=== PATIENT | female | born 1960 | race Caucasian/White ===

== ENCOUNTER → 2017-06-23 13:05 | Outpatient (CLI) | payer MEDICARE, OTHER, SELFPAY ==
--- NOTE | 2017-06-23 13:08 | RAD_ITS ---
STUDY: X-RAY - RIGHT KNEE REASON FOR EXAM: Bilateral knee pain. TECHNIQUE: 4 view(s) of the knee. COMPARISON: None. FINDINGS: Normal visualized distal femur. Normal visualized proximal tibia and fibula. Normal proximal tibiofibular articulation. Normal medial femorotibial compartment. Normal lateral femorotibial compartment. Normal patellofemoral articulation. There is a small enthesophyte at the superior pole of the patella. RAD/Knee 4 or More Views IMPRESSION: Small patellar enthesophyte. Electronically Signed: Piero Sellers MD at 14:50 EDT Tel , Service support ,
--- NOTE | 2017-06-23 13:08 | RAD_ITS ---
STUDY: X-RAY - LEFT KNEE REASON FOR EXAM: Bilateral knee pain. TECHNIQUE: 4 view(s) of the knee. COMPARISON: None. FINDINGS: Normal visualized distal femur. Normal visualized proximal tibia and fibula. Normal proximal tibiofibular articulation. Normal medial femorotibial compartment. Normal lateral femorotibial compartment. There are small marginal osteophytes of the patella without joint space narrowing of the patellofemoral articulation. There is a small enthesophyte at the superior pole of the patella. RAD/Knee 4 or More Views IMPRESSION: Small marginal osteophytes of the patella. Small patellar enthesophyte. Electronically Signed: Piero Sellers MD at 14:51 EDT Tel , Service support ,
== END ==
PROVIDERS: Family Provider Family Medicine; PCP Family Medicine; Visit Provider Orthopaedic Surgery
DX: M25.561 Pain in right knee (principal); M25.562 Pain in left knee
CPT/HCPCS: 73564

== ENCOUNTER 2017-08-05 10:30 | Outpatient (RCR) | payer MEDICARE, OTHER, SELFPAY ==
--- NOTE | 2017-06-30 13:03 | HP.PTEVAL_ITS ---
Patient's Visit Information CHRISTEL MEYER is a 56 year old F referred to Physical Therapy by Kaylee Ordaz DO with a diagnosis of B knee pain. Date of Evaluation: 06/30/17 Physical Therapist: Mitchell Cadena DPT, OC - Visit Plan Frequency: 2x /Week Duration: 4-6 Weeks Plan: 2x/week for 4 weeks for AT for HS adn quad stretches, Knee AROM, Strength of LE, and LB ROM and core strength. Work to I program. - Subjective Subjective: Dr. Ordaz wanted her to come back after a fall as one knee hurt. R knee hurts anteriorly since falling. is remodelling basement and she tripped on his wood. Balance feels OK. Iced it and went to see Dr. Ku who did x ray and showed degeneration. Has had h/o L knee injections. Steps are hard and needs to do them one at a time. Up is easier then down. Fall was May late, and it did not hurt before that fall . Was unable prior to fall to come down steps due to R nerve pain in knee. Retired from [employer] due to LBP. Sitting is no problem. Ankles swell for years after injection in back. Sleep is OK, sometimes puts pillow under knees. Basic ADL are I and has to go slow and take breaks from standing. Has to limit cleaning to one room at a time. Laundry is in basement. Unable to do photography hobby as she is limiting in her standing and stooping. - Pain R anterior knee. Pain Intensity (Out of 10): 0 Pain Intensity Range: 0, 9 Comment: steps are 9/10, walking and sitting are better. - Objective Walks with cane slow and R antalgia but I.. Trasnfers to and fro chair with UE. Trasnfer to and from mat supine I and very painful in LB. LB AROM limited and painful to move. Lying supine is painful. LE AROM slow and painful in supine to 90 degrees R knee flexion and 105 L. Tight end feel and painful with OP but gets to 104 on R limited by pain. ankle aROM WFL and strength at 4-. Knee strength 3+ R knee ext and 4- L, 4- B HSC, mild pain R knee extension. reflexes 1/3 patella and achilles. Tender to touch lateral distal R patella and B patella stiff. Sensation LE WNL to gross light touch. - ant drawer adn Catrina. - posterior sag. - varus and valgus. - Goals Goal 1:: Pain 90% back to normal and always painfree at rest Goal Time Frame: 2-4 Weeks Goal 2:: Transfer to and fro supine in a timely manner withpout obvoious pain. Goal Time Frame: 4-6 Weeks Goal 3:: Pain no greater than 2/10 with ambulation at home and chores/cooking. Goal Time Frame: 4-6 Weeks - Rehabilitation Potential Physical Therapy Diagnosis: B knee pain exacerbated R inflammation with fall. Prognosis limited due to LBP with movement. Rehabilitation Potential: Fair - Anticipated Interventions Patient/Client Instruction: Educate patient on: Condition, Plan of Care For the Purpose of:: To decrease pain, To increase oxygenation perfusion Therapeutic Exercise to Include: Strength training, Flexibilty training, In an aquatic setting, Passive ROM, Active ROM, Dynamic Lumbar Stabilization For the Purpose of:: To decrease pain, To increase ROM, To improve nutrient delivery to tissue, To improve muscle performance and motor function, To improve ability of physical actions for home/community/work/leisure, To improve gait and locomotor functions Thank you for the opportunity to evaluate your patient. For Medicare and Medicare HMO plans, please review the plan of care and approve it. It will need to be FAXED BACK to us at [phone] for Medicare purposes. Please let me know if there are questions or concerns regarding this plan of care. Physician Signature: Date:
--- NOTE | 2017-08-05 11:15 | HP.PTDCSUM_ITS ---
HP - PT D/C Summary It has been my pleasure to treat CHRISTEL MEYER under orders from Kaylee Ordaz DO, for the diagnosis of B knee pain for a total of 9 visit(s). Discharge Date: 08/05/17 Please see the following information for a summary of their discharge status. 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 Water for a while made nerves pulse and feel abrasive on the skin. Both knees can meg tanteriorly. R knee is OK since the fall but still painful and sometimes feels numb. Some improvement overall, not where she wants to be - Pain R anterior knee. Pain Intensity (Out of 10): 0 L knee Pain Intensity (Out of 10): 0 Lumbar Spine Pain Intensity (Out of 10): 0 - Objective Objective/Function: Knee ROM is 110+ without pain today, mild tenderness to palpation L anterior knee, full extension B. walking without antalgia today. transfer to and fro supine still very challenging and had MRI on back and has stenosis. OVERALL PATIENT DOES OK WITH THE WATER BUT DISCOMFORT IN KNEES STILL FRUSTRATING AT TIMES. - Goals Goal 1:: Pain 90% back to normal and always painfree at rest Goal Progress: not met Goal 2:: Transfer to and fro supine in a timely manner withpout obvoious pain. Goal Progress: Not Progressing Goal 3:: Pain no greater than 2/10 with ambulation at home and chores/cooking. Goal Progress: Goal Met - Plan Plan: D/C, pt to schedule with [facility] for other options(consider bracing) and continue pool ex I at home or as member. - D/C Information Discharge Comments: Pt not significantly improved in pain but does feel better generally ex in the water. She feels she can continue that I at her home pool or will consider joining as a member. She will schedule with doctor regarding other options for her knees adn is already treated by a back doctor for her back pain and had MRI which shows spinal stenosis. If there are questions or concerns regarding this patient's physical therapy, please feel free to call me at [phone]. Thank you for the referral of this patient. Sincerely, iMtchell Cadena, DPT, [place]
== END 2017-08-05 19:00 | disposition home or self-care (01) ==
LOC: PT 10:30
PROVIDERS: Family Provider Family Medicine; PCP Family Medicine; Visit Provider Orthopaedic Surgery
DX: M17.0 Bilateral primary osteoarthritis of knee (principal)
CPT/HCPCS: 97113; 97162; 97530

== ENCOUNTER → 2017-12-15 11:44 | Outpatient (CLI) | payer MEDICARE, OTHER, SELFPAY ==
--- NOTE | 2017-12-15 11:49 | RAD_ITS ---
STUDY: X-RAY - RIGHT SHOULDER REASON FOR EXAM: Female, 57 years old. Right shoulder pain TECHNIQUE: 4 view(s) of the shoulder. COMPARISON: None. FINDINGS: Normal glenohumeral articulation. There is degenerative arthrosis of the acromioclavicular joint without inferior osseous spur formation. Normal acromion. Normal humeral head and visualized proximal humerus. The soft tissue structures are unremarkable. Normal visualized pulmonary apex. RAD/Shoulder min 2 Views IMPRESSION: Minimal degenerative change. No acute findings Electronically Signed: Keith Narayanan DO at 10:09 EST Tel , Service support ,
== END ==
PROVIDERS: Family Provider Family Medicine; PCP Family Medicine; Referring Provider Family Medicine; Visit Provider Family Medicine
DX: M25.511 Pain in right shoulder (principal)
CPT/HCPCS: 73030

== ENCOUNTER → 2017-12-19 07:21 | Outpatient (CLI) | payer MEDICARE, OTHER, SELFPAY ==
--- NOTE | 2017-12-19 07:24 | US_ITS ---
STUDY: ABDOMINAL ULTRASOUND REASON FOR EXAM: Female, 57 years old. Right upper quadrant pain. TECHNIQUE: Transabdominal ultrasound was performed with real-time and static durán scale imaging. TECHNICAL QUALITY: Adequate. COMPARISON: None. FINDINGS: Liver: The liver is enlarged and measures 21.4 cm. There is increased echogenicity consistent with fatty infiltration. The bile ducts are within normal limits. There is hepatic color flow. The direction of portal flow is hepatopetal. There is no demonstrated mass lesion. Portal vein measurement: Gallbladder: Normal distended gallbladder. The gallbladder wall measures 2.0 mm. There is a negative sonographic Story's sign. There is no pericholecystic fluid. There are multiple echogenic structures within the gallbladder, consistent with multiple gallstones. Common Bile Duct (C.B.D.): The common bile duct measures 3.4 mm. Pancreas: Normal size of the head, body of the pancreas. The tail portion is obscured due to overlying bowel gas. There is normal echogenicity of the pancreas. There is no demonstrated pancreatic mass or cyst. Spleen: Normal size of the spleen. The spleen measures 12.8 cm x 6.6 cm x 4.9 cm. Right Kidney: Normal size of the right kidney. The right kidney measures 12.6 cm x 5.4 cm x 5.0 cm. Normal renal cortex. The right cortex measures 1.1 cm. There is no demonstrated renal mass or cyst. There is no right hydronephrosis. Left Kidney: Normal size of the left kidney. The left kidney measures 12.0 cm x 5.7 cm x 5.0 cm. Normal renal cortex. The left cortex measures 1.6 cm. There is no demonstrated renal mass or cyst. There is no left hydronephrosis. Aorta: Unremarkable. I.V.C.: The IVC is patent. There is no ascites. US/Abdomen Complete IMPRESSION: Hepatomegaly. Fatty infiltration of the liver. Gallstones. Electronically Signed: Nando Chu MD at 16:04 EST Tel [phone], Service support ,
== END ==
PROVIDERS: Family Provider Family Medicine; PCP Family Medicine; Referring Provider Family Medicine; Visit Provider Family Medicine
DX: R10.31 Right lower quadrant pain (principal)
CPT/HCPCS: 76700

== ENCOUNTER → 2018-01-03 07:48 | Outpatient (CLI) | payer MEDICARE, OTHER, SELFPAY ==
[2017-12-27 09:36] VITALS: BMI 50.2
--- NOTE | 2018-01-03 07:53 | CT_ITS ---
STUDY: CT ABDOMEN AND PELVIS WITHOUT CONTRAST REASON FOR EXAM: Female, 57 years old. pain right groin pain RADIATION DOSAGE (If Supplied By Facility): CTDIvol = ( 23.26 ) mGy, DLP = ( 1278.24 ) mGycm TECHNIQUE: Transaxial images were obtained from the dome of the diaphragm to the symphysis pubis with oral contrast, and without intravenous contrast. Sagittal and coronal images were reconstructed. Individualized dose optimization techniques were used for this CT. COMPARISON: None. FINDINGS: The visualized lung bases are unremarkable. The visualized portions of the heart are within normal limits. The liver is enlarged and fatty infiltrated. Normal gallbladder and extrahepatic biliary system. Normal spleen. Normal pancreas. Normal bilateral adrenal glands. Normal right kidney. Normal left kidney. There is contrast in the stomach. Normal small intestine. There is moderate stool in the colon. There may be a few diverticula present without evidence of diverticulitis. There is non-visualization of the appendix. Is partial calcification of the aorta. Normal inferior vena cava. Normal retroperitoneum. Normal urinary bladder. There is a calcification in the fundus of the uterus suggesting fibroid. There is a small umbilical hernia containing fat. There is anterolisthesis L4-L5 with severe neural foramina narrowing severe central stenosis. At L3-L4 there is disc space narrowing broad disc osteophyte severe neural foraminal narrowing severe central stenosis. CT/Abdomen/Pel W ORAL Cont Only IMPRESSION: Mild to moderate constipation Hepatic steatosis. Diverticulosis no evidence of diverticulitis Advanced degenerative change of L3-L4 L4-L5 No visualized hydronephrosis. Electronically Signed: Stefani Marinelli MD at 2:57 EST Tel , Service support ,
--- OUTSIDE RECORDS SUMMARY | 2018-02-14 20:25 | XMS RPT_ITS ---
:1960 Author Organization OHIP Support Name Relationship Address Phone D Unavailable Unavailable Unavailable MITCH, WENDY Unavailable [address] + [place] [address] MITCH, KENIA Unavailable [address] + [place] [address] D Unavailable Unavailable Unavailable MITCH, WENDY Unavailable [address] + [place] [address] MITCH, KENIA Unavailable [address] + [place] [address] D Unavailable Unavailable Unavailable MITCH, WENDY Unavailable [address] + [place] [address] MITCH, KENIA Unavailable [address] + [place] [address] D Unavailable Unavailable Unavailable MITCH, WENDY Unavailable [address] + [place] [address] MITCH, KENIA Unavailable [address] + [place] [address] D Unavailable Unavailable Unavailable MITCH, WENDY Unavailable [address] + [place] [address] MITCH, KENIA Unavailable [address] + [place] [address] D Unavailable Unavailable Unavailable MITCH, WENDY Unavailable [address] + [place] [address] MITCH, KENIA Unavailable [address] + [place] [address] D Unavailable Unavailable Unavailable MITCH, WENDY Unavailable [address] + [place] [address] MITCH, KENIA Unavailable [address] + [place] [address] D Unavailable Unavailable Unavailable MITCH, WENDY Unavailable [address] + [place] [address] MITCH, KENIA Unavailable [address] + [place] [address] MITCH, WENDY Unavailable Unavailable + D Unavailable Unavailable Unavailable MITCH, WENDY Unavailable [address] + [place] [address] MITCH, KENIA Unavailable [address] + [place] [address] MITCH, WENDY Unavailable Unavailable + D Unavailable Unavailable Unavailable MITCH, WENDY Unavailable [address] + [place] [address] MITCH, KENIA Unavailable [address] + [place] [address] D Unavailable Unavailable Unavailable MITCH, WENDY Unavailable [address] + [place] [address] MITCH, KENIA Unavailable [address] + [place] [address] MITCH, WENDY Unavailable Unavailable + MITCH, WENDY Unavailable [address] + [place] [address] MITCH, WENDY Unavailable [address] + [place] [address] MITCH, WENDY Unavailable [address] + [place] [address] MITCH, WENDY Unavailable [address] + [place] [address] D Unavailable Unavailable Unavailable MITCH, WENDY Unavailable [address] + [place] [address] MITCH, KENIA Unavailable [address] + [place] [address] MITCH, WENDY Unavailable [address] + [place] [address] MITCH, WENDY Unavailable [address] + [place] [address] MITCH, WENDY Unavailable [address] + [place] [address] MITCH, WENDY Unavailable [address] + [place] [address] WENDY MEYER Unavailable [address] + [place] [address] WENDY MEYER Unavailable [address] + [place] [address] Care Team Providers Name Role Phone Robotlakisha, Giselle Attending Unavailable Brown, Faisal Referring Unavailable Robotham, Giselle Attending Unavailable Robotham, Giselle Attending Unavailable Robotham, Giselle Referring Unavailable Brown, Faisal Primary Care Unavailable Robotham, Giselle Attending Unavailable Brown, Faisal Referring Unavailable Brown, Faisal Attending Unavailable Brown, Faisal Primary Care Unavailable Brown, Faisal Referring Unavailable Brown, Faisal Attending Unavailable Brown, Faisal Referring Unavailable Brown, Faisal Primary Care Unavailable Brown, Faisal Attending Unavailable Brown, Faisal Referring Unavailable Chicorelli, Kaylee Attending Unavailable Chicorelli, Kaylee Referring Unavailable Brown, Faisal Primary Care Unavailable Chicorelli, Kaylee Attending Unavailable Chicorelli, Kaylee Referring Unavailable Brown, Faisal Primary Care Unavailable Chicorelli, Kaylee Attending Unavailable Brown, Faisal Referring Unavailable Brown, Faisal Primary Care Unavailable Brown, Faisal Primary Care Unavailable Referred, Self Attending Unavailable DOCTOR, OUT OF TOWN Consulting Unavailable Brown, Faisal Attending Unavailable Brown, Faisal Referring Unavailable Brown, Faisal Primary Care Unavailable KEVIN PETERS CNP Attending Unavailable BROWN, FAISAL Primary Care Unavailable HEMANTH LUNA MD Attending Unavailable BROWN, FAISAL Primary Care Unavailable ETHAN NORTON CNP Attending Unavailable BROWN, FAISAL Primary Care Unavailable HEMANTH LUNA MD Attending Unavailable BROWN, FAISAL Primary Care Unavailable BROWN, FAISAL Attending Unavailable BROWN, FAISAL Primary Care Unavailable Ethan Norton MSN,PRODUCT SUPPORT REPRESENTATIVE Attending Unavailable Ethan Norton MSN,PRODUCT SUPPORT REPRESENTATIVE Attending Unavailable Ethan Norton MSN,PRODUCT SUPPORT REPRESENTATIVE Attending Unavailable Willis Dejesus Attending Unavailable Brown, Faisal R Primary Care Unavailable Ethan Norton MSN,PRODUCT SUPPORT REPRESENTATIVE Attending Unavailable No Family Physician given Primary Care Unavailable PROBLEMS PROBLEMS DATE TYPE CONDITION / CODE ATTENDING STATUS SOURCE 12/27/2017 Unknown R10.31 - Right lower Robotham, Active [place] quadrant pain / [facility] R10.31(ICD-10) Hospital Repository 12/15/2017 Unknown M25.511 - Pain in Brown, Faisal Active [place] right shoulder / Community M25.511(ICD-10) Hospital Repository 12/06/2017 Unknown G89.29 - Other Brown, Faisal Active [place] chronic pain / Community G89.29(ICD-10) Hospital Repository 12/06/2017 Unknown H91.93 - Unspecified Brown, Faisal Active [place] hearing loss, Community bilateral / Hospital H91.93(ICD-10) Repository 12/06/2017 Unknown M53.9 - Dorsopathy, Brown, Faisal Active [place] unspecified / Community M53.9(ICD-10) Hospital Repository 12/06/2017 Unknown M17.0 - Bilateral Brown, Faisal Active [place] primary Community osteoarthritis of Hospital knee / M17.0(ICD-10) Repository 06/23/2017 Unknown M25.561 - [facility], [facility] [place] right knee / [facility] M25.561(ICD-10) Hospital Repository 06/23/2017 Unknown M25.562 - Pain in [facility], [facility] [place] [facility] 03/30/2017 Admitting Unknown / Ethan Norton Medical diagnosis UNK(Unknown) MSN,[facility] [place] Repository PROCEDURES PROCEDURES No Procedure Records FoundRESULTS RESULTS SURGERY VISIT REPORT Observed: 01/16/2018 Status: F Source: [place] 8:16 AM [facility] [address] [place] [address] [address] [place] [address] OFFICE VISIT Date of Service: 01/11/18 MR#: [id number] Acct: [id number] Name: CHRISTEL MEYER Rep #: [id number] : 1960 Provider: Giselle Moody MD Age/Sex: 57/F Location: [facility] Status: Signed Intake Vital Signs01/11/18 Body Mass Index (BMI) 50.2 Intake Visit Reasons: Discuss CT results Chief Complaint: Rt shoulder pain Social Services Director Required: No Is patient in pain?: No Allergies mushroom Allergy (Verified 01/11/18 09:19) Anaphylaxis [place] Adverse Reaction (Unknown, Uncoded 12/27/17 09:38) Unknown Medications Calcium Carbonate/Vitamin D3 [Caltrate 600 Plus D3 Tablet] 1 ea PO DAILY 07/28/16 [History Confirmed 01/11/18] Iron Poly/Vit C [Niferex-150] 125 mg PO DAILYCM 07/28/16 [History Confirmed 01/11/18] Latanoprost 0.005% [Xalatan Opthalmic] 1 drp EACH EYE QHS 07/28/16 [History Confirmed 01/11/18] Multivitamins,Therapeutic [Multivitamin] 1 tab PO DAILY 07/28/16 [History Confirmed 01/11/18] Pregabalin [Lyrica] 150 mg PO TID 07/28/16 [History Confirmed 01/11/18] Timolol 0.5% [Timoptic] 1 drp EACH EYE BID 07/28/16 [History Confirmed 01/11/18] Verapamil HCl [Verapamil ER] 120 mg PO DAILY 07/28/16 [History Confirmed 01/11/18] traMADol [Ultram (G)] 50 mg PO Q4H PRN PRN 07/28/16 [History Confirmed 01/11/18] levocetirizine 5 mg tablet 5 mg PO QHS PRN #30 tab 05/18/17 [Rx Confirmed 01/11/18] montelukast 10 mg tablet 10 mg PO QHS 05/25/17 [History Confirmed 01/11/18] methylprednisolone 4 mg tablets in a dose pack See Rx Instructions PO PER PKG DIR #21 tab 12/06/17 [Rx Confirmed 01/11/18] diclofenac sodium 75 mg tablet,delayed release 75 mg PO BID #60 tab 01/03/18 [Rx Confirmed 01/11/18] PFSH Medical History Deaf (Chronic) Amyloid pterygium of right eye (Acute) Deaf (Chronic) DJD (degenerative joint disease) of knee (Chronic) Back problem (Chronic) Arthritis (Chronic) Surgical History Hx of toe surgery (Acute) History of appendectomy (Acute) Family History Father Heart disease Son Asthma Mother Arthritis Aunt Diabetes Social History Smoking Status: Never smoker second hand exposure: No alcohol intake: never substance use type: does not use caffeine: Yes what type of physical activity do you participate in: none seatbelt use: always HPI HPI HPI: CHRISTEL MITCH, is a 57 F who presents to the office today for discussion of CT results due to left lower quadrant/groin pain. Patient CT abdomen pelvis did not show any inguinal or right lower quadrant hernia. Patient states that she thinks that her pain may be actually a little higher than previously so may be more in the right lower quadrant versus the groin. She states she gets this pain about once every 4 days. She also states she will get right leg numbness with prolonged sitting and occasional left leg numbness of the numbness can occur maybe about every 2 days or so she is unsure if the pain coincides with her leg numbness as well. Patient does have multiple back problems. Exam Const General: cooperative, no acute distress, comfortable Nutritional Appearance: obese GI Other: Abdomen, soft, nondistended, mildly tender at the top of her previous appendectomy incision which is more in the right lower quadrant and not the right groin, no appreciated hernia in the right lower quadrant or right groin Assessment AND Plan Problems 1. Right lower quadrant abdominal pain R10.31 Plan Patient's pain is now mainly in the right lower quadrant not in the right groin. States he only gets it about every 4 days. She also did note she will get right leg numbness with walking or with some prolonged sitting. Discussed with patient that CT abdomen pelvis did not show any signs of a hernia and again on exam I do not appreciate any hernias. This may be due to a muscle strain versus issue with her back. Especially if her right leg numbness occurs about the same time which currently patient is unsure of. She does have an appointment with her back doctor at the end of January. Recommend she can try to take the ibuprofen to see if that helps with the pain but recommended taking that with food. Patient is agreeable with plan. Follow-up as needed. Patient agreeable with plan Giselle Moody M.D. Pager: [phone] [facility] [address] [place] [address], [facility], [address] [place] [id number] Office: [phone] Plan Detail Follow Up Follow-up as needed Coding Level of Care Code Off vis,est,level 3 Diagnoses Right lower quadrant abdominal pain R10.31 01/16/18 0816 <Electronically signed by Giselle Moody MD> Date [facility]elle [facility] Signature: Date (if applicable) CC: Faisal Matthews DO ABDOMEN/PEL W ORAL CONT Observed: 01/03/2018 Status: F Source: [place] ONLY 7:53 AM [facility] Services [address] [place] [address] Abdomen/Pel W ORAL Cont Only MR#: [id number] Acct: [id number] Name: CHRISTEL MEYER Rep #: [id number] : 1960 F 57 From: Stefani Marinelli MD PCP: Faisal Matthews DO Status: REG CLI Study: Abdomen/Pel W ORAL Cont Only Date of Exam: 01/03/18 Exam# [id number] Ordering Dr: Giselle Moody MD STUDY: CT ABDOMEN AND PELVIS WITHOUT CONTRAST REASON FOR EXAM: Female, 57 years old. pain right groin pain RADIATION DOSAGE (If Supplied By Facility): CTDIvol = ( 23.26 ) mGy, DLP = ( 1278.24 ) mGycm TECHNIQUE: Transaxial images were obtained from the dome of the diaphragm to the symphysis pubis with oral contrast, and without intravenous contrast. Sagittal and coronal images were reconstructed. Individualized dose optimization techniques were used for this CT. COMPARISON: None. FINDINGS: The visualized lung bases are unremarkable. The visualized portions of the heart are within normal limits. The liver is enlarged and fatty infiltrated. Normal gallbladder and extrahepatic biliary system. Normal spleen. Normal pancreas. Normal bilateral adrenal glands. Normal right kidney. Normal left kidney. There is contrast in the stomach. Normal small intestine. There is moderate stool in the colon. There may be a few diverticula present without evidence of diverticulitis. There is non-visualization of the appendix. Is partial calcification of the aorta. Normal inferior vena cava. Normal retroperitoneum. Normal urinary bladder. There is a calcification in the fundus of the uterus suggesting fibroid. There is a small umbilical hernia containing fat. There is anterolisthesis L4-L5 with severe neural foramina narrowing severe central stenosis. At L3-L4 there is disc space narrowing broad disc osteophyte severe neural foraminal narrowing severe central stenosis. CT/Abdomen/Pel W ORAL Cont Only IMPRESSION: Mild to moderate constipation Hepatic steatosis. Diverticulosis no evidence of diverticulitis Advanced degenerative change of L3-L4 L4-L5 No visualized hydronephrosis. Electronically Signed: [place] MD at 2:57 EST Tel , Service support , CC: Faisal Matthews DO; Giselle Moody MD Title One Reading Teacher: Signed SURGERY VISIT REPORT Observed: 12/28/2017 Status: F Source: [place] 6:47 PM [facility] [address] [place] [address] [address] [place] [address] OFFICE VISIT Date of Service: 12/27/17 MR#: [id number] Acct: [id number] Name: CHRISTEL MEYER Rep #: [id number] : 1960 Provider: Giselle Moody MD Age/Sex: 57/F Location: [facility] Status: Signed Intake Vital Signs12/27/17 Height 4 ft 11.5 in 12/27/17 Weight: 253 lb Intake Visit Reasons: Gall Stones US 12/19 [facility] Chief Complaint: Rt shoulder pain Social Services Director Required: Yes Is patient in pain?: No Allergies mushroom Allergy (Verified 12/27/17 09:38) Anaphylaxis [place] Adverse Reaction (Unknown, Uncoded 12/27/17 09:38) Unknown Medications Calcium Carbonate/Vitamin D3 [Caltrate 600 Plus D3 Tablet] 1 ea PO DAILY 07/28/16 [History Confirmed 12/27/17] Iron Poly/Vit C [Niferex-150] 125 mg PO DAILYCM 07/28/16 [History Confirmed 12/27/17] Latanoprost 0.005% [Xalatan Opthalmic] 1 drp EACH EYE QHS 07/28/16 [History Confirmed 12/27/17] Multivitamins,Therapeutic [Multivitamin] 1 tab PO DAILY 07/28/16 [History Confirmed 12/27/17] Pregabalin [Lyrica] 150 mg PO TID 07/28/16 [History Confirmed 12/27/17] Timolol 0.5% [Timoptic] 1 drp EACH EYE BID 07/28/16 [History Confirmed 12/27/17] Verapamil HCl [Verapamil ER] 120 mg PO DAILY 07/28/16 [History Confirmed 12/27/17] traMADol [Ultram (G)] 50 mg PO Q4H PRN PRN 07/28/16 [History Confirmed 12/27/17] levocetirizine 5 mg tablet 5 mg PO QHS PRN #30 tab 05/18/17 [Rx Confirmed 12/27/17] diclofenac sodium 75 mg tablet,delayed release 75 mg PO BID #60 tab 05/25/17 [Rx Confirmed 12/27/17] montelukast 10 mg tablet 10 mg PO QHS 05/25/17 [History Confirmed 12/27/17] methylprednisolone 4 mg tablets in a dose pack See Rx Instructions PO PER PKG DIR #21 tab 12/06/17 [Rx Confirmed 12/27/17] PFSH Medical History Deaf (Chronic) Amyloid pterygium of right eye (Acute) Deaf (Chronic) DJD (degenerative joint disease) of knee (Chronic) Back problem (Chronic) Arthritis (Chronic) Surgical History Hx of toe surgery (Acute) History of appendectomy (Acute) Family History Father Heart disease Son Asthma Mother Arthritis Aunt Diabetes Social History Smoking Status: Never smoker second hand exposure: No alcohol intake: never substance use type: does not use caffeine: Yes what type of physical activity do you participate in: none seatbelt use: always HPI HPI HPI: CHRISTEL MEYER, is a 57 F who presents to the office today for R groin pain 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 Pt states she gets R groin discomfort 3-4/10 and marble-like bulge (can't reduce) +ttp. Pt denies n/v/epigastric/ RUQ, LUQ abd pain. Pt had U/S abd - +fatty liver and a couple of gallstones, pt thought the U/S was for her right groin pain. She admits to GERD with certain foods > 5years ago but none currently. ROS General General: Yes weight change and fatigue Gastro Gastrointestinal: No abdominal pain, No nausea or vomiting, No diarrhea, Yes constipation, No blood in stool, No acid reflux, No hemorrhoids, No ulcers, No gallbladder problem, No black,tarry stools Exam Const General: cooperative, healthy appearing, comfortable, no acute distress Resp Effort AND Inspection: normal respiratory effort GI Inspection: obesity, scar (RLQ scar) Palpation: soft, no guarding, tender (right groin/lower quadrant) Other: due to body habitus unable to feel an obvious hernia, +ttp RLQ/groin Assessment AND Plan Problems 1. Right groin pain R10.[address] a/p as I'm unable to feel an obvious hernia also she has a RLQ from her appendectomy, so if she did have a hernia could be in the groin vs at previous incision, unable evaluation well on exam. Pt is agreeable with plan. Also discussed with pt the importance of healthy diet/watching calorie intake as she is unable to exercise due to her back. Orders Orders: Plan Detail Follow Up will f/u w pt after CT a/p Coding Level of Care Code Off vis,new,level 3 Diagnoses Right groin pain R10.31 12/28/17 6347 <Electronically signed by Giselle Moody MD> Date Giselle Moody MD Cosigner Signature: Date (if applicable) CC: Faisal Matthews, DO ABDOMEN COMPLETE Observed: 12/19/2017 Status: F Source: [place] 7:24 AM [facility] [address] [place] [address] Abdomen Complete MR#: [id number] Acct: [id number] Name: CHRISTEL MEYER Rep #: [id number] : 1960 F 57 From: Nando Chu MD PCP: Faisal Matthews DO Status: REG CLI Study: Abdomen Complete Date of Exam: 12/19/17 Exam# [id number] Ordering Dr: Faisal Matthews DO STUDY: ABDOMINAL ULTRASOUND REASON FOR EXAM: Female, 57 years old. Right upper quadrant pain. TECHNIQUE: Transabdominal ultrasound was performed with real-time and static durán scale imaging. TECHNICAL QUALITY: Adequate. COMPARISON: None. FINDINGS: Liver: The liver is enlarged and measures 21.4 cm. There is increased echogenicity consistent with fatty infiltration. The bile ducts are within normal limits. There is hepatic color flow. The direction of portal flow is hepatopetal. There is no demonstrated mass lesion. Portal vein measurement: Gallbladder: Normal distended gallbladder. The gallbladder wall measures 2.0 mm. There is a negative sonographic Story's sign. There is no pericholecystic fluid. There are multiple echogenic structures within the gallbladder, consistent with multiple gallstones. Common Bile Duct (C.B.D.): The common bile duct measures 3.4 mm. Pancreas: Normal size of the head, body of the pancreas. The tail portion is obscured due to overlying bowel gas. There is normal echogenicity of the pancreas. There is no demonstrated pancreatic mass or cyst. Spleen: Normal size of the spleen. The spleen measures 12.8 cm x 6.6 cm x 4.9 cm. Right Kidney: Normal size of the right kidney. The right kidney measures 12.6 cm x 5.4 cm x 5.0 cm. Normal renal cortex. The right cortex measures 1.1 cm. There is no demonstrated renal mass or cyst. There is no right hydronephrosis. Left Kidney: Normal size of the left kidney. The left kidney measures 12.0 cm x 5.7 cm x 5.0 cm. Normal renal cortex. The left cortex measures 1.6 cm. There is no demonstrated renal mass or cyst. There is no left hydronephrosis. Aorta: Unremarkable. I.V.C.: The IVC is patent. There is no ascites. US/Abdomen Complete IMPRESSION: Hepatomegaly. Fatty infiltration of the liver. Gallstones. Electronically Signed: Nando Chu MD at 16:04 EST Tel [phone], Service support , CC: Faisal Matthews DO Title One Reading Teacher: Signed SHOULDER MIN 2 VIEWS Observed: 12/15/2017 Status: F Source: [place] 11:49 AM [facility] Imaging Services [address] [place] [id number] Shoulder min 2 Views MR#: [id number] Acct: [id number] Name: MITCHCHRISTEL MILLER Hi Rep #: [id number] : 1960 F 57 From: Keith Narayanan DO PCP: Faisal Matthews DO Status: REG CLI Study: Shoulder min 2 Views Date of Exam: 12/15/17 Exam# [id number] Ordering Dr: Faisal Matthews DO STUDY: X-RAY - RIGHT SHOULDER REASON FOR EXAM: Female, 57 years old. Right shoulder pain TECHNIQUE: 4 view(s) of the shoulder. COMPARISON: None. FINDINGS: Normal glenohumeral articulation. There is degenerative arthrosis of the acromioclavicular joint without inferior osseous spur formation. Normal acromion. Normal humeral head and visualized proximal humerus. The soft tissue structures are unremarkable. Normal visualized pulmonary apex. RAD/Shoulder min 2 Views IMPRESSION: Minimal degenerative change. No acute findings Electronically Signed: Keith Narayanan DO at 10:09 EST Tel , Service support , CC: Faisal Matthews DO Title One Reading Teacher: Signed INTERNAL MEDICINE Observed: 12/06/2017 Status: F Source: [place] OFFICE VISIT 12:47 PM [facility] [address] [place] [address] [place] [address] OFFICE VISIT Date of Service: 12/06/17 MR#: [id number] Acct: [id number] Name: CHRISTEL MEYER Rep #: [id number] : 1960 Provider: Faisal Matthews DO Age/Sex: 57/F Location: [facility] Status: Signed Intake Vital Signs12/06/17 Height 4 ft 11.5 in 12/06/17 Weight: 253 lb 12/06/17 Body Mass Index (BMI) 50.2 12/06/17 Blood Pressure 109/72 12/06/17 Blood Pressure Location Rt brachial Intake Visit 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, 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 Chief Complaint: Rt shoulder pain Social Services Director Required: Yes Is patient in pain?: Yes (Rt shoulder ) Pain scale (1-10): 3 Allergies mushroom Allergy (Verified 12/06/17 11:30) Anaphylaxis [place] Adverse Reaction (Unknown, Uncoded 12/06/17 11:30) Unknown Medications Calcium Carbonate/Vitamin D3 [Caltrate 600 Plus D3 Tablet] 1 ea PO DAILY 07/28/16 [History Confirmed 12/06/17] Iron Poly/Vit C [Niferex-150] 125 mg PO DAILYCM 07/28/16 [History Confirmed 12/06/17] Latanoprost 0.005% [Xalatan Opthalmic] 1 drp EACH EYE QHS 07/28/16 [History Confirmed 12/06/17] Multivitamins,Therapeutic [Multivitamin] 1 tab PO DAILY 07/28/16 [History Confirmed 12/06/17] Potassium Gluconate 595 mg PO DAILY 07/28/16 [History Confirmed 12/06/17] Pregabalin [Lyrica] 150 mg PO TID 07/28/16 [History Confirmed 12/06/17] Timolol 0.5% [Timoptic] 1 drp EACH EYE BID 06/21/17 [History Confirmed 12/06/17] Verapamil HCl [Verapamil ER] 120 mg PO DAILY 07/28/16 [History Confirmed 12/06/17] traMADol [Ultram (G)] 50 mg PO Q4H PRN PRN 07/28/16 [History Confirmed 12/06/17] levocetirizine 5 mg tablet 5 mg PO QHS PRN #30 tab 05/18/17 [Rx Confirmed 12/06/17] diclofenac sodium 75 mg tablet,delayed release 75 mg PO BID #60 tab 05/25/17 [Rx Confirmed 12/06/17] montelukast 10 mg tablet 10 mg PO QHS 05/25/17 [History Confirmed 12/06/17] methylprednisolone 4 mg tablets in a dose pack See Rx Instructions PO PER PKG DIR #21 tab 12/06/17 [Rx Confirmed 12/06/17] PFSH Medical History Deaf (Chronic) Back problem (Chronic) Arthritis (Chronic) Surgical History History of appendectomy (Acute) Family History Father Heart disease Son Asthma Mother Arthritis Aunt Diabetes Social History Smoking Status: Never smoker alcohol intake: never substance use type: does not use what type of physical activity do you participate in: none HPI HPI Chief Complaint: Rt shoulder pain Details: CHRISTEL MEYER, is a 57 F who presents to the office today for right shoulder pain and some minimal left shoulder pain. She feels she injured herself about a month ago when she was getting out of her recliner. Pain is especially severe when she tries to lift her 3-month-old grandchild up. She also complains of feeling a painful lump in her right groin, which is not as big as it was several weeks ago but is still painful. ROS Const Constitutional: No chills, fatigue, fever(s), frequent falls, malaise, weakness, sleep problems or change in appetite Eyes Eyes: No blurry vision, change in vision, double vision, discharge or visual disturbances ENT ENT: No abnormal hearing, ear pain, ear pressure, tinnitus or dizziness/vertigo Resp Respiratory: No cough, shortness of breath or wheezing Cardio Cardiology: No chest pain at rest, chest pain with exertion, shortness of breath, dyspnea on exertion, generalized swelling, irregular heart rhythm, lightheadedness, orthopnea, fast heart rate or palpitations Gastro GI: Positive for abdominal pain (Rt Groin - feels like a ball); no change in bowel habits, constipation, diarrhea, nausea/dyspepsia or vomiting Genitourinary-Female: No difficulty urinating, burning urination, painful urination, urinary incontinence, urinary frequency, urinary urgency, urinary hesitancy, urinary retention, Frequent nighttime urination/ nocturia, sexual problems, genital lesions, abnormal vaginal bleeding, pelvic pain, vaginal dryness, vaginal odor or Vaginal Itching Musc Musculoskeletal: Positive for joint pain (Rt shoulder AND some on L. Injured when trying to get out of recliner chair.), back pain and limited range of motion; no joint swelling, numbness, tingling or muscle weakness Skin Skin: No change in skin color, itching, rash or wounds Breast Breast: No breast lump or breast pain Neuro Neurology: No frequent falls, weakness, abnormal hearing, numbness, tingling, unsteady gait/balance, dizziness, loss of vision, memory loss or visual disturbances Psych Psychiatric: No memory loss, No anxiety, No change in appetite, No depression, No Thoughts of harming yourself/Others Endo Endocrine: No fatigue, heat intolerance, increased thirst/drinking, increased hunger or increased urination Aller/Imm Allergy/Immunologic: No wheezing, itchy eyes or seasonal allergy symptoms Charles/Lymp Hematologic/Lymphatic: No easy bleeding, easy bruising or enlarged lymph nodes Exam Const General: cooperative Nutritional Appearance: overweight Orientation: oriented x3 Limitations: other limitations [facility] Ears: hearing grossly impaired bilaterally Resp Effort AND Inspection: normal respiratory effort Auscultation: Bilateral: Clear to Auscultation Cardio Palpation: normal PMI Rate: regular rate Rhythm: regular rhythm GI Inspection: normal to inspection Auscultation: normal bowel sounds Percussion: normal to percussion Palpation: tender in the RLQ, hernia direct inguinal (Perhaps a defect was palpated. Very localized tenderness) on the right Musc Musculoskeletal: Yes joint tenderness (Both shoulders tender at the AC joint, but neg objective findings. ); no joint redness, joint warmth, decreased ROM, spinal deformity, scoliosis to L, scoliosis to R, lordosis or muscle weakness Assessment AND Plan Problems 1. Acute pain of right shoulder M25.511 2. Groin pain, chronic, right R10.31; G89.29 3. Bilateral deafness H91.93 Patient has congenital deafness. 4. Back problem M53.9 5. 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 Plan This patient was seen for several complaints primary complaint was painful shoulders and while she had a lot of subjective complaints objectively I really could not find any problems with joint limitation or weakness just discomfort. Also her complaints in the abdomen there was a very localized area in the right groin that was extremely painful but it was just a questionable defect I really could not feel an obvious hernia but would like the opinion of the surgeon. X-ray of the shoulder was ordered we will try her on a burst steroid therapy and see how that helps if not we might have to try physical therapy because I really think evidence to do an MRI is lacking in this case. Orders Orders: Referrals: Medications New: Coding Level of Care Code Off vis,est,level 3 Diagnoses Acute pain of right shoulder M25.511 Chronicity: acute Groin pain, chronic, right R10.31; G89.29 Bilateral deafness H91.93 Laterality: bilateral Back problem M53.9 Primary osteoarthritis of both knees M17.0 Osteoarthritis type: primary Laterality: bilateral 12/06/17 1247 <Electronically signed by Faisal Matthews DO> Date Faisal Matthews DO Cosigner Signature: Date (if applicable) CC: PT D/C SUMMARY (1) Observed: 08/08/2017 Status: F Source: [place] 6:39 AM [facility] [place] [facility] Physical [facility] [address] [place] [address] Fax REHABILITATION SERVICES DISCHARGE SUMMARY MR#: [id number] Acct: [id number] Name: CHRISTEL MEYER Rep #: [id number] : 1960 56 From: Mitchell Cadena DPT, OCS, CSCS Referring Dr.: Kaylee Ordaz DO Status: REG RCR Insurance: MEDICARE PART A B [facility] HP - PT D/C Summary It has been my pleasure to treat CHRISTEL MEYER under orders from Kaylee Ordaz DO, for the diagnosis of B knee pain for a total of 9 visit(s). Discharge Date: 08/05/17 Please see the following information for a summary of their discharge status. - Subjective Subjective: Improved a little bit(through ice maker). Water for a while made nerves pulse and feel abrasive on the skin. Both knees can meg tanteriorly. R knee is OK since the fall but still painful and sometimes feels numb. Some improvement overall, not where she wants to be - Pain R anterior knee. Pain Intensity (Out of 10): 0 L knee Pain Intensity (Out of 10): 0 Lumbar Spine Pain Intensity (Out of 10): 0 - Objective Objective/Function: Knee ROM is 110+ without pain today, mild tenderness to palpation L anterior knee, full extension B. walking without antalgia today. transfer to and fro supine still very challenging and had MRI on back and has stenosis. OVERALL PATIENT DOES OK WITH THE WATER BUT DISCOMFORT IN KNEES STILL FRUSTRATING AT TIMES. - Goals Goal 1:: Pain 90% back to normal and always painfree at rest Goal Progress: not met Goal 2:: Transfer to and fro supine in a timely manner withpout obvoious pain. Goal Progress: Not Progressing Goal 3:: Pain no greater than 2/10 with ambulation at home and chores/cooking. Goal Progress: Goal Met - Plan Plan: D/C, pt to schedule with [facility] for other options(consider bracing) and continue pool ex I at home or as member. - D/C Information Discharge Comments: Pt not significantly improved in pain but does feel better generally ex in the water. She feels she can continue that I at her home pool or will consider joining as a member. She will schedule with doctor regarding other options for her knees adn is already treated by a back doctor for her back pain and had MRI which shows spinal stenosis. If there are questions or concerns regarding this patient's physical therapy, please feel free to call me at [phone]. Thank you for the referral of this patient. Sincerely, Mitchell Cadena DPT, OC <Electronically signed by Mitchell Cadena DPT, TYRELL, CSCS> 08/08/17 0639 CC: Kaylee Ordaz DO; Faisal Matthews DO EBG Signed INITAL EVALUATION (1) Observed: 07/05/2017 Status: F Source: [place] - PT 9:03 AM [facility] [place] [facility] [address] [place], [place] [address] Fax REHABILITATION SERVICES INITIAL EVALUATION MR#: [id number] Acct: [id number] Name: CHRISTEL MEYER Rep #: [id number] : 1960 56 From: Mitchell Cadena DPT, TYRELL, CSCS Referring Dr.: Kaylee Ordaz DO Status: REG RCR Insurance: MEDICARE PART A B [facility] Patient's Visit Information CHRISTEL MEYER is a 56 year old F referred to Physical Therapy by Kaylee Ordaz DO with a diagnosis of B knee pain. Date of Evaluation: 06/30/17 Physical Therapist: Mitchell Cadena DPT, MANDA - Visit Plan Frequency: 2x /Week Duration: 4-6 Weeks Plan: 2x/week for 4 weeks for AT for HS adn quad stretches, Knee AROM, Strength of LE, and LB ROM and core strength. Work to I program. - Subjective Subjective: Dr. Ordaz wanted her to come back after a fall as one knee hurt. R knee hurts anteriorly since falling. is remodelling basement and she tripped on his wood. Balance feels OK. Iced it and went to see Dr. Ku who did x ray and showed degeneration. Has had h/o L knee injections. Steps are hard and needs to do them one at a time. Up is easier then down. Fall was May late, and it did not hurt before that fall . Was unable prior to fall to come down steps due to R nerve pain in knee. Retired from [employer] due to LBP. Sitting is no problem. Ankles swell for years after injection in back. Sleep is OK, sometimes puts pillow under knees. Basic ADL are I and has to go slow and take breaks from standing. Has to limit cleaning to one room at a time. Laundry is in basement. Unable to do photography hobby as she is limiting in her standing and stooping. - Pain R anterior knee. Pain Intensity (Out of 10): 0 Pain Intensity Range: 0, 9 Comment: steps are 9/10, walking and sitting are better. - Objective Walks with cane slow and R antalgia but I.. Trasnfers to and fro chair with UE. Trasnfer to and from mat supine I and very painful in LB. LB AROM limited and painful to move. Lying supine is painful. LE AROM slow and painful in supine to 90 degrees R knee flexion and 105 L. Tight end feel and painful with OP but gets to 104 on R limited by pain. ankle aROM WFL and strength at 4-. Knee strength 3+ R knee ext and 4- L, 4- B HSC, mild pain R knee extension. reflexes 1/3 patella and achilles. Tender to touch lateral distal R patella and B patella stiff. Sensation LE WNL to gross light touch. - ant drawer adn Catrina. - posterior sag. - varus and valgus. - Goals Goal 1:: Pain 90% back to normal and always painfree at rest Goal Time Frame: 2-4 Weeks Goal 2:: Transfer to and fro supine in a timely manner withpout obvoious pain. Goal Time Frame: 4-6 Weeks Goal 3:: Pain no greater than 2/10 with ambulation at home and chores/cooking. Goal Time Frame: 4-6 Weeks - Rehabilitation Potential Physical Therapy Diagnosis: B knee pain exacerbated R inflammation with fall. Prognosis limited due to LBP with movement. Rehabilitation Potential: Fair - Anticipated Interventions Patient/Client Instruction: Educate patient on: Condition, Plan of Care For the Purpose of:: To decrease pain, To increase oxygenation perfusion Therapeutic Exercise to Include: Strength training, Flexibilty training, In an aquatic setting, Passive ROM, Active ROM, Dynamic Lumbar Stabilization For the Purpose of:: To decrease pain, To increase ROM, To improve nutrient delivery to tissue, To improve muscle performance and motor function, To improve ability of physical actions for home/community/work/leisure, To improve gait and locomotor functions Thank you for the opportunity to evaluate your patient. For Medicare and Medicare HMO plans, please review the plan of care and approve it. It will need to be FAXED BACK to us at [phone] for Medicare purposes. Please let me know if there are questions or concerns regarding this plan of care. Physician Signature: Date: <Electronically signed by Mitchell CASEYT, OCS, CSCS> 07/05/17 0903 CC: Kaylee Ordaz DO; Faisal Matthews DO EBG Signed For Medicare only, by signing this I certify the plan of care. Physicians Signature Date ORTHOPEDIC VISIT Observed: 06/23/2017 Status: F Source: [place] RE[place] 2:31 PM [facility] [place] [facility] Orthopaedics AND Sports Medicine [address] [place] [id number] OFFICE VISIT Date of Service: 06/23/17 MR#: [id number] Acct: [id number] Name: CHRISTEL MEYER Rep #: [id number] : 1960 Provider: Kaylee Ordaz DO Age/Sex: 56/F Location: [facility] Status: Signed Intake Intake Visit Reasons: Bilat Knees Is patient in pain?: Yes Pain scale (1-10): 5 Allergies mushroom Allergy (Verified 05/25/17 14:01) Anaphylaxis Medications Calcium Carbonate/Vitamin D3 [Caltrate 600 Plus D3 Tablet] 1 ea PO DAILY 07/28/16 [History Confirmed 05/25/17] Iron Poly/Vit C [Niferex-150] 125 mg PO DAILYCM 07/28/16 [History Confirmed 05/25/17] Latanoprost 0.005% [Xalatan Opthalmic] 1 drp EACH EYE QHS 07/28/16 [History Confirmed 05/25/17] Multivitamins,Therapeutic [Multivitamin] 1 tab PO DAILY 07/28/16 [History Confirmed 05/25/17] Potassium Gluconate 595 mg PO DAILY 07/28/16 [History Confirmed 05/25/17] Pregabalin [Lyrica] 150 mg PO TID 07/28/16 [History Confirmed 05/25/17] Timolol 0.5% [Timoptic] 1 drp EACH EYE BID 07/28/16 [History Confirmed 05/25/17] Verapamil HCl [Verapamil ER] 120 mg PO DAILY 07/28/16 [History Confirmed 05/25/17] traMADol [Ultram (G)] 50 mg PO Q4H PRN PRN 07/28/16 [History Confirmed 05/25/17] levocetirizine 5 mg tablet 5 mg PO QHS PRN #30 tab 05/18/17 [Rx Confirmed 05/25/17] diclofenac sodium 75 mg tablet,delayed release 75 mg PO BID #60 tab 05/25/17 [Rx Confirmed 05/25/17] montelukast 10 mg tablet 10 mg PO QHS 05/25/17 [History Confirmed 05/25/17] PFSH Medical History Back problem (Chronic) Arthritis (Chronic) Family History Father Heart disease Son Asthma Mother Arthritis Aunt Diabetes Social History Smoking Status: Never smoker alcohol intake: never substance use type: does not use what type of physical activity do you participate in: none HPI Bilat Knees: Details: CHRISTEL MEYER is a 56 year old F here today for bilateral knee pain, equally. 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 She recently fell on the right knee and states she has the bruise, not visible today but tender to touch. She has locking of left knee on a few occasions and if she just waits and walks a little it will release. Stairs of difficult and has to do them one at a time. She also states there is a nerve type pain on occasion not related to a specific motion. She has been treated for knee pain in the past and has recent xrays but they are not here for review today. No recent formal PT. She sees Dr Bradford at [facility] for back injections that is causing some of the radicular pain in the lower leg. ROS Shreya Reports joint pain, Reports stiffness, Reports muscle weakness, Reports as per HPI Ortho Exam Right Knee Skin/Wound: Yes CDI Contralateral Normal: No Swelling: No Homans Sign: No Knee ROM: Yes ROM-Extension -20 to 0, Yes ROM-Flexion 0-140 Examination: Yes Med jt line tenderness, Yes Pain with flexion, Yes Crepitus, Yes Lat jt line tenderness Left Knee Skin/Wound: Yes CDI Contralateral Normal: No Swelling: No Homans Sign: No Knee ROM: Yes ROM-Extension -20 to 0, Yes ROM-Flexion 0-140 Examination: Yes Pain with flexion, Yes med jt line tenderness KNEE: neg heel strike Assessment AND Plan 1. Chronic pain of both knees M25.561; M25.562; G89.29 Plan Personally reviewed the patient's medical history, medications, surgeries and recent exams if available. X-rays were reviewed. There is no obvious fracture, dislocation, or lucency noted, mild OA noted. Educated the patient on the anatomy of the knee and etiology of her pain, she has lower leg swelling unrelated to orthopedic issue and she may benefit from compression socks that her pcp also recommended, we encouraged her to follow up with pcp about the swelling. She has med jt line pain and likely a degenerative meniscus tear of bilateral knees. Her treatment options are steroid injections, PT or do nothing. Gave script for PT today, if that fails we can try injections. Follow up in 3-4 months or sooner if pain, swelling, numbness or associated symptoms, or concerns develop. All questions answered. Patient in agreement of plan. Orders Orders: Coding Level of Care Code Off vis,new,level 3 Diagnoses Chronic pain of both knees M25.561; M25.562; G89.29 Chronicity: chronic 06/23/17 1431 <Electronically signed by Kaylee Ordaz DO> Date Kaylee Ordaz DO Cosigner Signature: Date (if applicable) CC: KNEE 4 OR MORE Observed: 06/23/2017 Status: F Source: [place] VIEWS 1:08 PM [facility] REPOSITORY [facility] Imaging Services [address] [place] [address] Knee 4 or More Views MR#: [id number] Acct: [id number] Name: CHRISTEL MEYER Rep #: [id number] : 1960 F 56 From: Piero Sellers MD PCP: Faisal Matthews DO Status: REG CLI Study: Knee 4 or More Views Date of Exam: 06/23/17 Exam# [id number] Ordering Dr: Kaylee Ordaz DO STUDY: X-RAY - RIGHT KNEE REASON FOR EXAM: Bilateral knee pain. TECHNIQUE: 4 view(s) of the knee. COMPARISON: None. FINDINGS: Normal visualized distal femur. Normal visualized proximal tibia and fibula. Normal proximal tibiofibular articulation. Normal medial femorotibial compartment. Normal lateral femorotibial compartment. Normal patellofemoral articulation. There is a small enthesophyte at the superior pole of the patella. RAD/Knee 4 or More Views IMPRESSION: Small patellar enthesophyte. Electronically Signed: Piero Sellers MD at 14:50 EDT Tel , Service support , CC: Kaylee Ordaz DO; Faisal Matthews DO Title One Reading Teacher: Signed KNEE 4 OR MORE Observed: 06/23/2017 Status: F Source: [place] 1:08 PM [facility] REPOSITORY [facility] Imaging Services [address] [place] [address] Knee 4 or More Views MR#: [id number] Acct: [id number] Name: CHRISTEL MEYER Rep #: [id number] : 1960 F 56 From: Piero Sellers MD PCP: Faisal Matthews DO Status: REG CLI Study: Knee 4 or More Views Date of Exam: 06/23/17 Exam# [id number] Ordering Dr: Kaylee Ordaz DO STUDY: X-RAY - LEFT KNEE REASON FOR EXAM: Bilateral knee pain. TECHNIQUE: 4 view(s) of the knee. COMPARISON: None. FINDINGS: Normal visualized distal femur. Normal visualized proximal tibia and fibula. Normal proximal tibiofibular articulation. Normal medial femorotibial compartment. Normal lateral femorotibial compartment. There are small marginal osteophytes of the patella without joint space narrowing of the patellofemoral articulation. There is a small enthesophyte at the superior pole of the patella. RAD/Knee 4 or More Views IMPRESSION: Small marginal osteophytes of the patella. Small patellar enthesophyte. Electronically Signed: Piero Sellers MD at 14:51 EDT Tel , Service support , CC: Kaylee Ordaz DO; Faisal Matthews DO Title One Reading Teacher: Signed MRI LUMBAR SP W/O Observed: 06/10/2017 Status: F Source: [facility] 11:24 AM [facility] MRI LUMBAR SP W/O CONTRAST Ordering Physician: Ethan FIGUEROA [facility] 06/10/2017 11:23 AM MRI LUMBAR SPINE WITHOUT CONTRAST: Clinical Statement: Low back pain with bilateral lower extremity radiculopathy and numbness. Status post lifting injury at work in 2001. No prior lumbar spine surgery. Comparison: None TECHNIQUE: Multisequence multiplanar MRI of the cervical spine without contrast. FINDINGS: Five lumbar type vertebral bodies are considered, counting from the lowermost visible disk. The lowermost ribs are identified at the presumed T12 level based on this counting. Normal lumbar lordosis is noted. Minimal levocurvature of the lumbar spine is noted. There is a 5 mm grade 1 anterolisthesis of L4 on L5. Definite pars defects are not identified, however cannot be completely excluded. Vertebral body heights are well-maintained. Multilevel mild disk height loss and degenerative signal is noted. Marrow signal is within normal limits. Visualized spinal cord is normal in signal and morphology. The conus terminates at upper L1 level. Small amount of dependent edema is identified within the subcutaneous soft tissues of the lower back. Visualized soft tissues of the abdomen and pelvis are otherwise unremarkable. T11-T12: Small disk bulge with bilateral mild facet/ligamentous hypertrophy. No spinal canal stenosis. No significant neural foraminal stenosis. T12-L1: Mild facet arthrosis. No spinal canal or neural foraminal stenosis. L1-L2: Mild facet arthrosis. No spinal canal or significant neural foraminal stenosis. L2-L3: Mild facet hypertrophy and ligamentum flavum hypertrophy (right more than left). At most mild spinal canal stenosis is noted. No significant neural foraminal stenosis. L3-L4: Small disk bulge with bilateral moderate facet/ligamentous hypertrophy resulting in moderate to severe spinal canal stenosis and crowding of the nerve roots. No significant neural foraminal stenosis. L4-L5: There is unroofing of the disk with small disk bulge. Bilateral severe facet/ligamentum flavum hypertrophy. Severe spinal canal stenosis with significant crowding of the nerve roots. There is complete effacement of the CSF space at this level. No significant neural foraminal stenosis. L5-S1: Bilateral mild facet arthrosis. No spinal canal stenosis. Bilateral mild to moderate neural foraminal stenosis. IMPRESSION: 1. No acute cervical spine abnormality. 2. Overall moderate lumbar spondylosis secondary to multilevel degenerative disk disease, facet and ligamentum flavum hypertrophy. 3. Moderate to severe L3-L4 and severe L4-L5 spinal canal stenosis with crowding of the nerve roots. 4. Mild to moderate bilateral L5-S1 neural foraminal stenosis. 5. Approximately 5 mm grade 1 anterolisthesis of L4 on L5, likely on a degenerative bases. No obvious pars defect is identified, however cannot be complete excluded. ---- Electronic Signature on File ---- Signed By: Blayne Darnell MD [email or web address] Dictated: 06/10/2017 3:08 PM Signed: 06/10/2017 3:20 PM Reported By: BLAYNE DARNELL M.D. Signed By: BLAYNE DARNELL M.D. [place] MAMMOGRAM SCREENING Observed: 06/06/2017 Status: F Source: [facility] BILATERAL W/BARBARA 10:30 AM FOUNDATION REPOSITORY ORIGINAL FROM: [place] [id number] PROCEDURE FOR: CHRISTEL DoKevin [address] [place] [address] Home: PID#: [id number] Exam#: [id number] : 1960 Age: 56 TO: HEMANTH LUNA MD [address] [place] [address] [address] [place] [address] #[id number] DIGITAL SCREENING MAMMOGRAM 3D/2D WITH CAD WITH MEDIOLATERAL OBLIQUE CRANIOCAUDAL: 06/06/2017 Comparison is made to exams dated: 06/04/2016 mammogram and 02/12/2015 mammogram - [facility]. There are scattered fibroglandular elements in both breasts. Current study was also evaluated with a Computer Aided Detection (CAD) system. There is a benign calcification in the right breast. There also are benign densities in the right breast. No significant masses, calcifications, or other findings are seen in either breast. There has been no significant interval change. IMPRESSION: BENIGN There is no mammographic evidence of malignancy. A 1 year screening mammogram is recommended. I have personally reviewed the images of the examination and agree with the findings and interpretation. KIMBERLY DIAZ MD vfg,yz/penrad:06/06/2017 13:03:44 Brake Press Operator: LLOYD KAUFMAN (R)(M), [facility] letter sent: Normal BI-RADS 1&2 Mammogram BI-RADS: 2 Benign XR KNEE THREE VIEWS Observed: 06/02/2017 Status: F Source: [facility] 3:30 PM [facility] REPOSITORY ORIGINAL XR KNEE THREE VIEWS RIGHT CLINICAL STATEMENT: pain. COMPARISON: RIGHT knee radiograph 01/06/2017 FINDINGS: No acute fracture or dislocation is identified. No joint effusion is seen. There are very mild tricompartment degenerative changes. Enthesopathy is seen along the patella. IMPRESSION: No acute acute osseous abnormality. Very mild degenerative changes. Interpreted By: Yudy Shahid MD Preliminary Report By: Yudy Shahid MD Electronically Signed By: Yudy Shahid MD Dictated Date: 06/02/2017 5:04:06 PM Prelim Date: 06/02/2017 5:04:08 PM Sign Date: 06/02/2017 7:30:37 PM INTERNAL MEDICINE Observed: 05/25/2017 Status: F Source: [place] OFFICE VISIT 2:44 PM [facility] [place] [facility] [address] [place] [address] [place] [address] OFFICE VISIT Date of Service: 05/25/17 MR#: [id number] Acct: [id number] Name: CHRISTEL MEYER Rep #: [id number] : 1960 Provider: Faisal Matthews DO Age/Sex: 56/F Location: [facility] Status: Signed Intake Vital Signs05/25/17 Height 4 ft 11.5 in 05/25/17 Weight: 262 lb 05/25/17 Body Mass Index (BMI) 52.0 05/25/17 Blood Pressure 114/87 Intake Visit Reasons: NEW HANDICAP TAG/PAIN IN KNEES Chief Complaint: Pain in knees AND Handicapp sticker Allergies mushroom Allergy (Verified 05/25/17 14:01) Anaphylaxis Medications Calcium Carbonate/Vitamin D3 [Caltrate 600 Plus D3 Tablet] 1 ea PO DAILY 07/28/16 [History Confirmed 05/25/17] Iron Poly/Vit C [Niferex-150] 125 mg PO DAILYCM 07/28/16 [History Confirmed 05/25/17] Latanoprost 0.005% [Xalatan Opthalmic] 1 drp EACH EYE QHS 07/28/16 [History Confirmed 05/25/17] Multivitamins,Therapeutic [Multivitamin] 1 tab PO DAILY 07/28/16 [History Confirmed 05/25/17] Potassium Gluconate 595 mg PO DAILY 07/28/16 [History Confirmed 05/25/17] Pregabalin [Lyrica] 150 mg PO TID 07/28/16 [History Confirmed 05/25/17] Timolol 0.5% [Timoptic] 1 drp EACH EYE BID 07/28/16 [History Confirmed 05/25/17] Verapamil HCl [Verapamil ER] 120 mg PO DAILY 07/28/16 [History Confirmed 05/25/17] traMADol [Ultram (G)] 50 mg PO Q4H PRN PRN 07/28/16 [History Confirmed 05/25/17] levocetirizine 5 mg tablet 5 mg PO QHS PRN #30 tab 05/18/17 [Rx Confirmed 05/25/17] diclofenac sodium 75 mg tablet,delayed release 75 mg PO BID #60 tab 05/25/17 [Rx Confirmed 05/25/17] montelukast 10 mg tablet 10 mg PO QHS 05/25/17 [History Confirmed 05/25/17] PFSH Medical History Back problem (Chronic) Arthritis (Chronic) Family History Father Heart disease Son Asthma Mother Arthritis Aunt Diabetes Social History Smoking Status: Never smoker alcohol intake: never substance use type: does not use what type of physical activity do you participate in: none HPI HPI Chief Complaint: Pain in knees AND Handicapp sticker Details: CHRISTEL MEYER, is a 56 F who presents to the office today for a prescription for a handicap sticker as well as a complaint about her throat burning and also a redness in the right eye. Knee pain is some better than it use to be ROS Const Constitutional: No chills, fatigue, fever(s), frequent falls, malaise, weakness, sleep problems or change in appetite Eyes Eyes: No blurry vision, change in vision, double vision, discharge or visual disturbances ENT ENT: No abnormal hearing, ear pain, ear pressure, tinnitus or dizziness/vertigo Resp Respiratory: No cough, shortness of breath or wheezing Cardio Cardiology: Positive for chest pain at rest and chest pain with exertion; no shortness of breath, dyspnea on exertion, generalized swelling, irregular heart rhythm, lightheadedness, orthopnea, fast heart rate or palpitations Gastro GI: No abdominal pain, change in bowel habits, constipation, diarrhea, nausea/dyspepsia or vomiting Genitourinary-Female: No difficulty urinating, burning urination, painful urination, urinary incontinence, urinary frequency, urinary urgency, urinary hesitancy, urinary retention, Frequent nighttime urination/ nocturia, sexual problems, genital lesions, abnormal vaginal bleeding, pelvic pain, vaginal dryness, vaginal odor or Vaginal Itching Musc Musculoskeletal: Positive for back pain, numbness (Legs AND feet), tingling (Legs AND Feet) and muscle cramps; no joint pain, joint swelling, limited range of motion or muscle weakness Skin Skin: No change in skin color, itching, rash or wounds Neuro Neurology: Positive for numbness (Legs AND feet) and tingling (Legs AND Feet); no frequent falls, weakness, abnormal hearing, unsteady gait/balance, dizziness, loss of vision, memory loss or visual disturbances Psych Psychiatric: No memory loss, No anxiety, No change in appetite, No depression, No Thoughts of harming yourself/Others Endo Endocrine: No fatigue, increased thirst/drinking, increased hunger or increased urination Aller/Imm Allergy/Immunologic: No wheezing, itchy eyes or seasonal allergy symptoms Charles/Lymp Hematologic/Lymphatic: No easy bleeding, easy bruising or enlarged lymph nodes Exam Const General: no acute distress Nutritional Appearance: overweight Orientation: oriented x3 Limitations: physical limitations (She needs a cane to move around), other limitations (She is deaf) [facility] Mouth: oral mucosae normal Throat: posterior oropharynx normal Eyes Conjunctivae: conjunctival abnormality right pterygium Chest Chest palpation AND inspection: normal inspection of the chest Resp Effort AND Inspection: normal respiratory effort Auscultation: Bilateral: Clear to Auscultation Cardio Palpation: normal PMI Rate: regular rate Rhythm: regular rhythm Heart Sounds: S1 normal Musc Musculoskeletal: No muscle weakness Extrem General: no pedal edema, normal to inspection Assessment AND Plan Problems 1. 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 2. Bilateral deafness H91.93 Patient has congenital deafness but communication through lip reading is quite good. 3. 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 No acute fracture or dislocation is identified. There is no radiopaque foreign body. Bilateral tubal ligation clips are seen. Moderate degenerative changes are seen inferiorly within the sacroiliac joint and bilaterally within the hip joints. There are degenerative changes within the lower lumbar spine. IMPRESSION: No acute fracture or dislocation. Interpreted By: Simona Nunez MD Preliminary Report By: Simona Nunez MD Electronically Signed By: Simona Nunez MD Dictated Date: 04/13/2017 9:06:17 AM Prelim Date: 04/13/2017 9:06:17 AM Sign Date: 04/13/2017 9:06:57 AM XR SPINE LUMBAR Observed: 04/12/2017 Status: F Source: [place] AP/LAT 4:06 PM [facility] REPOSITORY ORIGINAL XR SPINE LUMBAR AP/LAT CLINICAL STATEMENT: Chronic low back pain COMPARISON: None FINDINGS: 5 lumbar type vertebral bodies are visualized. There is approximately 5 mm of anterolisthesis of L4 on L5. The vertebral body alignment is otherwise maintained. The vertebral body heights are maintained . There is moderate to severe facet arthropathy within the lower lumbar spine. Moderate degenerative changes seen at L4-5 and L5-S1. IMPRESSION: Degenerative changes with grade 1 anterolisthesis of L4 on L5. Interpreted By: Simona Nunez MD Preliminary Report By: Simona Nunez MD Electronically Signed By: Simona Nunez MD Dictated Date: 04/13/2017 9:03:36 AM Prelim Date: 04/13/2017 9:03:36 AM Sign Date: 04/13/2017 9:04:59 AM ALLERGIES ALLERGIES DATE TYPE / CODE NAME / CODE REACTION SEVERITY SOURCE 01/11/2018 Drug mushroom/F00 Anaphylaxis Unknown [place] Allergy/014578592(S 0829456(RXNO Formerly [facility] NOMED [place]) ) Hospital Repository 12/27/2017 Miscellaneous [place] Unknown Unknown [place] Allergy/417436782(S [facility] NOMED [place]) Hospital Repository ENCOUNTERS ENCOUNTERS ADMIT/DISCHARGE ACCOUNT NUMBER ADMITTING ENCOUNTER LOCATION SOURCE CLASS 01/11/2018/01/12/20 [id number] Ambulatory BMSBuilding: [place] [facility] Repository 01/05/2018 [id number] Ambulatory BMSBuilding: [place] [facility]MS.[facility] Repository 01/03/2018 [id number] Ambulatory [facility] ding:CT Repository 12/27/2017/12/28/19 [id number] Ambulatory BMSBuilding: [place] 18 BMS.[facility] Repository 12/19/2017 [id number] Ambulatory [facility] ding:US Repository 12/15/2017 [id number] Ambulatory [facility] ding:MTRAD Repository 12/06/2017/12/07/19 [id number] Ambulatory BMSBuilding: [place] 18 [facility]MS.[facility] Repository 10/24/2017 [id number] Ambulatory [facility] ding:MASS Repository 10/20/2017 [id number] Ambulatory [facility] [place] ng:H.PM 08/05/2017/08/06/19 [id number] Ambulatory [address] ding:PT Repository 07/20/2017 [id number] Ambulatory [facility] [place] ng:H.PM 06/23/2017 [id number] Ambulatory [facility] ding:HPRAD Repository 06/23/2017/06/24/19 [id number] Ambulatory BMSBuilding: [place] 18 BMS.[facility] Repository 06/10/2017 [id number] Ambulatory [facility] [place] ng:H.MRI 06/06/2017/06/07/19 [id number] Ambulatory HEIDI Heidi [address] [place] [address] ding:[facility] Repository 06/02/2017/06/03/19 [id number] Ambulatory HEIDI Heidi [address] [place] [address] ding:[facility] Repository 05/27/2017 [id number] Ambulatory [facility] [place] ng:H.PM 05/25/2017/05/26/19 [id number] Ambulatory BMSBuilding: [place] 18 BMS.[facility] Repository 04/15/2017/04/16/19 [id number] Ambulatory HEIDI Heidi[address] ding:[facility] Repository 04/12/2017/04/13/19 [id number] Ambulatory HEIDI Heidi [address] [place] [address] ding:[facility] Repository 03/30/2017 [id number] Ambulatory [facility] [place] ng:H.PM 03/02/2017/03/02/19 [id number] Ambulatory HEIDI He[address] ding:[facility] Repository PAYERS PAYERS ENCOUNTER GUARANTOR PAYER SUBSCRIBER SOURCE 01/11/2018 CHRISTEL S [id number] Primary CHRISTEL S TRACYDOB: [place] COLLETTE MARTINEZWOOREGINALDO, Insurance:MEDICARE [id number] Formerly [facility] [address]20[address]Wwv: PART A [facility] Number: Repository () [id number] Date:2018-01-06 01/11/2018 Secondary CHRISTEL S TRACYDOB: [place] Insurance:[facility] [id number] Formerly [facility] Number: [facility] [id number] Repository Date: [place], [place] [address]TO: 01/11/2018 Tertiary NOT GIVENUNK [place] Insurance:SELF PAY [facility] Number: Effective Repository Date:2018-01-06 01/05/2018 CHRISTEL S [id number] Primary CHRISTEL S TRACYDOB: [place], Insurance:MEDICARE [id number] [address]Rbn: PART A [facility] Number: Repository () [id number] Date:2018-01-05 01/05/2018 Secondary CHRISTEL S TRACYDOB: [place] Insurance:NALCPolicy [id number] Community Number: Hospital [id number] Repository Date: [place], [place] [address]RA: 01/05/2018 Tertiary NOT GIVENUNK [place] Insurance:SELF PAY [facility] Number: Effective Repository Date:2018-01-05 01/03/2018 WENDY T [id number] Primary CHRISTEL S TRACYDOB: [place], Insurance:MEDICARE [id number] Health [address]Rge: PART A [facility] Number: Repository () [id number] Date:2017-12-27 01/03/2018 Secondary CHRISTEL S TRACYDOB: [place] Insurance:NALCPolicy [id number] Community Number: Hospital [id number] Repository Date: [place], [place] [address]ZH: 01/03/2018 Tertiary NOT GIVENUNK [place] Insurance:SELF PAY [facility] Number: Effective Repository Date:2017-12-27 12/27/2017 CHRISTEL S [id number] Primary CHRISTEL S TRACYDOB: [place], Insurance:MEDICARE [id number] [facility]ly [facility] [address]Jjk: PART A [facility] Number: Repository () [id number] Date:2017-12-21 12/27/2017 Secondary CHRISTEL S TRACYDOB: [place] Insurance:NALCPolicy [id number] Community Number: [facility] [id number] Repository Date: [place], [place] [address]JK: 12/27/2017 Tertiary NOT GIVENUNK [place] Insurance:SELF PAY [facility] Number: Effective Repository Date:2017-12-21 12/19/2017 WENDY T [id number] Primary CHRISTEL S TRACYDOB: [place], Insurance:MEDICARE [id number] [facility] [place] [address]Aod: PART A [facility] Number: Repository () [id number] Date:2017-12-07 12/19/2017 Secondary CHRISTEL S TRACYDOB: [place] Insurance:NALCPolicy [id number] Community Number: Hospital [id number] Repository Date: [place], [place] [address]BJ: 12/19/2017 Tertiary NOT GIVENUNK [place] Insurance:SELF PAY [facility] Number: Effective Repository Date:2017-12-07 12/15/2017 WENDY T [id number] Primary CHRISTEL S TRACYDOB: [place], Insurance:MEDICARE [id number] [facility] [place] [address]Nak: PART A [facility] Number: Repository () [id number] Date:2017-12-15 12/15/2017 Secondary CHRISTEL S TRACYDOB: [place] Insurance:NALCPolicy [id number] Community Number: Hospital [id number] Repository Date: [place], [place] [address]WU: 12/15/2017 Tertiary NOT GIVENUNK [place] Insurance:SELF PAY [facility] Number: Effective Repository Date:2017-12-15 12/06/2017 WENDY T [id number] Primary CHRISTEL S TRACYDOB: [place]E [place], Insurance:MEDICARE [id number] Health [address]Fno: PART A [facility] Number: Repository () [id number] Date:2017-10-17 12/06/2017 Secondary CHRISTEL S TRACYDOB: [place] Insurance:[facility] [id number] [facility] Number: Hospital [id number] Repository Date: [place], [place] [address]TX: 12/06/2017 Tertiary NOT GIVENUNK [place] Insurance:SELF PAY [facility] Number: Effective Repository Date:2017-10-17 10/24/2017 WENDY T [id number] Primary NOT GIVENUNK [place] COLLETTE YENYKIKI, Insurance:SELF PAY [facility]ly [facility] [address]Wik: [facility] Number: Effective Repository (HP) Date:2017-04-27 10/20/2017 CHRISTEL [id number] Primary CHRISTEL S TRACYUNK [facility] COLLTETE SLIMTARA, Insurance[place] [address]Yxb: icy Number: Repository [id number] (HP) Date:2008-12-08[address] CODE [id number], [place] [address]PU: 10/20/2017 Secondary CHRISTEL TRACYUNK [facility] Insurance:[facility] Benefit Repository PlanPolicy Number: [id number] Date:8883-94-03XX [address]KKLCFLMAXAP, [place] [address]PX: 08/05/2017 WENDY T [id number] Primary CHRISTEL S TRACYDOB: [place] ISELAREGINALDO, Insurance:MEDICARE [id number] Health [address]Lkl: PART A [facility] Number: Repository () [id number] Date:2008-12-08 08/05/2017 Secondary CHRISTEL S TRACYDOB: [place] [facility] [id number] Community Number: Hospital [id number] Repository Date: [place], [place] [address]XE: 08/05/2017 Tertiary NOT GIVENUNK [place] Insurance:SELF PAY [facility] Number: Effective Repository Date:2017-06-23 07/20/2017 CHRISTEL [id number] Primary [facility] [place] RDWSUKHWINDERSTER, Insurance:[place] [address]Smp: icy Number: Repository [id number] (HP) Date:2008-12-08P [address] CODE [id number], [place] [address]FZ: 07/20/2017 Secondary CHRISTEL TRACYUNK [facility] Insurance:[employer] [facility] Health Benefit Repository PlanPolicy Number: [id number] Date:4954-12-11JQ [address]IGEUUKJOABF, [place] [address]EK: 06/23/2017 WENDY T [id number] Primary CHRISTEL S TRACYDOB: [place] RDWSUKHWINDERSTER, Insurance:MEDICARE [id number] Health [address]Zvq: PART A [facility] Number: Repository () [id number] Date:2017-06-23 06/23/2017 Secondary CHRISTEL S TRACYDOB: [place] [facility] [id number] Community Number: Hospital [id number] Repository Date: [place], [place] [address]OI: 06/23/2017 Tertiary NOT GIVENUNK [place] Insurance:SELF PAY [facility] Number: Effective Repository Date:2017-06-23 06/23/2017 WENDY T [id number] Primary CHRISTEL S TRACYDOB: [place] MURD[place] RDKARISTER, Insurance:MEDICARE [id number] [facility] [place] [address]Qcz: PART A [facility] Number: Repository () [id number] Date:2017-06-02 06/23/2017 Secondary CHRISTEL S TRACYDOB: [place] Insurance:NALCPolicy [id number] [facility] Number: Hospital [id number] Repository Date: [place], [place] [address]MP: 06/23/2017 Tertiary NOT GIVENUNK [place] Insurance:SELF PAY [facility]ly [facility] INSURANCEPolicy Hospital Number: Effective Repository Date:2017-06-17 06/10/2017 CHRISTEL [id number] Primary CHRISTEL S TRACYUNK [facility], Insurance:[place] [address]Adv: icy Number: Repository [id number] () Date:2008-12-08 [address] CODE AR632PPCVYEQARINGGOLD, [place] [address]TA: 06/10/2017 Secondary CHRISTEL TRACYUNK [facility] Insurance:C[facility] [facility] Health Benefit Repository PlanPolicy Number: [id number] Date:1587-79-17[address]EKFQKCMLVBS, [place] [address]DX: 06/06/2017 CHRISTEL S TRACYDOB: Primary CHRISTEL S TRACYDOB: [place] [employer] [id number] Insurance:MEDICARE [id number] [facility], PART BPolicy Number: 7 [facility] [place]ository [place] [address]Oam: [id number] [place], [place] Date:2017-04-1501463Woy: [phone] ( [phone] [phone] Name:LUZ ()Tel: (000) Administrators LLCPO 000-0000 () [address] [address]Akxazuxwb, [place] [address]LL: 06/06/2017 Secondary CHRISTEL S TRACYDOB: [facility] Insurance:C[facility] [id number] [facility] [id number] Number: 7 [facility] Repository [id number] [place], [place] Date:2017-04-15Tel: ([phone]) [phone] [phone] Name:[address] (HP)Tel: (000) [address]Hewtvozuvne, [place] 000-0000 (WP) [address]SP: 06/02/2017 CHRISTEL S TRACYDOB: Primary CHRISTEL S TRACYDOB: [facility] Insurance:MEDICARE [id number] [facility], PART BPolicy Number: 7 [facility] Repository [place] [address]Cdh: [id number] [place], [place] Date:2017-06-02Tel: (473) (BO) [id number] [phone] Name:PCGS ()Tel: (000) Administrators LLCPO 000-0000 (WP) [address] [place] [address]PW: 06/02/2017 Secondary CHRISTEL S TRACYDOB: [facility] Insurance:CIGNA [facility] [id number] [facility] [id number] Number: 7 [facility] Repository [id number] [place], [place] Date:2017-06-0249469Rof: [phone] [phone] Name:[address] ()Tel: (000) 5312[address]Vppqrbfawfd, [place] 000-0000 (WP) [address]IO: 05/27/2017 CHRISTEL [id number] Primary CHRISTEL S TRACYUNK [facility], Insurance:[place] [address]Rls: icy Number: Repository [id number] () Date:2008-12-08 [address]MZQN CODE ND089ZJKMAEUK, [place] [address]RK: 05/27/2017 Secondary CHRISTEL TRACYUNK [facility] Insurance[facility] Benefit Repository PlanPolicy Number: [id number] Date:1395-42-10IW [address]WCRUOIQYFZZ, [place] [address]SH: 05/25/2017 WENDY Carr [id number] Primary CHRISTEL S TRACYDOB: [place] COLLETTE GILLIAN, Insurance:MEDICARE [id number] [facility] [address]Fpg: PART A [facility] Number: Repository () [id number] Date:2017-04-29 05/25/2017 Secondary CHRISTEL S TRACYDOB: [place] Insurance:[facility] [id number] [facility] Number: Hospital [id number] Repository Date: [place], [place] [address]VI: 05/25/2017 Tertiary NOT GIVENUNK [place] Insurance:SELF PAY [facility] Number: Effective Repository Date:2017-05-24 04/15/2017 CHRISTEL S TRACYDOB: Primary CHRISTEL S TRACYDOB: [facility] [id number] Insurance:MEDICARE [id number] [place], [place] [address]OY ZaidKIKI, [facility] Number: 7 [facility] [address]Twp: [id number] [place], [place] Date:2017-04-1254518Yqt: (330) () [phone] [phone] Name:[facility] ()Tel: ([phone]) Yvzbtwlbhmuufs LLCLG [phone] () [address]Fkrjzcvja, [place]ZZ[place] [address]OP: 04/15/2017 Secondary CHRISTEL S TRACYDOB: [facility] Insurance:CIGNA [facility] [id number] [facility] [id number] Number: 7 [facility] [id number] [place], [place] Date:2017-04-12 118[address]Tis: [phone] [phone] Name:[address] ()Tel: 000) 6648[address]EzykhoygihwLAMONI, [place] 000-0000 (WP) [address]BU: 04/12/2017 CHRISTEL S TRACYDOB: Primary CHRISTEL S TRACYDOB: [facility] [id number] Insurance:MEDICARE [id number] [facility], [facility] BPolicy Number: 7 [facility] [place] Repository [place] [address]Lbx: [id number] [place], [place] Date:2017-04-12Tel: (330) (HP) [phone] [phone] Name:PCGS ()Tel: (000) Administrators LLCPO 000-0000 (WP) [address] [address]Azacssaaa, [place] [address]SL: 04/12/2017 Secondary CHRISTEL S TRACYDOB: [facility] [id number] [facility] [id number] Number: 7 [facility] Repository [id number] [place], [place] Date:2017-04-1219350Una: 330 [id number] [phone] Name:[address] ()Tel: (000) 685[address]Eijavbxivvp, [place] 000-0000 (WP) [address]UE: 03/30/2017 CHRISTEL [id number] Primary CHRISTEL TRACYUNK [facility], Insurance:[place] [address]Wol: icy Number: Repository [id number] (HP) Date:2008-12-08 [address]UU[address] [place]468DCZTITOP, [place] [address]RW: 03/30/2017 Secondary CHRISTEL TRACYUNK [facility] Insurance:[facility] Health Benefit Repository PlanPolicy Number: [id number] Date:5045-89-64FB [address]QIWQCPCQIBS, [place] [address]XV: 03/02/2017 CHRISTEL S TRACYDOB: Primary CHRISTEL S TRACYDOB: [facility] [id number] Insurance:MEDICARE [id number] [facility] COLLETTE [place] [facility] BPolicy Number: 7 [facility] [place] Repository [place] [address]Peu: [id number] [place] Date:2017-02-2316106Uny: (330) (ES) [phone] [phone] Name:DANIELS ()Tel: (000) Administrators LLCPO 000-0000 (WP) [address]Ewgwn[place]our, [place] [address]AD: 03/02/2017 Secondary CHRISTEL S TRACYDOB: [facility] Insurance:CIGNA [facility] [id number] [facility] [id number] Number: 7 [facility] Repository [id number] [facility] [place] Date:2017-02-2364013Uxk: ([phone]) [phone] [phone] Name:[address] (HP)Tel: (000) 497538Joxfhgdmuvb, [place] 000-0000 (WP) [address]EM:
== END ==
PROVIDERS: Family Provider Family Medicine; PCP Family Medicine; Referring Provider Surgery; Visit Provider Surgery
DX: R10.31 Right lower quadrant pain (principal); G89.29 Other chronic pain
CPT/HCPCS: 74176

== ENCOUNTER → 2018-04-26 16:33 | Outpatient (CLI) | payer MEDICARE, OTHER, SELFPAY ==
[2018-04-26 14:46] VITALS: BMI 50.2
--- NOTE | 2018-04-26 14:50 | EMB_PTH ---
PATIENT: CHRISTEL MEYER LOC: [facility] U#:[id number] AGE/SX: 64/F ROOM: RE04/26/[address]: GERARD Trammell : 1960 BED: DIS: SPEC #: [id number] RECD: 04/26/18 16:31 STATUS: EZEQUIEL NATAN #: [id number] TODD: 04/26/18 14:[address]: Sherrie Mccann NP DEPT: SURGICAL PATHOLOGY RECD BY: Wilbur Sparks ENTERED: 04/27/18 10:29 SP TYPE: ENDOM BX/C SHIV DR: Dr. Lasha Matthews, Tissues: Endometrium, NOS Procedures: Surgery Specimen Level IV HEADER OPERATION: Endometrial biopsy PRE-OP DIAGNOSIS: Abnormal uterine bleeding TISSUE SUBMITTED: Endometrial lining MICROSCOPIC DIAGNOSIS Endometrium, biopsy: Scant strips of benign superficial endometrium. AM:amanda 04/28/18 MICROSCOPIC DESCRIPTION Slides are reviewed. GROSS DESCRIPTION Received is one container labeled with the patient's name and not further designated. The specimen consists of multiple fragments of hemorrhagic soft tissue that in aggregate measure 1.5 x 1 x 0.1 cm. The specimen is totally submitted in one cassette. / SJ:amanda 04/27/18 TC:5 CPT: 44928
[2018-04-29 17:15] LABS: HPV APTIMA, High Risk Negative (Negative)
== END ==
PROVIDERS: Family Provider Family Medicine; PCP Family Medicine; Referring Provider Nurse Practitioner Women's Health; Visit Provider Nurse Practitioner Women's Health
DX: Z12.4 Encounter for screening for malignant neoplasm of cervix (principal); N93.9 Abnormal uterine and vaginal bleeding, unspecified
CPT/HCPCS: 87624; 88175; 88305; G0145

== ENCOUNTER → 2018-04-28 13:17 | Outpatient (CLI) | payer MEDICARE, OTHER, SELFPAY ==
[2018-04-26 14:46] VITALS: BMI 50.2
--- NOTE | 2018-04-28 13:19 | US_ITS ---
STUDY: ULTRASOUND OF THE FEMALE PELVIS - COMPLETE REASON FOR EXAM: Female, 57 years old. Postmenopausal bleeding. TECHNIQUE: Transabdominal and Transvaginal TECHNICAL QUALITY: Adequate. COMPARISON: CT of the abdomen and pelvis, January 03, 2018. FINDINGS: The uterus is anteverted and is in a midline position. The uterus measures 7.9 x 5.2 x 4.2 cm. Normal uterine cervix. The endometrium measures 13 mm in thickness, and is hyperechoic. There is no demonstrated endometrial mass. There are multiple fibroids. In the anterior lower uterine segment there is a 1.8 x 1.5 x 1.9 cm hypoechoic fibroid . In the right fundus there is a hyperechoic 1.6 x 1.1 x 1.3 cm fibroid. In the left fundus there is a 1.0 x 1.2 x 0.8 cm hypoechoic fibroid. I.U.D. - The patient does not have an I.U.D. The right ovary is not visualized There is no visualized right adnexal mass or complex lesion. The left ovary is not visualized There is no visualized left adnexal mass or complex lesion. There is no fluid in the cul-de-sac. The pre void volume of the bladder was 164 ml. The urinary bladder is grossly normal. Polycystic ovary disease: No. US/Transvaginal Non- IMPRESSION: 1. Thickened endometrium for the patient's age. There is no focal mass. 2. Multiple uterine fibroids. 3. Nonvisualization of the ovaries. Electronically Signed: Gregorio Abdullahi DO at 9:04 EDT Tel [phone], Service support ,
--- NOTE | 2018-04-28 13:19 | US_ITS ---
STUDY: ULTRASOUND OF THE FEMALE PELVIS - COMPLETE REASON FOR EXAM: Female, 57 years old. Postmenopausal bleeding. TECHNIQUE: Transabdominal and Transvaginal TECHNICAL QUALITY: Adequate. COMPARISON: CT of the abdomen and pelvis, January 03, 2018. FINDINGS: The uterus is anteverted and is in a midline position. The uterus measures 7.9 x 5.2 x 4.2 cm. Normal uterine cervix. The endometrium measures 13 mm in thickness, and is hyperechoic. There is no demonstrated endometrial mass. There are multiple fibroids. In the anterior lower uterine segment there is a 1.8 x 1.5 x 1.9 cm hypoechoic fibroid . In the right fundus there is a hyperechoic 1.6 x 1.1 x 1.3 cm fibroid. In the left fundus there is a 1.0 x 1.2 x 0.8 cm hypoechoic fibroid. I.U.D. - The patient does not have an I.U.D. The right ovary is not visualized There is no visualized right adnexal mass or complex lesion. The left ovary is not visualized There is no visualized left adnexal mass or complex lesion. There is no fluid in the cul-de-sac. The pre void volume of the bladder was 164 ml. The urinary bladder is grossly normal. Polycystic ovary disease: No. US/Pelvic (Non ) IMPRESSION: 1. Thickened endometrium for the patient's age. There is no focal mass. 2. Multiple uterine fibroids. 3. Nonvisualization of the ovaries. Electronically Signed: Gregorio Abdullahi DO at 9:04 EDT Tel [phone], Service support ,
== END ==
PROVIDERS: Family Provider Family Medicine; PCP Family Medicine; Referring Provider Nurse Practitioner Women's Health; Visit Provider Nurse Practitioner Women's Health
DX: N95.0 Postmenopausal bleeding (principal)
CPT/HCPCS: 76830; 76856

== ENCOUNTER → 2018-06-01 | Outpatient (CLI) | payer MEDICARE, OTHER, SELFPAY ==
[2018-03-07 11:24] VITALS: BMI 50.2
[2018-05-22 13:03] VITALS: BMI 50.2
--- NOTE | 2018-06-01 14:40 | BI_ITS ---
MAMMOGRAPHY - BILATERAL SCREENING 3-D TOMOSYNTHESIS REASON FOR EXAM: Female, 57 years old. Bilateral Screening 3-D tomosynthesis PERTINENT HISTORY: No significant family history. TECHNIQUE: 2-D mammograms and 3-D Tomosynthesis of the breast (s) were performed. CAD was performed. COMPARISON: 2017 FINDINGS: The breast composition is composed of scattered fibroglandular density. Scattered benign calcifications are seen. No dense spiculated masses or suspicious microcalcifications are identified. No architectural distortion is identified. There is no skin thickening or retraction. There are well-defined subcentimeter nodules in the right breast, likely lymph nodes. There has been no significant change since the prior study. BI/SCREEN MAMM (CAD) W/BARBARA BILAT IMPRESSION: No mammographic signs of malignancy. Routine yearly mammograms recommended. ASSESSMENT CATEGORY: BIRADS Category 2: Benign. A letter regarding these results will be sent to the patient by the facility within 30 days. FOLLOW UP RECOMMENDATION: Yearly follow up mammogram recommended. (A) Approximately 10% of breast cancers are not detected by mammography. A normal mammogram should not delay biopsy of a clinically suspicious abnormality. Electronically Signed: Joseluis Dyer MD at 8:20 EDT , Service support ,
== END | disposition home or self-care (01) ==
LOC: OPBI 14:39
PROVIDERS: Family Provider Family Medicine; PCP Family Medicine; Referring Provider Family Medicine; Visit Provider Family Medicine
DX: Z12.31 Encounter for screening mammogram for malignant neoplasm of breast (principal)
CPT/HCPCS: 77063; 77067

== ENCOUNTER → 2018-06-02 | Outpatient (CLI) | payer MEDICARE, OTHER, SELFPAY ==
[2018-06-02 11:45] VITALS: BMI 50.2
== END | disposition home or self-care (01) ==
LOC: BIMLAB 11:46
PROVIDERS: Family Provider Family Medicine; PCP Family Medicine; Visit Provider Nurse Practitioner Family
DX: J02.9 Acute pharyngitis, unspecified (principal)
CPT/HCPCS: 87070

== ENCOUNTER 2018-07-06 08:40 | Day surgery (SDC) | payer MEDICARE, OTHER, SELFPAY ==
[2018-04-26 14:46] VITALS: BMI 50.2
[2018-06-02 11:45] VITALS: BMI 50.2
--- NOTE | 2018-07-04 20:28 | HP.PCM_ITS ---
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 (7) Deaf Status: Chronic Qualifiers: Comment: Patient has congenital deafness. (8) Deaf Status: Chronic History and Physical Date of Admission: 07/06/18 Vital Signs 05/22/18 Height 4 ft 11 in 05/22/18 Weight: 259 lb 05/22/18 Body Mass Index (BMI) 52.3 Intake Visit Reasons: surgical consult- need shawn freelance interpreter/translator Machine Repairer Required: Yes Is patient in pain?: No Allergies mushroom Allergy (Verified 05/22/18 12:47) Anaphylaxis [place] Adverse Reaction (Unknown, Uncoded 12/27/17 09:38) Unknown Medications Calcium Carbonate/Vitamin D3 [Caltrate 600 Plus D3 Tablet] 1 ea PO DAILY 07/28/16 [History Confirmed 05/22/18] Iron Poly/Vit C [Niferex-150] 125 mg PO DAILYCM 07/28/16 [History Confirmed 05/22/18] Latanoprost 0.005% [Xalatan Opthalmic] 1 drp EACH EYE QHS 07/28/16 [History Confirmed 05/22/18] Multivitamins,Therapeutic [Multivitamin] 1 tab PO DAILY 07/28/16 [History Confirmed 05/22/18] Pregabalin [Lyrica] 150 mg PO TID 07/28/16 [History Confirmed 05/22/18] Timolol 0.5% [Timoptic] 1 drp EACH EYE BID 07/28/16 [History Confirmed 05/22/18] Verapamil HCl [Verapamil ER] 120 mg PO DAILY 07/28/16 [History Confirmed 05/22/18] traMADol [Ultram (G)] 50 mg PO Q4H PRN PRN 07/28/16 [History Confirmed 05/22/18] levocetirizine 5 mg tablet 5 mg PO QHS PRN #30 tab 05/18/17 [Rx Confirmed 05/22/18] tizanidine 4 mg capsule 4 mg PO TID PRN 03/07/18 [History Confirmed 05/22/18] diclofenac sodium 75 mg tablet,delayed release 75 mg PO ONCE tab 05/01/18 [History Confirmed 05/22/18] montelukast 10 mg tablet 10 mg PO QHS #30 tab 05/15/18 [Rx Confirmed 05/22/18] Is last menstrual period known: No Post menopausal: Yes Patient : No : No PFSH Medical History Deaf (Chronic) Amyloid pterygium of right eye (Acute) Deaf (Chronic) DJD (degenerative joint disease) of knee (Chronic) Back problem (Chronic) Arthritis (Chronic) Surgical History Hx of toe surgery (Acute) History of appendectomy (Acute) Family History Father Heart disease Son Asthma Mother Arthritis Aunt Diabetes Social History Smoking Status: Never smoker second hand exposure: No alcohol intake: never substance use type: does not use caffeine: Yes what type of physical activity do you participate in: none seatbelt use: always HPI surgical consult- need shawn freelance interpreter/translator: Details: CHRISTEL MEYER is a 57 year old who presents for postmenopausal bleeding since march. she has been postmenopausal since age 45. she has had intermittent bleeding with some days not and some bleeding. she denies any dizziness or lightheadedness. Pregancy History 4 Elective abortions Hx Para 3 Spontaneous abortions Hx # Term Pregnancies Ectopic pregnancies Hx # Pregnancies Multiple births # of living children 3 ROS Const Constitutional: Denies fatigue, fever(s), headache(s), increased appetite, poor appetite, weight gain or weight loss Cardio Card: Reports system reviewed and no additional complaints, except as docu Resp Resp: Reports system reviewed and no additional complaints, except as docu GI GI: Reports system reviewed and no additional complaints, except as docu : Reports as per HPI; denies difficulty urinating, painful urination, blood in urine, pelvic pain, urinary frequency, urinary incontinence, urinary hesitancy, urinary urgency, vaginal discharge, vaginal dryness, vaginal odor, vaginal itching or other Exam Const General: cooperative, healthy appearing, comfortable, no acute distress, well developed Nutritional Appearance: average body habitus Orientation: alert HENWA Head: normal to inspection, normocephalic Ears: hearing grossly normal bilaterally, external ears normal Nose: external nose normal, nares normal Face and sinus: normal facial exam Neck Neck: normal visual inspection, no lymphadenopathy, trachea midline Thyroid: thyroid normal Resp Effort & Inspection: normal respiratory effort Musc Other: gross motor intact no deficits, full bilateral strength Skin General: no rashes or lesions noted Neuro Motor: muscle tone normal throughout Assessment & Plan Problems 1. Postmenopausal bleeding N95.0 Plan discussed d and c hysteroscopy for thickened endometrium, normal EMB. Coding Level of Care Code Off vis,est,level 3 Diagnoses Postmenopausal bleeding N95.0 UPDATE- I have seen the patient and performed any clinically relevant updates to the history and physical exam. Betty Parra MD
[2018-07-06 09:11] VITALS: BP 118/58; PULSE 73; RESP 16; TEMP 36.2; O2SAT 98; BMI 51.6
[2018-07-06 09:16] LABS: Hematocrit 42.9 % (37-47); Hemoglobin 14.6 g/dl (12.0-15.0); Mean Corpuscular Hgb 31.8 pg (27.0-32.0); Mean Corpuscular Volume 93.5 fL (81-99); Mean Platelet Vol. 9.6 fl (6.2-12.0); Platelet Count 257 K/mm3 (150-450); RBC Distribution Width SD 44.4 fl (35.1-43.9); Red Blood Count 4.59 M/mm3 (4.2-5.4); White Blood Count 10.1 K/mm3 (4.4-11.0)
[2018-07-06 09:17] LABS: Scan Indicated on CBC? Y/N NO
--- NOTE | 2018-07-06 10:10 | EMB_PTH ---
PATIENT: CHRISTEL MEYER [place] [facility] [place][id number] AGE/SX: 57/F ROOM: RE07/06/[address]: Dr. Betty Parra MD : 1960 BED: DIS: 07/06/2018 SPEC #: [id number] RECD: 07/06/18 13:42 STATUS: EZEQUIEL RELito #: [id number] TODD: 07/06/18 10:[address]: Betty Parra DEPT: SURGICAL PATHOLOGY RECD BY: Wilbur Sparks ENTERED: 07/06/18 14:31 SP TYPE: ENDOM BX/C OTHR DR: Dr. Lasha Matthews, DO Tissues: Endometrium, NOS Procedures: Surgery Specimen Level IV HEADER OPERATION: Hysteroscopy, D & C, Symphion PRE-OP DIAGNOSIS: Postmenopausal bleeding TISSUE SUBMITTED: Endometrial curettings and polyp MICROSCOPIC DIAGNOSIS Endometrial curettings and polyp: Benign endometrial polyp with simple hyperplasia without atypia and with focal degenerative change and associated inflammation. Endometrial curettings with simple hyperplasia without atypia. AM:amanda 07/07/18 MICROSCOPIC DESCRIPTION Slides are reviewed. GROSS DESCRIPTION Received in fixative is one container labeled with the patient's name and designated endometrial curettings and polyp. The specimen consists of an elongated polypoid lesion that is light ratliff-pink in color measuring 6.5 x 1.5 x 1.2 cm. Also present in the specimen container are multiple irregular fragments of light ratliff soft tissue that in aggregate measure 2.5 x 2 x 0.1 cm. The specimen is totally submitted in three cassettes as follows: 1 & 2 - polyp, sectioned, 3 - remainder of tissue. / AM:amanda 07/06/18 TC:1 CPT: 11661
--- NOTE | 2018-07-06 11:13 | PCM.OPRPT ---
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 (7) Deaf Status: Chronic Qualifiers: Comment: Patient has congenital deafness. (8) Deaf Status: Chronic Report of Operation Date of Procedure: 07/06/18 Pre-Operative Diagnosis: postmenopausal bleeding cervical polyp Post-Operative Diagnosis: Same Surgery/Procedure Performed:: D&C hysteroscopy operative resection of endometrial pathology Description of Surgical Findings:: Endometrial curettings endometrial polyp Type of Anesthesia:: Local MAC Special Medications: none Specimen's removed: Endometrial curettings and polyp Drains: none Estimated Blood Loss (mL): 25 Fluids Replaced: Crystalloid Description of Procedure: Patient was prepped and draped in a normal sterile fashion under MAC anesthesia. A weighted speculum was placed in the vagina and the anterior lip of the cervix was grasped with a single-tooth tenaculum. A paracervical block was placed with 1% lidocaine. Cervix was progressively dilated to allow passage of a 5 mm hysteroscope. The lining was fully visualized and noted to have a large endometrial polyp. The endocervical polyp was removed with ring forceps.. Uterine sounded to 9 cm. Using the symphion device, the endometrial polyp and a small possible submucosal fibroid was prgoressively removed without complications. Direct visual curettage was performed using the device , and all specimens were sent to pathology. All instruments were removed from the vagina and excellent hemostasis was noted. Patient was awoken and taken to recovery in stable condition. Grafts/Implants Used: None - Complications None - Admit VTE Documentation VTE Present on Admission: No
[2018-07-06 11:14] VITALS: BP 118/58; BP 125/64; PULSE 78; RESP 14; TEMP 36.9; O2SAT 98
--- NOTE | 2018-07-06 11:16 | DCINST_ITS ---
Discharge Diet: No Restrictions Discharge Activity: Return to Normal Activity, May Shower, May Take a Tub Bath Allergies/Adverse Reactions: Allergies mushroom Allergy (Verified 07/06/18 08:57) Anaphylaxis [place] Adverse Reaction (Unknown, Uncoded 07/06/18 08:57) Unknown Medications to take at Discharge Iron Poly/Vit C [Niferex-150] 125 mg PO DAILYCM 07/28/16 Latanoprost 0.005% [Xalatan Opthalmic] 1 drp EACH EYE QHS 07/28/16 Multivitamins,Therapeutic [Multivitamin] 1 tab PO DAILY 07/28/16 Pregabalin [Lyrica] 100 mg PO TID 07/28/16 Timolol 0.5% [Timoptic] 1 drp EACH EYE BID 07/28/16 Verapamil HCl [Verapamil ER] 80 mg PO DAILY 07/28/16 traMADol [Ultram (G)] 50 mg PO DAILY PRN PRN 07/28/16 tizanidine 4 mg capsule 4 mg PO QHS 03/07/18 diclofenac sodium 75 mg tablet,delayed release 75 mg PO ONCE tab 05/01/18 montelukast 10 mg tablet 10 mg PO QHS #30 tab 05/15/18 levocetirizine 5 mg tablet 5 mg PO QHS PRN #90 tab 05/30/18 Beet Root 2 tab PO TID 06/29/18 Fluticasone Propionate 2 spray INTRANASAL DAILY PRN 06/29/18 Primary Care Physician: Lasha Matthews DO [Primary Care Provider] - Test Results: Test results from this visit will be discussed in further detail at your follow- up appointment, if applicable. Please Follow Up With: Betty Parra MD - [phone]
[2018-07-06 11:19] VITALS: BP 118/58; BP 118/74; PULSE 75; RESP 16; O2SAT 92
[2018-07-06 11:24] VITALS: BP 118/58; BP 125/53; PULSE 72; RESP 16; O2SAT 93
[2018-07-06 11:29] VITALS: BP 118/58; BP 141/85; PULSE 70; RESP 16; TEMP 36.4; O2SAT 95
[2018-07-06 12:00] VITALS: BP 118/58
== END 2018-07-06 12:42 | disposition home or self-care (01) ==
LOC: SDC 08:41 → AC 08:43
PROVIDERS: Family Provider Family Medicine; PCP Family Medicine; Referring Provider Obstetrics & Gynecology; Visit Provider Obstetrics & Gynecology
PROC: 0UB98ZZ Excision of Uterus, Via Natural or Artificial Opening Endoscopic (ICD-10-PCS; CPT 58558; principal; 2018-07-06 09:55)
DX: N85.01 Benign endometrial hyperplasia (principal); N84.0 Polyp of corpus uteri; H11.011 Amyloid pterygium of right eye; M19.90 Unspecified osteoarthritis, unspecified site; Z79.899 Other long term (current) drug therapy; H91.90 Unspecified hearing loss, unspecified ear; K21.9 Gastro-esophageal reflux disease without esophagitis
CPT/HCPCS: 58558; 85027; 86850; 86900; 88305; J7120; J2405

== ENCOUNTER 2018-11-30 00:14 | Emergency (ER) | payer MEDICARE, OTHER, SELFPAY ==
[2018-11-28 13:33] VITALS: BMI 51.6
[2018-11-30 00:15] VITALS: BP 163/101; PULSE 81; RESP 16; TEMP 37.2; O2SAT 99; BMI 44.9
--- NOTE | 2018-11-30 00:41 | RAD_ITS ---
STUDY: X-RAY CHEST REASON FOR EXAM: Female, 58 years old. Headache and dizzy TECHNIQUE: AP portable chest COMPARISON: None. FINDINGS: The lungs are clear and expanded. There is no demonstrated pleural abnormality. Normal size heart. Normal mediastinum and toshia. Normal visualized pulmonary arteries. Normal visualized aortic arch and descending thoracic aorta. Normal visualized thoracic spine. Normal visualized ribs, clavicles, and shoulders. There is no demonstrated abnormality of the visualized soft tissue structures of the upper abdomen. RAD/Chest 1 View IMPRESSION: Normal x-ray examination of the chest. Electronically Signed: Andrea Bingham, at 1:39 EDT Tel , Service support ,
--- NOTE | 2018-11-30 00:41 | EKG12_ITS ---
Test Reason : HEADACHE Blood Pressure : / mmHG Vent. Rate : 063 BPM Atrial Rate : 063 BPM P-R Int : 132 ms QRS Dur : 086 ms QT Int : 422 ms P-R-T Axes : 045 064 056 degrees QTc Int : 431 ms Normal sinus rhythm Normal ECG Confirmed by SHARON CHILDERS, ZHAO ([id number]), editor dictionary MARY ELLEN TOVAR ([id number]) on 12/01/2018 1:22:09 PM Referred By: DARRION Confirmed By:MELISSA HERRERA MD
--- NOTE | 2018-11-30 00:41 | CT_ITS ---
STUDY: CT BRAIN WITHOUT CONTRAST REASON FOR EXAM: Female, 58 years old. Vertigo, headache, hypertension RADIATION DOSAGE (If Supplied By Facility): CTDIvol = ( 44.99 ) mGy, DLP = ( 849.54 ) mGycm TECHNIQUE: Transaxial CT imaging of the brain was performed without administration of intravenous contrast material. Individualized dose optimization techniques were used for this CT. COMPARISON: No relevant priors. FINDINGS: Normal soft tissue structures. Normal calvarium. Normal size ventricles and extra-axial spaces for the patient's age. There is bilateral convexity subarachnoid hemorrhage. Normal basal ganglia and thalami. Normal brainstem. Normal cerebellum. There are no findings of an acute ischemic infarction. There is left maxillary sinus partial opacification CT/Brain/Head without Contrast IMPRESSION: Bilateral convexity subarachnoid hemorrhage [Left maxillary sinusitis] The results were called to and discussed with Physician: Darrian Mcgarry immediately following my review at approximately 1:32 AM 11/30/2018. N.B. : The above information has been verbally conveyed by Andrea Bingham to Dr. Malgorzata MD, on 11/30/2018 01:36:38 (ET). Electronically Signed: Andrea Bingham, at 1:38 EDT Tel , Service support ,
[2018-11-30 00:49] VITALS: BP 199/92; BP 222/97; BP 227/82; PULSE 65; PULSE 67; PULSE 81
[2018-11-30] MEDS: Meclizine HCl 25 MG Tablet PO (00:55)
[2018-11-30 01:21] LABS: Absolute Lymphocyte Count 3.59 X10^3/uL (0.83-4.51); Absolute Neutrophil Count 19.1 X10^3/uL (2.0-7.7); Basophil# 0.05 X10^3/uL; Basophil% 0.2 % (0-1); Eosinophil# 0.08 X10^3/uL; Eosinophils% 0.3 % (0-5); Hematocrit 46.4 % (37-47); Hemoglobin 15.5 g/dL (12.0-15.0); Lymphocyte # 3.59 X10^3/ul (4.0); Lymphocyte % 14.5 % (19-41); Mean Corp Hgb Conc 33.4 g/dL (32-36); Mean Corpuscular Hgb 31.6 pg (27.0-32.0); Mean Corpuscular Volume 94.5 fL (81-99); Mean Platelet Vol. 9.7 fl (6.2-12.0); Monocyte% 7.3 % (0-10); NRBC Flagged by Analyzer 0 % (0-5); Neutrophil % 76.9 % (47-70); POSITIVE DIFFERENTIAL YES; Platelet Count 323 K/mm3 (150-450); RBC Distribution Width CV 12.9 % (11.6-14.6); RBC Distribution Width SD 44.5 fl (35.1-43.9); Red Blood Count 4.91 M/mm3 (4.2-5.4); White Blood Count 24.8 K/mm3 (4.4-11.0)
[2018-11-30 01:23] VITALS: BP 196/81; PULSE 68; RESP 16; O2SAT 95
[2018-11-30 01:23] LABS: Differential Indicated SCAN CRITERIA MET
[2018-11-30 01:29] LABS: International Normalized Ratio 1.1
[2018-11-30 01:30] LABS: Partial Thromboplast Time 27.1 Seconds (24.1-36.2)
[2018-11-30 01:40] LABS: ALB/GLOB Ratio 0.7 RATIO (0.9-2.4); AST(SGOT) 59 U/L (15-37); Alanine Aminotransfer ALT/SGPT 124 U/L (13-56); Albumin, Serum 3.3 g/dL (3.2-5.0); Alkaline Phosphatase 101 U/L (45-117); Anion Gap 6 (5-15); BUN 22 mg/dL (7-18); Chloride 108 mmol/L (98-107); Creatinine, Serum 0.71 mg/dL (0.55-1.02); EST Glomerular Filtration Rate 90 mL/min (>60); Est Glom Filt Rate - Afr Amer 109 mL/min (>60); Estimated Creatinine Clearance 68.31 ml/min; Globulin 4.7 g/dL (2.2-4.2); Glucose 115 mg/dL (74-106); Lipase 733 U/L (73-393); Sodium Level 140 mmol/L (136-145)
--- NOTE | 2018-11-30 01:46 | ED.VISSUMM ---
- ER Visit Summary Date of Service: 11/30/18 Chief Complaint: Headache History of Present Illness: The patient is a 58 F that presents with headache. Symptoms started yesterday. They happen suddenly when she was bending over. She had occipital pain and vertigo. She also had worsening of her chronic back pain and epigastric pain. Denies any other GI symptoms. Denies any other neuro symptoms. She is deaf and requires her to help communicate. She does use some sign language. She has a history of back pain and seasonal allergies. She does not take blood thinners. She denies any trauma. Physical Examination: Afebrile and vital signs unremarkable except blood pressure 163/101. Cranial nerves grossly intact. Good strength and sensation. Heart regular peer lungs clear. Abdomen soft. Test Results: EKG showed sinus rhythm at a rate of 63. Chest x-ray normal. CT brain showed subarachnoid hemorrhage bilaterally. White count 24.8, metabolic panel unremarkable. Coags unremarkable. Troponin normal. Emergency Department Course and Treatment: Patient presents with multiple symptoms. Her history is complicated because of her deafness. We started a broad work-up. While awaiting results, I was notified by nursing that her blood pressure was in the 220s systolic. She was treated with labetalol. Patient went for a CT of her brain. I was notified by the converting technician, that the patient had an abnormal scan. I reviewed the images which showed a subarachnoid hemorrhage bilaterally. I notified the patient and contacted [facility] after communicating with her. Patient was accepted by Dr. Sarmiento to the neuro ICU. He requested Cardene, blood pressure under 140 systolic. He also recommended Keppra. The patient was treated. Labs so far have been unremarkable. Chest x-ray and EKG also unremarkable. Patient remained stable. I was notified by nursing that there has been a prolonged ground transport time. Given the critical nature and ongoing management, aeromedical was called for transport. Treatment Plan: As above Disposition: Transfer Impression: 1. Subarachnoid hemorrhage 2. Hypertension This note was generated with [employer] software. It may contain incorrect words, spelling, and punctuation that were not noted in review of the chart prior to signing ED Disposition - Plan for ED Patient: Referrals: Lasha Matthews, [Primary Care Provider] -
[2018-11-30 02:11] VITALS: BP 255/112; PULSE 71; RESP 14; O2SAT 97
[2018-11-30 02:24] VITALS: BP 255/116
[2018-11-30 02:34] VITALS: BP 259/115; PULSE 79; RESP 16; TEMP 36.7; O2SAT 99
[2018-11-30 13:16] LABS: Pathologist Review Reviewed
== END 2018-11-30 02:47 | disposition short-term general hospital (02) ==
PROVIDERS: Emergency Provider Emergency Medicine; Family Provider Family Medicine; PCP Family Medicine
DX: I60.9 Nontraumatic subarachnoid hemorrhage, unspecified (principal); I10 Essential (primary) hypertension; M54.9 Dorsalgia, unspecified; R10.13 Epigastric pain; G89.29 Other chronic pain; H91.90 Unspecified hearing loss, unspecified ear
CPT/HCPCS: 70450; 71045; 80053; 83690; 84484; 85025; 85610; 85730; 93005; 96365; 96368; 96374; 99285; J7050; A4216

== ENCOUNTER → 2018-12-28 06:53 | Outpatient (CLI) | payer MEDICARE, OTHER, SELFPAY ==
[2018-12-07 15:05] VITALS: BMI 46.8
--- NOTE | 2018-12-29 14:04 | STRESSREP_ITS ---
Stress Test Report Date: 12/28/2018 Procedure: Pharmacologic stress nuclear imaging study Indications: Chest pain Consent: Per the patient Procedure: The patient underwent pharmacologic (Regadenoson) evaluation with a peak heart rate of 93 beats per minute (57 %predicted maximal heart rate) and a peak blood pressure of 130/84 mmHg. The baseline ECG demonstrated normal sinus rhythm. EKG during lexiscan infusion revealed no significant ischemic changes. EKG post infusion revealed no significant ischemic changes. [There were no cardiac dysrhythmias pretest, during pharmacologic infusion, or recovery]. [There was no complaint of chest discomfort during pharmacologic infusion or recovery]. The examination was discontinued secondary to completion of protocol. Impression: 1. Lexiscan stress test test is negative for Lexiscan infusion induced EKG changes of ischemia. 2. Lexiscan stress test test is negative for Lexiscan infusion induced chest pain. 3. Results of the nuclear portion of the test is as below Myocardial perfusion imaging study: Technique: The patient was injected with 14 millicuries of technetium 99m Cardiolite and subsequently rest SPECT Cardiolite nuclear imaging was obtained in the horizontal long, vertical long, and short axis views. The patient underwent pharmacologic (Regadenoson) evaluation. Please see above for details. The patient was injected with 45 millicuries of technetium 99m Cardiolite and subsequently stress SPECT Cardiolite nuclear imaging was obtained in the horizontal long, vertical long, and short axis views. A gated Cardiolite study at peak stress was obtained. Interpretation: Rest and stress SPECT Cardiolite nuclear imaging status post realignment, normalization, and attenuation correction demonstrate normal myocardial radioisotope uptake at rest. There is decreased radioisotope uptake in the anterior wall on the stress images. This is suggestive of mild anterior ischemia. Gated images reveal no significant regional wall motion abnormalities. The reported LVEF is greater than 70 %. Impression: 1. There is possible mild anterior ischemia. 2. Estimated ejection fraction is greater than 70%. This note was generated with [employer] software. It may contain incorrect words, spelling, and punctuation that were not noted in checking the note before signing.
== END ==
PROVIDERS: Family Provider Family Medicine; PCP Family Medicine; Referring Provider Internal Medicine; Visit Provider Internal Medicine
DX: R07.9 Chest pain, unspecified (principal); I10 Essential (primary) hypertension; I60.9 Nontraumatic subarachnoid hemorrhage, unspecified
CPT/HCPCS: 78452; 93017; A9500; A4216; J2785

== ENCOUNTER → 2019-01-09 20:00 | Outpatient (CLI) | payer MEDICARE, OTHER, SELFPAY ==
[2018-12-07 15:05] VITALS: BMI 46.8
== END ==
PROVIDERS: Family Provider Family Medicine; PCP Family Medicine; Referring Provider Internal Medicine; Visit Provider Internal Medicine
DX: G47.10 Hypersomnia, unspecified (principal)
CPT/HCPCS: 95810

== ENCOUNTER → 2019-02-28 20:05 | Outpatient (CLI) | payer MEDICARE, OTHER, SELFPAY ==
[2019-02-15 14:01] VITALS: BMI 46.3
== END ==
PROVIDERS: Family Provider Family Medicine; PCP Family Medicine; Referring Provider Nurse Practitioner Acute Care; Visit Provider Nurse Practitioner Acute Care
DX: G47.33 Obstructive sleep apnea (adult) (pediatric) (principal)
CPT/HCPCS: 95811

== ENCOUNTER → 2019-03-22 14:48 | Outpatient (CLI) | payer MEDICARE, OTHER, SELFPAY ==
[2019-02-15 14:01] VITALS: BMI 46.3
== END ==
PROVIDERS: PCP Family Medicine; Referring Provider Nurse Practitioner Acute Care; Visit Provider Nurse Practitioner Acute Care
DX: Z46.89 Encounter for fitting and adjustment of other specified devices (principal)

== ENCOUNTER → 2019-08-21 11:00 | Outpatient (CLI) | payer MEDICARE, OTHER, SELFPAY ==
[2019-08-14 11:20] VITALS: BMI 46.3
== END ==
PROVIDERS: PCP Family Medicine; Referring Provider Nurse Practitioner Acute Care; Visit Provider Nurse Practitioner Acute Care
DX: Z46.89 Encounter for fitting and adjustment of other specified devices (principal)
CPT/HCPCS: 98960; G0463

== ENCOUNTER → 2020-04-21 13:42 | Outpatient (CLI) | payer MEDICARE, OTHER, SELFPAY ==
[2020-03-24 10:17] VITALS: BMI 50.8
== END ==
PROVIDERS: PCP Internal Medicine; Referring Provider Nurse Practitioner Acute Care; Visit Provider Nurse Practitioner Acute Care
DX: G47.33 Obstructive sleep apnea (adult) (pediatric) (principal)
CPT/HCPCS: 98960; G0463

== ENCOUNTER → 2020-05-27 12:30 | Outpatient (CLI) | payer MEDICARE, OTHER, SELFPAY ==
[2020-03-24 10:17] VITALS: BMI 50.8
[2020-05-27 13:00] VITALS: PULSE 101; PULSE 103; PULSE 104; PULSE 73; PULSE 79; PULSE 94; PULSE 96; O2SAT 94; O2SAT 95; O2SAT 96; O2SAT 97
--- NOTE | 2020-05-28 13:41 | PCM.PSN.6M ---
PSN 6 Minute Walk Test - 6 Minute Walk Test 6 Minute Walk Test: 6 Minute Walk Test PSN:6-Minute Walk Test Start: 05/27/20 13:00 Freq: Status: Active Protocol: RESP.6MINW Document 05/27/20 13:00 PATRICIA (Rec: 05/27/20 13:03 PATRICIA [id number]) 6 Minute Walk Test Date Performed 05/27/20 Time Performed 12:30 Height 5 ft 2 in Weight: 250 lb 2.49 oz Weight in Pounds 250.[address]: Eli Huff ORTHODONTIC ASSISTANT Assistive device used: None Pre-test Oxygen Delivery Method Room Air Pulse Ox (%) 96 Pulse Rate (60-100 beats/min) 73 Dyspnea Kelsea Scale (0-10) 0 Exertion Kelsea Scale (6-20) 6 1st minute Oxygen Delivery Method Room Air Pulse Ox (%) 95 Pulse Rate (60-100 beats/min) 96 2nd minute Oxygen Delivery Method Room Air Pulse Ox (%) 95 Pulse Rate (60-100 beats/min) 104 H 3rd minute Oxygen Delivery Method Room Air Pulse Ox (%) 95 Pulse Rate (60-100 beats/min) 103 H 4th minute Oxygen Delivery Method Room Air Pulse Ox (%) 95 Pulse Rate (60-100 beats/min) 101 H 5th minute Oxygen Delivery Method Room Air Pulse Ox (%) 95 Pulse Rate (60-100 beats/min) 96 6th minute Oxygen Delivery Method Room Air Pulse Ox (%) 94 Pulse Rate (60-100 beats/min) 94 Dyspnea Kelsea Scale (0-10) 3 Exertion Kelsea Scale (6-20) 13 Post-test Oxygen Delivery Method Room Air Pulse Ox (%) 97 Pulse Rate (60-100 beats/min) 79 Full Laps Walked 10 Partial Lap, Number of Tiles Walked 25 Total Distance Walked (ft) 615 - Interpretation Interpretation: The patient ambulated 615 feet over the course of 6 minutes beginning on room air without assistive devices or breaks. Pretesting oxygen saturation was noted to be 96% on room air. With ambulation, the pedro oxygen saturation was 94%. Although there was evidence of impaired walk distance, there was no significant exertional oxygen desaturation. - Recommendations Recommendations: There is no indication for the use of supplemental oxygen at this time.
== END ==
PROVIDERS: PCP Internal Medicine; Visit Provider Nurse Practitioner Acute Care
DX: G47.33 Obstructive sleep apnea (adult) (pediatric) (principal)
CPT/HCPCS: 94618

== ENCOUNTER 2021-02-19 16:19 | Outpatient (CLI) | payer MEDICARE, OTHER, SELFPAY | END 2021-02-19 23:59 | disposition short-term general hospital (02) | LOC: SL 16:19 | PROVIDERS: PCP Internal Medicine; Visit Provider Nurse Practitioner Acute Care | DX: Z00.00 Encounter for general adult medical examination without abnormal findings (principal) ==

== ENCOUNTER → 2021-11-17 | Outpatient (CLI) | payer MEDICARE, OTHER, SELFPAY | END | disposition home or self-care (01) | LOC: SL 20:45 | PROVIDERS: PCP Internal Medicine; Visit Provider Nurse Practitioner Acute Care | DX: G47.33 Obstructive sleep apnea (adult) (pediatric) (principal) | CPT/HCPCS: 95811 ==

== ENCOUNTER 2022-02-02 16:36 | Emergency (ER) | payer OTHER, MEDICARE, SELFPAY ==
[2022-02-02 16:37] VITALS: BP 114/67; PULSE 55; RESP 16; TEMP 36.2; O2SAT 99; BMI 36.5
--- NOTE | 2022-02-02 17:18 | CT_ITS ---
STUDY: CT CERVICAL SPINE WITHOUT CONTRAST REASON FOR EXAM: Female, 61 years old. neck trauma RADIATION DOSAGE (If Supplied By Facility): CTDIvol = ( 24.50 ) mGy, DLP = ( 432.78 ) mGycm TECHNIQUE: High resolution transaxial imaging was performed without contrast material. Sagittal and coronal images were reconstructed. Individualized dose optimization techniques were used for this CT. COMPARISON: None FINDINGS: Normal craniovertebral junction. There are degenerative changes of the anterior atlantoaxial articulation. Normal odontoid process. Normal cervical lordosis. Normal vertebral bodies and posterior osseous elements. C2-3: Normal endplates. Normal disc height and morphology. Normal central canal and intervertebral neuroforamina. C3-4: Normal endplates. Normal disc height and morphology. Normal central canal and intervertebral neuroforamina. C4-5: Normal endplates. Normal disc height and morphology. Normal central canal and intervertebral neuroforamina. C5-6: Normal endplates. Normal disc height and morphology. Normal central canal and intervertebral neuroforamina. C6-7: Normal endplates. Normal disc height and morphology. Normal central canal and intervertebral neuroforamina. C7-T1: Normal endplates. Normal disc height and morphology. Normal central canal and intervertebral neuroforamina. Normal visualized soft tissue structures. CT/Spine Cervical without Contras IMPRESSION: Normal unenhanced CT examination of the cervical spine. Electronically Signed: Marlo Clayton MD at 17:41 EST ,
--- NOTE | 2022-02-02 17:18 | CT_ITS ---
STUDY: CT BRAIN WITHOUT CONTRAST REASON FOR EXAM: Female, 61 years old. head trauma RADIATION DOSAGE (If Supplied By Facility): CTDIvol = ( 44.99 ) mGy, DLP = ( 829.85 ) mGycm TECHNIQUE: Transaxial CT imaging of the brain was performed without administration of intravenous contrast material. Individualized dose optimization techniques were used for this CT. COMPARISON: 11/30/2018 FINDINGS: Normal soft tissue structures. Normal calvarium. Normal size ventricles and extra-axial spaces for the patient''s age. Normal white matter tracts of the cerebral hemispheres. Normal basal ganglia and thalami. Normal brainstem. Normal cerebellum. There is no intracranial hemorrhage. There are no findings of an acute ischemic infarction. Normal visualized paranasal sinuses. CT/Brain/Head without Contrast IMPRESSION: Normal unenhanced CT scan of the brain. Electronically Signed: Marlo Clayton MD at 17:44 EST ,
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
[2022-02-02 17:49] VITALS: O2SAT 98
--- NOTE | 2022-02-02 18:05 | RAD_ITS ---
STUDY: X-RAY - MANDIBLE (COMPLETE) REASON FOR EXAM: Female, 61 years old. jaw pain TECHNIQUE: 6 view(s) of the mandible were obtained. COMPARISON: None. FINDINGS: Normal mandible. Normal visualized right temporomandibular joint. Normal visualized left temporomandibular joint. The remaining visualized osseous structures are normal. The soft tissue structures are unremarkable. RAD/Mandible Min 4 Views IMPRESSION: Normal x-ray examination of the mandible. Electronically Signed: Marlo Clayton MD at 18:19 EST ,
[2022-02-02 19:13] VITALS: BP 114/63; PULSE 58; RESP 15; O2SAT 98
== END 2022-02-02 19:16 | disposition home or self-care (01) ==
PROVIDERS: Emergency Provider Student in an Organized Health Care Education/Training Program; PCP Internal Medicine; Visit Provider Student in an Organized Health Care Education/Training Program
DX: S16.1XXA Strain of muscle, fascia and tendon at neck level, initial encounter (principal); R68.84 Jaw pain; V89.0XXA Person injured in unspecified motor-vehicle accident, nontraffic, initial encounter
CPT/HCPCS: 70110; 70450; 72125; 99284

== ENCOUNTER → 2022-08-06 | Outpatient (CLI) | payer MEDICARE, OTHER, SELFPAY | END | disposition home or self-care (01) | LOC: SL 11:31 | PROVIDERS: PCP Internal Medicine; Visit Provider Nurse Practitioner Acute Care | DX: G47.33 Obstructive sleep apnea (adult) (pediatric) (principal) ==

== ENCOUNTER 2022-08-16 17:30 | Outpatient (RCR) | payer OTHER, MEDICARE, SELFPAY ==
--- NOTE | 2022-07-22 18:51 | HP.PTEVAL ---
Patient's Visit Information CHRISTEL MEYER is a 61 year old F referred to Physical Therapy by GERARD Mcpherson with a diagnosis of RIGHT LEG PAIN. Date of Evaluation: 07/22/22 Physical Therapist: Everardo Rubio PT, Cert MDT, OCS - Visit Plan Frequency: 2x /Week Duration: 4 Weeks Plan: PT INTERVETIONS MODALTIES FOR BACK PAIN ,DLS ABD/BACK ,LUMBAR ROM , AND POSTURAL EX'S - Subjective This 61 y/o female presents to physical therapy with right leg pain. 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 Alleviating factors rest ,stretching. Patient was giving pain medication. C/O paresthesia/tingling intermittent. Patient symptoms on right side . Patient was given epidural injection lumbar. Bowel/bladder-. Coughing/sneezing-. Patient has had no trauma. Patient condition affects QOL and function. SOCIAL: single. VOCATION: [employer] - Pain Right Lower Extremity Pain Intensity (Out of 10): 7 Pain Intensity Range: 10 - Objective POSTURE: rounded shoulders head forward. PALAPTION: tender right thoracic paraspinals. NEURO: denies paresthesia/tingling ,reflexes L3-4,L4-5,L5-S1 23. GAIT: reciprocal pattern. LUMBAR ROM: flexion min loss ,extension mod loss ,side glides min loss. FLEXABLITY: hamstrings min tight - Special Tests L/S Slump test left side: Negative L/S Slump test right side: Negative L/S Left Straight Leg Raise: Negative L/S Right Straight Leg Raise: Negative Lumbar Standing: Flexion - Mechanical Response: No effect Lumbar Standing: Flexion - Symptoms During Testing: No effect Lumbar Standing: Flexion - Symptoms After Testing: No effect Lumbar Standing: Extension - Mechanical Response: No effect Lumbar Standing: Extension - Symptoms During Testing: Decreases Lumbar Standing: Extension - Symptoms After Testing: No better Lumbar Standing: Right Side Glides - Mechanical Response: No effect Lumbar Standing: Right Side [place] - Symptoms During Testing: No effect Lumbar Standing: Right Side [place] - Symptoms After Testing: No effect Lumbar Standing: Left Side [place] - Mechanical Response: No effect Lumbar Standing: Left Side [place] - Symptoms During Testing: No effect Lumbar Standing: Left Side [place] - Symptoms After Testing: No effect Lumbar Lying: Flexion - Mechanical Response: No effect Lumbar Lying: Flexion - Symptoms During Testing: Increases Lumbar Lying: Flexion - Symptoms After Testing: No worse Lumbar Lying: Extension - Mechanical Response: No effect Lumbar Lying: Extension - Symptoms During Testing: Increases Lumbar Lying: Extension - Symptoms After Testing: No worse - Balance/Special Test Scores Oswestry Low Back Score: 24 - Goals Goal 1:: Patient to be I with HEP to manage back pain Goal Time Frame: 4-6 Weeks Goal 2:: Patient to improve posture /ADLS for job demands Goal Time Frame: 4-6 Weeks Goal 3:: Patient to improve lumbar ROM for function of recovery for job demands Goal Time Frame: 4-6 Weeks Goal 4:: Patient to demonstrate 50% improvement with decrease symptoms and legs pain for function Goal Time Frame: 4-6 Weeks Goal 5:: Patient to improve back oswestry score by 5 points or > to improve QOL Goal Time Frame: 4-6 Weeks - Rehabilitation Potential Physical Therapy Diagnosis: This patient has lumbar radicular symptoms worse with positioning and motion testing along with pain during housework tasks and job demands thus benefit from skilled PT Rehabilitation Potential: Good - Anticipated Interventions Patient/Client Instruction: Educate patient on: Condition, Plan of Care For the Purpose of:: To decrease pain, To increase ROM, To improve muscle performance and motor function, To improve ability to perform ADL's, To increase tolerance to activity/condition/position, To improve ability of physical actions for home/community/work/leisure, To decrease soft tissue restriction, To increase flexibility/ROM, To improve endurance Therapeutic Exercise to Include: Strength training, Body mechanics, Postural training, Flexibilty training, Dynamic Lumbar Stabilization, Jason Exercises For the Purpose of:: To decrease pain, To increase ROM, To improve muscle performance and motor function, To improve ability to perform ADL's, To increase tolerance to activity/condition/position, To improve performance and independence with ADL's, To improve ability of physical actions for home/community/work/leisure, To improve health of tissue, To decrease soft tissue restriction, To increase flexibility/ROM TENS: Yes IF ES: Yes Cryotherapy (ice pack, ice massage): Yes Thermo therapy (hot pack): Yes Ultrasound (thermal/non thermal): Yes For the Purpose of:: To decrease pain, To increase ROM, To improve nutrient delivery to tissue, To increase oxygenation perfusion, To improve health of tissue, To decrease soft tissue restriction Thank you for the opportunity to evaluate your patient. For Medicare and Medicare HMO plans, please review the plan of care and approve it. It will need to be FAXED BACK to us at [phone] for Medicare purposes. For Medicare only, by signing this I certify the plan of care. Please let me know if there are questions or concerns regarding this plan of care. Physician Signature: Date:
--- NOTE | 2022-10-12 11:02 | HP.PT.NRP ---
Patient Information Patient Information: CHRISTEL MEYER was seen in my office for initial evaluation on 07/22/22. The following Plan of Care was established for this patient: POC Established Initial Frequency: 2x /Week Initial Duration: 4 Weeks Anticipated Interventions Patient/Client Instruction: Educate patient on: Condition and Plan of Care For the Purpose of:: To decrease pain, To increase ROM, To improve muscle performance and motor function, To improve ability to perform ADL's, To increase tolerance to activity/condition/position, To improve ability of physical actions for home/community/work/leisure, To decrease soft tissue restriction, To increase flexibility/ROM and To improve endurance Therapeutic Exercise to Include: Strength training, Body mechanics, Postural training, Flexibilty training, Dynamic Lumbar Stabilization and Jason Exercises For the Purpose of:: To decrease pain, To increase ROM, To improve muscle performance and motor function, To improve ability to perform ADL's, To increase tolerance to activity/condition/position, To improve performance and independence with ADL's, To improve ability of physical actions for home/community/work/leisure, To improve health of tissue, To decrease soft tissue restriction and To increase flexibility/ROM TENS: Yes IF ES: Yes Cryotherapy (ice pack, ice massage): Yes Thermo therapy (hot pack): Yes Ultrasound (thermal/non thermal): Yes For the Purpose of:: To decrease pain, To increase ROM, To improve nutrient delivery to tissue, To increase oxygenation perfusion, To improve health of tissue and To decrease soft tissue restriction Last Seen Last Seen: This patient was last seen in our office . Pertinent comments regarding their Physical therapy will appear below: Patient seen for PT for back pain for 8 visits focusing on DLS and postural ex's thus is d/c At this point I will be discontinuing this patient from physical therapy. I would be happy to see this patient again in the future if found appropriate by the physician. Thank you! Everardo Rubio, PT, Cert MDT, OCS Balance/Gait/Functional tests Balance/Special Test Scores Oswestry Low Back Score: 7
== END 2022-08-16 19:00 | disposition home or self-care (01) ==
LOC: PT 17:30
PROVIDERS: PCP Internal Medicine; Referring Provider Internal Medicine; Visit Provider Internal Medicine
DX: M79.604 Pain in right leg (principal)
CPT/HCPCS: 97110; 97162

== ENCOUNTER → 2022-09-02 | Outpatient (CLI) | payer MEDICARE, OTHER, SELFPAY | END | disposition home or self-care (01) | LOC: SL 17:55 | PROVIDERS: PCP Internal Medicine; Visit Provider Internal Medicine Critical Care Medicine | DX: Z00.00 Encounter for general adult medical examination without abnormal findings (principal) ==

== ENCOUNTER 2022-10-14 10:30 | Emergency (ER) | payer MEDICARE, OTHER, SELFPAY ==
[2022-10-14 10:31] VITALS: BP 143/69; PULSE 61; RESP 18; TEMP 36; O2SAT 98
[2022-10-14 11:30] VITALS: BMI 35.5
--- NOTE | 2022-10-14 11:46 | ED.VIS.BACK ---
HPI History of Present Illness Chief Complaint: Back Detail of Chief Complaint: Leg down her hamstring. Onset/Context/Timing Onset: Days Context: Gradual Onset Timing: Continuous Quality: Sharp Current Severity: Moderate Maximum Severity: Moderate Worsened by: improves with Movement Relieved by: Remaining Still Associated Symptoms Associated Symptoms: Radiation to Right Leg; Negative for Numbness, Tingling, Radiation to Left Leg, Fever, Abdominal Pain, Dysuria, Unable to Ambulate, Unable to Transfer, Urinary Retention, Urinary Incontinence, Constipation or Fecal Incontinence Narrative Narrative: 62-year-old female history of hypertension, sciatica and deafness. Currently there is no family present in room. She has had back pain radiating to her right hamstring and leg down to her knee for approximately a week. Denies any fall injury or trauma. Has had injections in the past not recently. Denies any fever. She does see pain management in [facility]. No prior back surgeries. No dysuria. No weakness. No fall nor trauma. Prior similar symptoms: Yes and With Prior Back Pain Recent Illness/Hospitalization: No PFSH PFS Medical History (Updated 10/14/22 @ 13:[address] Brent Kruger MD) Abnormal nuclear cardiac imaging test Acute sinusitis, unspecified Amyloid pterygium of right eye Arthritis Back problem Deaf DJD (degenerative joint disease) of knee Essential hypertension Neck pain Reversible cerebrovascular vasoconstriction syndrome Right anterior shoulder pain Screening for breast cancer Simple endometrial hyperplasia without atypia Subarachnoid bleed Home Medications iron aspgl and ps cmplx 150 mg-vit C 50 mg-succinic acid 50 mg capsule 125 mg PO DAILYCM 07/28/16 [History Last Taken Unknown] latanoprost 0.005 % eye drops 1 drp EACH EYE QHS 07/28/16 [History Last Taken Unknown] multivitamin with folic acid 400 mcg tablet 1 tab PO DAILY 07/28/16 [History Last Taken Unknown] pregabalin 150 mg capsule 100 mg PO TID 07/28/16 [History Last Taken Unknown] timolol maleate 0.5 % eye drops 1 drp EACH EYE BID 07/28/16 [History Last Taken Unknown] tizanidine 4 mg capsule 4 mg PO QHS 03/07/18 [History Last Taken Unknown] levocetirizine 5 mg tablet 5 mg PO QHS PRN allergy symptoms #90 tabs 05/30/18 [Rx Last Taken Unknown] dilurex PO 10/03/18 [History Last Taken Unknown] antiarthritic combination no.2 900 mg tablet (glucosamine-chondroitin) 1,800 mg PO BID 11/23/18 [History Last Taken Unknown] acetaminophen 500 mg tablet (Tylenol Extra Strength) 1,000 mg (2 x 500 mg) PO .Q8 PRN fever or pain #90 tabs 11/28/18 [Rx Last Taken Unknown] verapamil 120 mg 24 hr capsule,extended release 120 mg PO DAILY #90 caps 12/07/18 [Rx Last Taken Unknown] montelukast 10 mg tablet 10 mg PO QHS #90 tabs 12/12/18 [Rx Last Taken Unknown] diclofenac sodium 75 mg tablet,delayed release 75 mg PO ONCE PRN pain #90 tabs 01/09/19 [Rx Last Taken Unknown] calcium carb-vit [id number] 333 mg-200 unit-133 mg-5 mg tablet 1 tab PO DAILY 02/15/19 [History Last Taken Unknown] oxycodone-acetaminophen 5 mg-325 mg tablet (Percocet) 1 tab PO Q4H 6 days #36 tabs 10/14/22 [Rx Last Taken Unknown] prednisone 20 mg tablet 40 mg (2 x 20 mg) PO DAILY 10 days #20 tabs 10/14/22 [Rx Last Taken Unknown] Allergy/AdvReac Type Severity Reaction Status Date / Time mushroom Allergy Anaphylaxis Verified 08/19/22 14:16 Food Allergies: Uncoded AdvReac Unknown PT UNSURE Verified 08/19/22 14:16 OF REACTION Family History Father Heart disease Son Asthma Mother Arthritis Aunt Diabetes Surgical History History of appendectomy Hx of toe surgery Social History Smoking Status: Never smoker second hand exposure: No alcohol intake: never substance use type: does not use caffeine: Yes what type of physical activity do you participate in: none seatbelt use: always ROS ROS ED ROS Narrative Low back pain radiating to right buttock and hamstring. Illness. Review of Systems ROS Unobtainable: Denies due to encephalopathy Constitutional Constitutional ED: Denies chills or fever(s) Eyes Eyes: Denies blurry vision ENT ENT ED: Denies ear pain Cardiovascular Cardiovascular: Denies chest pain Respiratory/Chest Respiratory/Chest: Denies dyspnea Gastrointestinal Gastrointestinal: Denies abdominal pain Genitourinary Genitourinary ED: Denies dysuria or hematuria Musculoskeletal Musculoskeletal: Reports back pain; Denies arthralgias Integumentary Denies abscess or Abrasions Neurologic Neurologic: Denies headache(s) Psychiatric Psychiatric: Denies anxiety Endocrine Endocrinology: Denies cold intolerance Hematologic/Lymphatic Hematologic/Lymphatic: Denies easy bleeding or easy bruising Allergic/Immunologic Allergic/Immunologic ED: Denies mouth swelling or tongue swelling EXAM Physical Exam Narrative Exam Narrative: 60-year-old female vital signs stable afebrile. No distress. Sitting upright in bed. No one present in room currently besides the patient. H EENT exam unremarkable. Neck nontender. Lungs clear to auscultation. Heart regular rhythm rate about 60 no murmur. Abdomen soft nontender normal bowel sounds no peritoneal signs. Moving all 4 extremities. Back exam spine nontender. No prior surgeries. No recent injections noted. Tenderness to the right SI joint. Right leg is neurovascularly intact with normal dorsi plantarflexion. No cauda equina or saddle anesthesia. Left leg is unremarkable. Neurologically she is awake and alert with no focal motor deficits. Const Vital Signs: 10/14/22 10:31 Temperature 96.8 F L Temperature Source Temporal Pulse Rate 61 Respiratory Rate 18 Blood Pressure 143/69 H Blood Pressure Mean 93 Pulse Ox 98 Oxygen Delivery Method Room Air Positive well nourished and well developed; Negative for cachectic, contractures or unkempt General Appearance ED: well developed and NAD; Negative for unkempt, cachectic, contractures or pallor Nutritional Appearance: Negative for cachectic HEENT Reports moist mucous membranes Negative for trauma or tenderness Eyes PERRL and EOMs intact bilaterally General Eye ED: Negative for pale conjunctiva or scleral icterus Neck no lymphadenopathy, supple and no JVD General: Negative for tenderness Thyroid: Negative for other Resp normal respiratory effort and clear to auscultation bilaterally Effort and Inspection: pain with movement Auscultation: Negative for rales, rhonchi or wheezes Cardio regular rate, regular rhythm, S1 normal heart sound, S2 normal heart sound and no murmurs Palpation: Negative for palpable S3 Rate: Negative for bradycardia Rhythm: Negative for abnormal rhythm Bruits: Negative for other GI normal to inspection, nondistended, normoactive bowel sounds, soft to palpation, non-tender, non-distended and no masses Inspection: Negative for abdominal distention Palpation: Negative for tender or guarding Bladder / Kidney Exam: No other Back/Spine normal to inspection and no thoracic nor lumbar tenderness Back/Spine Narrative: Right SI tenderness. General Back: Negative for CVA tenderness Cervical Spine: Negative for cervical spine tenderness Thoracic Spine / Upper Back: Negative for paraspinal muscle tenderness Extremity normal to inspection and no clubbing, cyanosis or edema General Extremety ED: Negative for edema or tenderness General Extremity: Negative for edema Neuro oriented x3 Sensorium / Orientation: alert; Negative for confused, lethargic or stuporous Motor Exam: strength 5/5 throughout Psych mental status grossly normal Appearance: Negative for unkempt Attitude: No agitated Mood & Affect: Negative for depressed Skin no rashes or lesions noted General Skin Exam: Negative for jaundice or pallor Lesions: No lesion noted Rashes: No rashes noted Trauma: Negative for abrasion or puncture Wounds: Negative for wounds noted MDM MDM MDM Narrative Medical decision making narrative: 62-year-old female with right lower back pain radiating to her right leg consistent with acute sciatica. No cauda equina. No weakness or numbness. Treated with p.o. Bonduel. I will speak with the family and they arrived. Exam no significant change at 1:15 PM. Family is present in room I spoke to her daughter who can sign well [employer] well with her mother which is the patient. They are comfortable being discharged home. She sees pain management in [place]. She will follow-up with them if not improving they know that she may need an MRI if this is not improving because this is either sciatica or degenerative disc disease with radiculopathy. She is having no weakness or numbness in her lower extremities. There is no cauda equina. She will be given an IM injection of morphine. She will be written for Bonduel and prednisone for home. History & Record Review Discussion w/independent historian: Patient Discharge Plan Triage Chief Complaint: Back ED Provider: Brent Kruger Dx/Rx/DC Orders Clinical Impression: Sciatica, Deaf, Back pain Instructions: ED Back Pain (Acute or Chronic), ED Sciatica Prescriptions: New prednisone 20 mg tablet 40 mg PO DAILY 10 Days Qty: 20 0RF oxycodone-acetaminophen [Percocet] 5-325 mg tablet 1 tab PO Q4H 6 Days Qty: 36 0RF No Action tizanidine 4 mg capsule 4 mg PO QHS dilurex PO glucosamine-chondroitin 900 mg tablet 1,800 mg PO BID acetaminophen [Tylenol Extra Strength] 500 mg tablet 1,000 mg PO .Q8 PRN (Reason: fever or pain) Qty: 90 2RF verapamil 120 mg capsule,ext rel. pellets 24 hr 120 mg PO DAILY Qty: 90 2RF calcium carb-D3-mag [id number] vg-[id number]-mg tablet 1 tab PO DAILY Rx Instructions: administer with a meal latanoprost 1 DROP bottle 1 drp EACH EYE QHS pregabalin 150 MG capsule 100 mg PO TID iron aspgl,ps complex-vit C-sa 150 MG capsule 125 mg PO DAILYCM multivitamin with folic acid 1 TABLET tablet 1 tab PO DAILY timolol maleate 1 DROP drops 1 drp EACH EYE BID levocetirizine 5 mg tablet 5 mg PO QHS PRN (Reason: allergy symptoms) Qty: 90 3RF montelukast 10 mg tablet 10 mg PO QHS Qty: 90 3RF diclofenac sodium 75 mg tablet,delayed release (DR/EC) 75 mg PO ONCE PRN (Reason: pain) Qty: 90 1RF Primary Care Provider: Christiana Augustin Referrals: Christiana Augustin MD [Primary Care Provider] - 1 Week if not improving Activity Restrictions/Additional Instructions: Either right-sided sciatica or pinched nerve due to a lumbar disc. Prednisone should decrease inflammation and help either. Percocet for pain. Follow-up with your primary care physician or your pain management doctors in [place] if this is not improving you may need an MRI to evaluate your lower back for a swollen or herniated disc. Return if fever or intractable pain leg weakness or numbness. Otherwise follow-up with your primary care physician or your pain management doctor. Disposition Disposition: Home, Self Care
[2022-10-14] MEDS: HYDROcodone Bitartrate/Apap 5/325 Tablet PO (11:54)
[2022-10-14] MEDS: morphine 10 MG/ML Syringe IM (13:34)
[2022-10-14 14:12] VITALS: BP 122/58; PULSE 72; RESP 18; O2SAT 99
== END 2022-10-14 14:13 | disposition home or self-care (01) ==
PROVIDERS: Emergency Provider Emergency Medicine; PCP Internal Medicine; Visit Provider Emergency Medicine
DX: M54.30 Sciatica, unspecified side (principal); I10 Essential (primary) hypertension; H91.90 Unspecified hearing loss, unspecified ear; M54.9 Dorsalgia, unspecified; H11.011 Amyloid pterygium of right eye; Z90.49 Acquired absence of other specified parts of digestive tract
CPT/HCPCS: 96372; 99283; A4216

== ENCOUNTER → 2023-05-27 | Outpatient (CLI) | payer MEDICARE, OTHER, SELFPAY | END | disposition home or self-care (01) | PROVIDERS: PCP Internal Medicine; Referring Provider Nurse Practitioner Acute Care; Visit Provider Nurse Practitioner Acute Care | DX: G47.33 Obstructive sleep apnea (adult) (pediatric) (principal) | CPT/HCPCS: 95810 ==

== ENCOUNTER 2024-09-03 21:43 | Inpatient (IN) | payer MEDICARE, OTHER, SELFPAY ==
[2024-09-03 22:24] VITALS: BP 111/63; PULSE 77; RESP 16; TEMP 36.6; O2SAT 95; BMI 42.5
[2024-09-04] MEDS: Senna/Docusate Sodium 1 Tablet 2 TABLET PO ×3 (00:03→21:54)
[2024-09-04] MEDS: Timolol 0.5% 5ML OPTH.BTL 1 DRP EACH EYE ×3 (00:12→21:54)
[2024-09-04 06:00] VITALS: BP 112/74; PULSE 87; RESP 16; TEMP 37.2; O2SAT 97
[2024-09-04 06:09] LABS: AST(SGOT) 16 U/L (<=31); Alanine Aminotransfer ALT/SGPT 13 U/L (<=34); Albumin, Serum 3.3 g/dL (3.4-4.8); Alkaline Phosphatase 54 U/L (35-104); Anion Gap 9 (5-15); BUN 7 mg/dL (4-19); BUN/Creat Ratio 15.2 RATIO (10-20); Calcium,Total 8.7 mg/dL (7.6-11.0); Carbon Dioxide 26.4 mmol/L (21.0-32.0); Chloride 104 mmol/L (98-108); Estimated Creatinine Clearance 124.04 ml/min (50-250); Globulin 2.9 g/dL (2.2-4.2); Glucose 108 mg/dL (70-99); Magnesium 2.2 mg/dL (1.5-2.2); Potassium 3.8 mmol/L (3.3-5.1)
--- NOTE | 2024-09-04 06:54 | NURSING ---
Per operations supervisor 2nd shift staff unable to utilize Ipad for Italian Sign Language. This Nurse called [phone], was given another phone number of [phone]. Per claims representative scheduling will call me back. They open at 07:00
--- NOTE | 2024-09-04 06:55 | NURSING ---
2238: this nurse attempted to utilize online motor vehicle parts interpreter service. Five different interpreters used in the span of one hour. Promotions Executive Producer service kept cutting out and hanging up on the patient. Patient requesting to have motor vehicle parts interpreter present for ALL communication.
[2024-09-04 07:00] VITALS: BP 112/74; BP 117/74; BP 93/37; PULSE 108; PULSE 84; PULSE 90
--- NOTE | 2024-09-04 07:17 | PCM.HP.STD ---
HPI - General General Date of Admission: 09/03/24 Chief Complaint: Debility due to Lumbar spinal fusion HPI Narrative FARTUN MEYER, is a 63 YO F with a PMH of congenital deafness, glaucoma, mild aortic regurgitation, mild-mod TR, reversible cerebrovascular vasoconstriction syndrome, HTN, LEANN, OA, morbid obesity, scoliosis, lumbar canal stenosis and spondylolisthesis who under decompression and spinal fusion of L2-S1 on 08/30/[address] Lang at the [facility]. Post-op course unremarkable except for complaints of pain and dizziness. 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 No family assist available during the day. Both children work. Transferred to the acute inpt rehab unit at [facility] on 09/03/24 for 3 hours of therapy daily to restore function/independence at or near her level prior to surgery. She has been struggling with progressive spinal canal stenosis with radicular pain in the BL legs, paresthesias and weakness. Orthostatics last night were mildly +. BP did not change significantly but, HR increased 84 lying down to 108 standing up. The blood pressure actually increased from 93/37 lying down to 117/74 standing. HR increase may be related to increased pain with standing/wt bearing. BMI is 42.6. All lab was personally reviewed. White blood cell count is 14,000 with a mild left shift which I suspect is secondary to pain/stress rather than to the infection.. Hemoglobin is 8.2 The platelets are within normal limits. Sodium is 139 and the potassium is 3.8. BUN is 7 with a creatinine of 0.49. GFR is 106. BUN/creatinine ratio is 15.2. Calcium, magnesium and phosphorus are all within normal limits. LFTs are normal. Fartun has pain in the RLE but, it is much less than it was prior to the surgery. Her pain is primarily in the back/incision. She has numbness in the feet. She denies CP, SOB, cough, N/V/abd pain, dysuria. Holds her breath when she is ambulating because of pain and then she gets lightheaded. She worked with PT/OT and had no lightheadedness today. No BM since the surgery per patient and she is feeling constipated. Had MOM yesterday with no results. Will get a different laxative today. [facility] Medical History (Updated 09/04/24 @ 11:[address] Lacy Love, DO) Spondylolisthesis of lumbar region Lumbar canal stenosis LEANN (obstructive sleep apnea) Obesity due to excess calories with serious comorbidity Essential hypertension Reversible cerebrovascular vasoconstriction syndrome Abnormal nuclear cardiac imaging test Subarachnoid bleed Right anterior shoulder pain Acute sinusitis, unspecified Neck pain Simple endometrial hyperplasia without atypia Screening for breast cancer Amyloid pterygium of right eye Deaf DJD (degenerative joint disease) of knee Back problem Arthritis Home Medications ?Medication ?Instructions ?Recorded ?Last Taken ?Type latanoprost 0.005 % eye drops 1 drp EACH EYE QHS GLAUCOMA 07/28/16 Unknown History multivitamin with folic acid 400 1 tab PO DAILY supplement 07/28/16 Unknown History mcg tablet timolol maleate 0.5 % eye drops 1 drp EACH EYE BID glaucoma 07/28/16 Unknown History levocetirizine 5 mg tablet 5 mg PO QHS PRN allergy symptoms 05/30/18 Unknown Rx #90 tabs montelukast 10 mg tablet 10 mg PO QHS asthma #90 tabs 12/12/18 Unknown Rx calcium 333 mg-vit D3 200 1 tab PO DAILY NOT TAKING 02/15/19 Unknown History unit-magnesium 133 mg-zinc 5 mg tablet Held on 09/03/24. Instructions: MD Ordered Oral appliance #1 ea 12/06/22 Unknown Rx ferrous sulfate 325 mg (65 mg 325 mg PO DAILY supplement 06/13/23 Unknown History iron) tablet (Feosol) lidocaine 5 % topical patch 1 patch topical QDAY pain 10/20/23 Unknown History oxycodone-acetaminophen 5 mg-325 1 tab PO BID PRN painful procedure 10/20/23 Unknown History mg tablet Held on 09/03/24. Instructions: MD Ordered cyanocobalamin (vitamin B-12) 500 250 mcg PO QDAY supplement 06/07/24 Unknown History mcg lozenges (Vitamin B-12) omega-3 fatty acids 1,000 mg 1,000 mg PO TID supplement 06/07/24 Unknown History capsule pregabalin 100 mg capsule 100 mg PO TID NOT TAKING 06/07/24 Unknown History Held on 09/03/24. Instructions: MD Ordered torsemide 20 mg tablet 20 mg PO QDAY diuretic 06/07/24 Unknown History acetaminophen 500 mg capsule 1,000 mg PO Q8H PAIN 09/03/24 Unknown History diclofenac sodium 75 mg 75 mg PO .ARTURO pain 09/03/24 Unknown History tablet,delayed release oxycodone 10 mg tablet 5 - 10 mg PO Q4H PRN PRN (5mg for 09/03/24 Unknown History pain4-6) & (10mg for pain 7-10) verapamil 120 mg 24 hr 120 mg PO BID treat high blood 09/03/24 Unknown History capsule,extended release pressure Allergy/AdvReac Type Severity Reaction Status Date / Time mushroom Allergy Anaphylaxis Verified 06/07/24 14:31 Food Allergies: Uncoded AdvReac Unknown PT UNSURE Verified 06/07/24 14:31 OF REACTION Family History Father Heart disease Son Asthma Mother Arthritis Aunt Diabetes Surgical History (Updated 09/04/24 @ 08:[address] Lacy Love DO) S/P lumbar fusion Hx of toe surgery History of appendectomy Social History (Updated 09/04/24 @ 10:[address] 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 number of children: 3 pets and animals: Yes (son has no animals but, dtr has 2 cats and 2 dogs. ) Smoking Status: Never smoker second hand exposure: No alcohol intake: never substance use type: does not use caffeine: Yes what type of physical activity do you participate in: none seatbelt use: always Homelessness:: Sheltered ROS Review of Systems ROS Unobtainable: other Details: ROS done through an correctional medicine physician. ; Denies due to encephalopathy, due to endotracheal tube, due to mental condition or due to mental status Constitutional Constitutional: Reports difficulty sleeping and weakness; Denies anorexia, chills, fever(s) or frequent falls Eyes Eyes: Denies blurry vision, change in vision, eye pain or loss of vision ENT HEENT: Denies abnormal hearing, dysphagia, headache(s), hearing loss, nasal congestion or sore throat Cardiovascular Cardiovascular: Reports lightheadedness; Denies chest pain, dyspnea on exertion, edema, orthopnea, palpitations, paroxysmal nocturnal dyspnea or syncope Respiratory/Chest Respiratory/Chest: Denies cough, dyspnea, shortness of breath at rest, shortness of breath with exertion or wheezing Gastrointestinal Gastrointestinal: Reports constipation; Denies abdominal pain, diarrhea, dyspepsia, hematemesis, hematochezia, nausea or vomiting Genitourinary Genitourinary: Denies dysuria, hematuria, nocturia, urinary frequency, urinary hesitancy, urinary incontinence or urinary urgency Musculoskeletal Musculoskeletal: Reports back pain, difficulty walking, muscle weakness, radiating pain into limb, stiffness and other Details: weakness in the legs, R>L ; Denies joint pain, joint swelling or neck pain Integumentary Integumentary: Denies alopecia, hirsutism, jaundice or rash Neurologic Neurologic: Reports focal weakness and paresthesias; Denies confusion, disequilibrium, dizziness, headache(s), seizures or tremor(s) Psychiatric Psychiatric: Denies anxiety, depression, homicidal ideation or suicidal ideation Endocrine Endocrinology: Denies change in body appearance, polydipsia or polyuria Hematologic/Lymphatic Hematologic/Lymphatic: Denies easy bleeding, easy bruising or lymphadenopathy Allergic/Immunologic Allergic/Immunologic: Reports rhinitis; Denies eczemia or asthma Vital Signs Vital Signs Vital Signs: 09/03/24 22:24 09/03/24 23:49 09/04/24 06:00 Temperature 97.9 F 98.9 F Temperature Source Temporal Oral Pulse Rate 77 87 Pulse Rate [Lying] Pulse Rate [Sitting (for 1 minute prior to obtaining)] Pulse Rate [Standing (for 1 minute prior to obtaining)] Respiratory Rate 16 16 Respiratory Effort Normal Non-Labored Respiratory Depth Normal Respiratory Pattern Normal Blood Pressure 111/63 112/74 Blood Pressure [Lying] Blood Pressure [Sitting (for 1 minute prior to obtaining)] Blood Pressure [Standing (for 1 minute prior to obtaining)] Blood Pressure Mean 79 86 Blood Pressure Mean [Lying] Blood Pressure Mean [Sitting (for 1 minute prior to obtaining)] Blood Pressure Mean [Standing (for 1 minute prior to obtaining)] Blood Pressure Source Monitor Monitor Blood Pressure Position Semi-Fowlers Sitting Blood Pressure Location Right Arm Left Arm Pulse Ox 95 97 Oxygen Delivery Method Room Air Room Air Room Air 09/04/24 07:00 Temperature Temperature Source Pulse Rate Pulse Rate [Lying] 84 Pulse Rate [Sitting (for 1 minute prior to obtaining)] 90 Pulse Rate [Standing (for 1 minute prior to obtaining)] 108 H Respiratory Rate Respiratory Effort Respiratory Depth Respiratory Pattern Blood Pressure Blood Pressure [Lying] 93/37 L Blood Pressure [Sitting (for 1 minute prior to obtaining)] 112/74 Blood Pressure [Standing (for 1 minute prior to obtaining)] 117/74 Blood Pressure Mean Blood Pressure Mean [Lying] 55 Blood Pressure Mean [Sitting (for 1 minute prior to obtaining)] 86 Blood Pressure Mean [Standing (for 1 minute prior to obtaining)] 88 Blood Pressure Source Blood Pressure Position Blood Pressure Location Pulse Ox Oxygen Delivery Method Weight Weight: 218 lb 0.595 oz Body Mass Index (BMI) 42.5 Physical Exam Const alert, oriented x3 and no apparent distress Constitutional Narrative: Making good eye contact, appropriate. We are communicating through an online correctional medicine physician. Very pleasant and smiling General Appearance: cooperative and comfortable HEENT normocephalic HEENT Narrative: Dry MM. No evidence of thrush. Tongue protrudes on the midline. Plalate elevates symmetrically. Congenital deafness. Head and Scalp: atraumatic Eyes PERRL, EOMs intact bilaterally, conjunctivae normal and no scleral icterus Eyes Narrative: No discharge from the eyes and no mattering of the eyelashes. General Eye: normal appearance of both eyes Neck no lymphadenopathy, supple, no JVD and no carotid bruits General: trachea midline Chest Chest: symmetrical chest wall rise Resp normal respiratory effort, no use of accessory muscles and clear to auscultation bilaterally Resp Narrative: Not tachypneic. Breathing is not labored. Mildly diminished throughout, possibly related to decreased effort. No cough. Cardio regular rate, regular rhythm, S1 normal heart sound, S2 normal heart sound, no murmurs, no rub and no gallops Cardio Narrative: No ectopy GI normal to inspection, nondistended, normoactive bowel sounds and soft to palpation GI Narrative: No guarding with palpation. no CVA tenderness Narrative: Denies dysuria. Had a Rojo at the previous hospital. Back/Spine Back/Spine Narrative: Tenderness around the lumbar incision and with palpation of the lumbar paravertebral muscles. Extremity no clubbing, cyanosis or edema Extremity Narrative: Calves are a little tender when I squeeze them. No pain with dorsiflexion of the foot. No clubbing. No cyanosis. Mild ankle edema. MANDI hose in place. Skin Skin Narrative: No rashes, no skin breakdown. The incision is intact with olga in places. No purulent DC. There is a small amount of serous drainage from a previous drain site. No ramy-incisional erythema. General Skin Exam: no breakdown Neuro oriented x3 and moves all extremities Neuro Narrative: Weakness of the RLE when compared to the Left. Having paresthesias in the legs, R>L. Radicular pain in the RLE but, better than prior to the surgery. No facial asymmetry. Pupils are equal round reactive to light and accommodation. She is deaf. Psych affect normal Psych Narrative: Appropriate, making good eye contact. We are speaking through a correctional medicine physician. she is pleasant and cooperative. Smiling, no agitatin, appears comfortable sitting in the WC. Not fidgeting. Attitude: calm and engaged Activity / Motor Behavior: appropriate eye contact; Negative for psychomotor agitation, psychomotor slowing or fidgetting Thought Process: normal thought process Results Lab / Micro Data 09/04/24 05:10 09/04/24 05:10 Labs: Laboratory Results - last 24 hr 09/04/24 05:10: Sodium 139, Potassium 3.8, Chloride 104, Carbon Dioxide 26.4, Anion Gap 9, BUN 7, Creatinine 0.49 L, Estim Creat Clear Calc 124.04, Est GFR (MDRD) Non-Af 106, BUN/Creatinine Ratio 15.2, Glucose 108 H, Calcium 8.7, Phosphorus 3.3, Magnesium 2.2, Total Bilirubin 0.52, AST 16, ALT 13, Alkaline Phosphatase 54, Total Protein 6.2, Albumin 3.3 L, Globulin 2.9, Albumin/Globulin Ratio 1.2 Assessment & Plan Assessment/Plan (1) Physical debility: (2) S/P lumbar fusion: (3) Other acute postprocedural pain: (4) Acute blood loss as cause of postoperative anemia: (5) Obesity due to excess calories with serious comorbidity: QUALIFIERS: Obesity classification: adult class 3 (BMI >= 40) Body mass index: BMI 40.0-44.9 Qualified Code(s): E66.01 - Morbid (severe) obesity due to excess calories; Z68.41 - Body mass index [BMI] 40.0-44.9, adult (6) LEANN (obstructive sleep apnea): (7) Essential hypertension: (8) Deaf: QUALIFIERS: Laterality: bilateral Qualified Code(s): H91.93 - Unspecified hearing loss, bilateral PLAN: Plan PLAN PT for gait stability OT for ADL's ST for evaluation Analgesics as needed Bowel protocol Fall precautions Assess for Anxiety/Depression GI prophylaxis -not necessary at this time. She has no history of peptic ulcer disease and she denies nausea/vomiting/epigastric pain/heartburn. DVT prophylaxis with MANDI hose/SCDs/ambulation. Will need to communicate with Dr. Lang's office to see when it is okay to start pharmacologic DVT prophylaxis. Follow up with Dr. Augustin send Dr. Lang following DC from Rehab AM lab including CMP, CBC, Mag and Phos-all personally reviewed Schedule tramadol 50 mg p.o. 3 times daily and continue oxycodone every 4 hours as needed. 200 mg of gabapentin at at bedtime for poor sleep quality secondary to pain radiating into the R leg. No NSAID's Wear brace when out of bed No bending, twisting or lifting > 10 lbs. Encouraged her to increase fluid intake. Hold the iron supplement until she is having regular BM's Continue stool softeners and give laxatives today. Obtain records from Dr. Augustin. Weight loss advised....should be easier for her when she is able to be active again. Has had limited mobility and has not been able to exercise due to severe back and radicular pain. Start Cale for healing. Charges/Coding Visit Charges Inpatient E&M: 36744 Init Hosp L2
[2024-09-04] MEDS: Lidocaine 5% Patch 1 PATCH TOPICAL (07:59)
[2024-09-04 08:16] LABS: Hematocrit 25.2 % (37-47); Hemoglobin 8.2 g/dL (12.0-15.0); Immature Granulocytes Count 0.040 X10^3/uL (0.0-0.0); Mean Corp Hgb Conc 32.5 g/dL (32-36); Mean Corpuscular Volume 98.4 fL (81-99); Mean Platelet Vol. 9.8 fl (6.2-12.0); NRBC Flagged by Analyzer 0 % (0-5); Platelet Count 243 K/mm3 (150-450); RBC Distribution Width CV 13.4 % (11.6-14.6); RBC Distribution Width SD 48.3 fl (35.1-43.9); Red Blood Count 2.56 M/mm3 (4.2-5.4); White Blood Count 14.0 K/mm3 (4.4-11.0)
[2024-09-04 10:01] VITALS: O2SAT 95
--- NOTE | 2024-09-04 11:37 | PCM.RU.PYE ---
Admission Information Primary Diagnosis:: Debility secondary to lumbar decompression and fusion Status Changes from Prescreening?: No changes Identified Actual Problem List:: Skin Intergrity, Pain, ALteration in Cmfrt, Bowel, Constipation, Alteration in Sleep, Mobility Impaired, Self Care Deficit, BP, Hypertension, Fluid Change-Dehydration and Alteration-Leisure Activ. Potential Problem List:: DVT, Bleeding, Infection, UTI, Aspiration, Falls, Skin Integrity and Depression Risk of Complications DVT: MANDI Hose and Sequential Compression Device Bleeding: Monitor Lab Values, Nursing to Teach Precautions for anti-coagulation therapy., Wound, if applicable, to be assessed every shift. and Stroke patients assessed for lethargy or change in status. Infection: Clinical Staff to Monitor for S/S of infection: and S/S of infection include fever, redness, warmth, etc. Urinary Tract Infection: Monitor for frequency, burning, discomfort, or incontinence. and Nursing will obtain urine sample for urinalysis and C&S when ordered. Aspiration: Clinical staff will monitor for coughing, drooling, congestion., Speech will evaluate swallowing and dsyphasia. and Nursing will monitor patient swallowing during meals. Falls: Patient will be evaluated for Fall Precautions and Patient will be placed on Fall Precautions as indicated per protocol. Skin Breakdown: Nursing will assess skin daily using assessment tool. and Nursing will place on Skin Breakdown Precautions as indicated. Pain: Clinical staff will assess patient's pain level per protocol., Medications will be given, if needed, and the pain level reassessed. and Other methods: Massage, distraction, decrease stimulus, etc. used PRN. Plan of Care Patient requires physician specializing in physical medicine and rehab oversight to provide close medical supervision of rehab issues including: Pain Management, Sleep Problems, Bowel and Bladder, Medical and co-morbidity Management, DVT prophylaxis, Rehabilitation Leadership and Coordination of treatment team Patient needs Physical Therapy: For a minimum of 1 hour and At least 5 out of 7 days Patient needs Physical Therapy to improve:: Mobility, Strengthening, Transfers, Stretching, ROM, Endurance, Stairs, Gait and Balance Patient needs Occupational Therapy: For a minimum of 1 hour and At least 5 out of 7 days Patient needs Occupational Therapy to improve ADL's incl.: Eating, Grooming, Bathing, Dressing, Toileting, Toilet transfers, Community Reintegration, Higher functioning activities, Household tasks, Adaptive Equipment, Splinting and Other activities as determined Patient requires 24/7 Rehabilitation Nursing for: Pain Issues, Identifying and preventing risk factors, Monitoring and reporting current medical conditions, Assisting with ambulation, transfer, and all ADL's, Teaching patients about disease process and medications, Family teaching, Providing safe environment, Bowel and Bladder Issues, Skin integrity and Medication Management Patient needs Emergency Department Technician/ Case Management for: Discharge Planning, Arranging Home Equipment or Services and Family Interventions Patient needs Dietary and Nutrition Services for: Adequate Nutrition, Nutritional Supplements and Nutritional Education Goals Goals Patient will remain: free from falls Patient will perform eating at: MOD I level of assist. Patient will perform bed mobility at: MOD I level of assist. Patient will complete transfers from bed to chair at: MOD I level of assist. Patient will ambulate: - (250 feet with least restrictive device and supervision on various surfaces) Patient will complete upper body dressing at: MOD I level of assist. Patient will complete lower body dressing at: MOD I level of assist. (With adaptive equipment as needed) Patient will complete toilet transfer at: MOD I level of assist. Patient will complete toileting at: MOD I level of assist. Patient will perform bathing at: - (Upper body bathing independently and lower body bathing at mod I with adaptive equipment as needed) Patient will perform Tub/Shower transfer at: - (Supervision) Patient will complete grooming at: MOD I level of assist. (While standing at the sink) Patient will complete home management skills at: MOD I level of assist. Patient will achieve: - (4 steps with 2 handrails at stand assist to allow access to her son's home) Patient will have pain level of: of 3 or less Patient's skin will: remain intact Patient will receive: adequate nutrition. Discharge Planning Pt Prognosis for Sig. Practical Improv. w/in Reasonable Time: Good Estimated Length of stay (days): 21 Anticipated D/C Destination: Home w/ family or friends Was Preadmission Assessment Accurate?: Yes
[2024-09-04 13:31] VITALS: BP 95/48; PULSE 83; RESP 16; TEMP 36.6; O2SAT 100
--- NOTE | 2024-09-04 14:21 | NURSING ---
Sotero for Dr. Gutierres's office asking with pt can have DVT prophylaxis. Waiting for return call.
[2024-09-04 15:55] LABS: Mucous, Urine 0 SEEN /hpf (<or=2+); Red Blood Cells-Urine 0 SEEN /hpf (0-5); Squamous Epithelial Cells - UA 0 SEEN /hpf (5-10)
[2024-09-04] MEDS: Juven (unflavored) Packet 1 PACKET PO (16:17)
[2024-09-04 16:28] LABS: Color, Urine Yellow (Yellow); Glucose, Dipstick Normal (Normal); Ketone-Dipstick Negative (Negative); Leukocyte Esterase-Dipstick Negative /ul (Negative); Nitrite-Dipstick Negative (Negative); Occult Blood-Urine Negative /ul (Negative); Protein-Dipstick 15 mg/dl (Negative); Specific Gravity, Urine 1.010 (1.002-1.030); Urine Bilirubin Dipstick Negative (Negative)
[2024-09-04] MEDS: 0.9% Normal Saline (1000mL) 1,000 ML 500 ML IV (17:58)
[2024-09-04 18:00] VITALS: BP 91/53; PULSE 65; RESP 16; TEMP 36.4; O2SAT 99
[2024-09-04 21:50] VITALS: BP 100/60
[2024-09-04] MEDS: Latanoprost 0.005% 1 Bottle 1 DRP EACH EYE ×2 (21:54)
[2024-09-05 06:00] VITALS: BP 129/74; PULSE 80; RESP 16; TEMP 36.6; O2SAT 97
[2024-09-05 06:30] VITALS: BP 105/50; BP 106/74; BP 129/74; PULSE 80; PULSE 84
--- NOTE | 2024-09-05 07:57 | PCM.PROGNOTE ---
Subjective Subjective Afebrile VSS - Maintaining appropriate oxygen saturation on RA Oral intake - FOOD good FLUIDS good Had 2 bowel movements yesterday following laxatives. Discussed with nursing -BP low last evening. C/O dizziness. Received a 1 L bolus of NS. BP today is 129/74. Orthostatics negative today. Reviewed the THERAPY notes Medication list reviewed. Urine has 0 WBCs, no bacteria and 0 RBCs. Denies pain....tells me that she is sore in her low back. Feels the pain management is adequate. Slept better last night. No CP, SOB, dysuria, abd pain, N/V. She has some radicular pain in her legs but, it is getting better and not worse. It is much better than prior to the surgery. Objective Data Objective Data Vital Signs: Vital Signs Temp Pulse Resp BP Pulse Ox O2 Del Method 98 F 80 16 105/50 L 97 Room Air 09/05/24 06:00 09/05/24 06:30 09/05/24 06:00 09/05/24 06:30 09/05/24 06:00 09/05/24 06:00 Oxygen Delivery Method Room Air Weight: 218 lb 4.122 oz Body Mass Index (BMI) 42.5 Intake & Output: Intake and Output for Last 24 Hours 09/03/24 09/04/24 09/05/24 23:59 23:59 23:59 Intake Total 2452 / 2452 Output Total 1050 / 1450 800 / 800 Balance 1402 / 1002 -800 / -800 Lab / Micro Data 09/04/24 05:10 09/04/24 05:10 Labs: Laboratory Results - last 24 hr 09/04/24 05:10: WBC 14.0 H, RBC 2.56 L, Hgb 8.2 L, Hct 25.2 L, MCV 98.4, MCH 32.0, MCHC 32.5, RDW Std Deviation 48.3 H, RDW Coeff of Luther 13.4, Plt Count 243, MPV 9.8, Immature Gran % (Auto) 0.300, Neut % (Auto) 77.8 H, Lymph % (Auto) 12.6 L, Davie % (Auto) 6.9, Eos % (Auto) 2.1, Baso % (Auto) 0.3, Absolute Neuts (auto) 10.9 H, Absolute Lymphs (auto) 1.77, Nucleated RBC % 0 09/04/24 15:45: Urine Color Yellow, Urine Clarity Clear, Urine pH 6.0, Ur Specific Harper 1.010, Urine Protein 15 H, Urine Glucose (UA) Normal, Urine Ketones Negative, Urine Occult Blood Negative, Urine Nitrite Negative, Urine Bilirubin Negative, Urine Urobilinogen Normal, Ur Leukocyte Esterase Negative, Urine RBC 0 SEEN, Urine WBC 0 SEEN, Ur Squamous Epith Cells 0 SEEN, Urine Bacteria 0 SEEN, Urine Mucus 0 SEEN Social Homelessness:: Sheltered Physical Exam Const alert and no apparent distress Constitutional Narrative: Smiling and pleasant. She is not grimacing, even with getting out of bed. General Appearance: cooperative HEENT moist oral mucous membranes Resp normal respiratory effort and clear to auscultation bilaterally Effort and Inspection: Negative for tachypneic Cardio regular rate, regular rhythm, no murmurs, no rub and no gallops GI normal to inspection, nondistended, normoactive bowel sounds, soft to palpation and non-tender Extremity no calf tenderness Extremity Narrative: MANDI hose are in place. General Extremity: Negative for edema Skin Skin Narrative: Incision is intact with no dehiscence, no ramy-incisional erythema and no purulent DC. Small amount of serous DC from previous drain site. General Skin Exam: no breakdown Rashes: no rashes Assessment & Plan Assessment/Plan (1) Physical debility: (2) S/P lumbar fusion: (3) Other acute postprocedural pain: (4) Acute blood loss as cause of postoperative anemia: (5) Obesity due to excess calories with serious comorbidity: QUALIFIERS: Obesity classification: adult class 3 (BMI >= 40) Body mass index: BMI 40.0-44.9 Qualified Code(s): E66.01 - Morbid (severe) obesity due to excess calories; Z68.41 - Body mass index [BMI] 40.0-44.9, adult (6) LEANN (obstructive sleep apnea): (7) Essential hypertension: (8) Deaf: QUALIFIERS: Laterality: bilateral Qualified Code(s): H91.93 - Unspecified hearing loss, bilateral (9) Constipation: QUALIFIERS: Constipation type: drug induced constipation Qualified Code(s): K59.03 - Drug induced constipation (10) Hypotension due to hypovolemia: PLAN: Plan 1. Continue therapy 2. No changes to the drug regimen today. 3. BP is still on the low side today. She is on Verapamil SR 120 mg BID. No hx of AF or tachydysrhythmia in documentation we received. Will decrease the Verapamil to once a day. Lower BP may be related to anemia/dehydration. Continue to hold Verapamil if the systolic is less than 110 systolic. 4. Recheck a HH on Tuesday. Charges/Coding Visit Charges Inpatient E&M: 10946 [facility] Hosp L1
[2024-09-05] MEDS: Juven (unflavored) Packet 1 PACKET PO ×2 (08:04→17:28)
[2024-09-05] MEDS: Senna/Docusate Sodium 1 Tablet 2 TABLET PO ×2 (08:05→21:04)
[2024-09-05] MEDS: Lidocaine 5% Patch 1 PATCH TOPICAL (08:05)
[2024-09-05] MEDS: Timolol 0.5% 5ML OPTH.BTL 1 DRP EACH EYE ×2 (08:14→17:28)
--- NOTE | 2024-09-05 08:35 | NURSING ---
AM med pass completed pt. preferred method of communication at this time was blanche lezama board.
--- NOTE | 2024-09-05 15:20 | CHAPLAIN ---
Type of Pastoral Visit ___ Initial Visit ___ Follow-up Visit ___ On-call Visit ___ General Patient Visit ___ Spiritual Assessment ___ Family Conference ___ Bereavement ___ Rapid Response ___ Code Blue ___ Other (describe below) Pastoral Care Referral From ___ Patient ___ Family ___ Nurse ___ Physician ___ Photographer ___ An/Syq 13 Nav/C2 Operator ___ Other (describe below) Sacrament/Intervention ___ Active listening ___ Anointing ___ Lutheran ___ Bereavement ___ Communion ___ Carmelina exploration ___ ___ Life review ___ Prayer ___ Reconciliation ___ Sacrament of Sick ___ Supportive presence ___ Wedding ___ Other (describe below) Pastoral Comments two attempts to visit this patient today but she was either sleeping or having therapy at those times
[2024-09-05 17:42] VITALS: BP 106/55; PULSE 82; RESP 17; TEMP 36.8; O2SAT 97
[2024-09-05] MEDS: Latanoprost 0.005% 1 Bottle 1 DRP EACH EYE (21:04)
[2024-09-06 06:28] VITALS: BP 111/59; PULSE 88; RESP 16; TEMP 36.7; O2SAT 99
--- NOTE | 2024-09-06 08:25 | CASEMGMT ---
Social Work IDT met with patient for Team meeting. Left VM with dtr. Used cook enchilada to assist with communication during Team meeting. Discussed patient's progress in PT/OT/SN/MD. Educated to Medicare benefit and once days are determined, this worker will update pt. SW inquired about DC plan. Pt stated she has two options: live with son in trailer with 4 OBEY, but has a high bath tub; or live with dtr in two story home with steps to the second floor, but a better bathroom set up. Therapy will continue working on steps and bathroom tasks. This worker will assist with DC planning. Will ReTeam weekly. Laura Foy ETHNOLOGY PROFESSOR LAND TITLE EXAMINER
[2024-09-06] MEDS: Senna/Docusate Sodium 1 Tablet 2 TABLET PO ×2 (08:41→20:22)
[2024-09-06] MEDS: Juven (unflavored) Packet 1 PACKET PO ×2 (08:42→16:46)
[2024-09-06] MEDS: Lidocaine 5% Patch 1 PATCH TOPICAL (08:42)
[2024-09-06] MEDS: Timolol 0.5% 5ML OPTH.BTL 1 DRP EACH EYE ×2 (08:42→16:47)
--- NOTE | 2024-09-06 12:51 | CASEMGMT ---
Social Work Dtr returned this worker's call and SW proided pt update on Team meeting and pt's LOF with therapy. Explained Medicare coverage and this worker's assistance with DC planning. Dtr confirmed it will depend on pt's ability to complete steps, as to which house she DC's to. Dtr and son both work during the day, thus, pt will be home alone. Of note: pt's son's trailer does not have a/c. SW educated to weekly Team meetings and time. Dtr appreciative. SW will continue to follow. Laura Foy BURNT LIME DRAWER SOFT SUGAR CUTTER
[2024-09-06 13:51] VITALS: O2SAT 99
--- NOTE | 2024-09-06 15:18 | NURSING ---
white board used for short communication p/pt request. Ipad used during team meeting and while with therapy
[2024-09-06 17:44] VITALS: BP 109/52; PULSE 81; RESP 16; TEMP 36.9; O2SAT 97
[2024-09-06] MEDS: Latanoprost 0.005% 1 Bottle 1 DRP EACH EYE (20:21)
[2024-09-06] MEDS: 0.9% Saline Lock 10 ML Syringe IV (20:36)
[2024-09-06 22:00] VITALS: PULSE 81; RESP 16; O2SAT 81
[2024-09-07 05:45] LABS: Hematocrit 24.0 % (37-47); Hemoglobin 7.8 g/dL (12.0-15.0)
[2024-09-07 06:00] VITALS: BP 118/62; PULSE 75; RESP 15; TEMP 36.8; O2SAT 96; BMI 42.7
[2024-09-07] MEDS: Senna/Docusate Sodium 1 Tablet 2 TABLET PO ×2 (07:52→22:25)
[2024-09-07] MEDS: Lidocaine 5% Patch 1 PATCH TOPICAL (07:53)
[2024-09-07] MEDS: Juven (unflavored) Packet 1 PACKET PO ×2 (07:54→16:28)
[2024-09-07] MEDS: Timolol 0.5% 5ML OPTH.BTL 1 DRP EACH EYE ×2 (07:54→16:28)
[2024-09-07 09:14] LABS: Iron 28 ug/dL (50-170); Iron Binding Capacity,Unsat 113 ug/dL (228-428)
[2024-09-07 09:18] LABS: Iron Binding Capacity,Total 141 ug/dL (250-450)
--- NOTE | 2024-09-07 14:41 | CHAPLAIN ---
Type of Pastoral Visit _x__ Initial Visit ___ Follow-up Visit ___ On-call Visit ___ General Patient Visit ___ Spiritual Assessment ___ Family Conference ___ Bereavement ___ Rapid Response ___ Code Blue ___ Other (describe below) Pastoral Care Referral From _x__ Patient ___ Family ___ Nurse ___ Physician ___ Global Commodity Manager ___ Molder Apprentice ___ Other (describe below) Sacrament/Intervention _x__ Active listening ___ Anointing ___ Hindu ___ Bereavement ___ Communion _x__ Carmelina exploration ___ ___ Life review _x__ Prayer ___ Reconciliation ___ Sacrament of Sick _x__ Supportive presence ___ Wedding ___ Other (describe below) Pastoral Comments patient is awake and gives indication that she is deaf while holding up a white board; communication continues with white board and responses from the patient; pt is offered support and questioned about her status and her needs; pt lives with two adult children and takes turns with them; pt is of the [employer] [place] and has missed islam services for a long time but has a goal to return; pt gives health history over the last few years; pt welcomes presence and prayer for support today; therapist came to room and is ready to lead a session of therapy; overall the patient presents with a positive attitude;
[2024-09-07] MEDS: 0.9% Saline Lock 10 ML Syringe IV (16:29)
[2024-09-07 17:57] VITALS: BP 116/61; PULSE 79; RESP 17; TEMP 36.2; O2SAT 97
[2024-09-07] MEDS: Latanoprost 0.005% 1 Bottle 1 DRP EACH EYE (22:24)
[2024-09-08 06:00] VITALS: BP 134/71; PULSE 86; RESP 16; TEMP 36.4; O2SAT 98
[2024-09-08 07:06] LABS: Hematocrit 24.9 % (37-47); Hemoglobin 8.2 g/dL (12.0-15.0)
[2024-09-08] MEDS: Timolol 0.5% 5ML OPTH.BTL 1 DRP EACH EYE ×2 (08:00→16:25)
[2024-09-08] MEDS: Senna/Docusate Sodium 1 Tablet 2 TABLET PO (08:01)
[2024-09-08] MEDS: Juven (unflavored) Packet 1 PACKET PO ×2 (08:01→16:25)
[2024-09-08] MEDS: Lidocaine 5% Patch 1 PATCH TOPICAL (08:03)
[2024-09-08 18:00] VITALS: BP 119/60; PULSE 89; RESP 17; TEMP 36.4; O2SAT 99
[2024-09-08] MEDS: Latanoprost 0.005% 1 Bottle 1 DRP EACH EYE (20:56)
[2024-09-08] MEDS: 0.9% Saline Lock 10 ML Syringe IV (21:02)
[2024-09-09 06:00] VITALS: BP 127/61; PULSE 105; RESP 20; TEMP 37; O2SAT 98
[2024-09-09] MEDS: Juven (unflavored) Packet 1 PACKET PO ×2 (08:10→16:39)
[2024-09-09] MEDS: Timolol 0.5% 5ML OPTH.BTL 1 DRP EACH EYE ×2 (08:10→16:39)
[2024-09-09] MEDS: Senna/Docusate Sodium 1 Tablet 2 TABLET PO (08:12)
[2024-09-09] MEDS: Lidocaine 5% Patch 1 PATCH TOPICAL (08:14)
[2024-09-09] MEDS: 0.9% Saline Lock 10 ML Syringe IV (15:27)
[2024-09-09 18:00] VITALS: BP 129/71; PULSE 80; RESP 17; TEMP 36.7; O2SAT 99
[2024-09-09] MEDS: Latanoprost 0.005% 1 Bottle 1 DRP EACH EYE (22:30)
[2024-09-10 05:39] VITALS: BP 140/73; PULSE 80; RESP 18; TEMP 36.1; O2SAT 97
[2024-09-10] MEDS: Timolol 0.5% 5ML OPTH.BTL 1 DRP EACH EYE ×2 (07:45→17:22)
[2024-09-10] MEDS: Senna/Docusate Sodium 1 Tablet 2 TABLET PO (07:46)
[2024-09-10] MEDS: Juven (unflavored) Packet 1 PACKET PO ×2 (07:46→17:22)
--- NOTE | 2024-09-10 12:22 | PCM.PROGNOTE ---
Subjective Subjective Afebrile VSS - Maintaining appropriate oxygen saturation on RA Oral intake - FOOD good FLUIDS good Discussed with nursing - no problems that need addressed. The last bowel movement recorded was 09/05/2024. Reviewed the THERAPY notes Medication list reviewed. Has not had any as needed oxycodone since 10-01. Hemoglobin on 09/08/24 was stable at 8.2. Iron saturation was normal at 19.9. Hemoccult stool on 09/07/2024 was positive. Continues to get tramadol 50 mg 3 times daily and Tylenol 1 g p.o. every 8. she denies pain.....she tells me that she has some back soreness she is sleeping well at night. She denies headache, cephalgia, chest pain, shortness of breath, racing heart, nausea/vomiting/abdominal pain/constipation, dysuria. She has had some cramps in her calves occasionally but has no cramps at the present time. Objective Data Objective Data Vital Signs: Vital Signs Temp Pulse Resp BP Pulse Ox O2 Del Method 97.0 F L 80 18 140/73 H 97 Room Air 09/10/24 05:39 09/10/24 05:39 09/10/24 05:39 09/10/24 05:39 09/10/24 05:39 09/10/24 05:39 Oxygen Delivery Method Room Air Weight: 218 lb 11.177 oz Body Mass Index (BMI) 42.7 Intake & Output: Intake and Output for Last 24 Hours 09/08/24 09/09/24 09/10/24 23:59 23:59 23:59 Intake Total 950 / 950 1800 / 1800 620 / 620 Output Total 1250 / 1550 1700 / 1700 200 / 200 Balance -300 / -600 100 / 100 420 / 420 Lab / Micro Data 09/08/24 06:29 09/04/24 05:10 Micro: Microbiology 09/07/24 18:48 Stool Stool Occult Blood (GEOVANNY) - Final Occult Blood Positive Social Homelessness:: Sheltered Physical Exam Const alert and no apparent distress Constitutional Narrative: Smiling and pleasant. General Appearance: cooperative HEENT moist oral mucous membranes Resp normal respiratory effort and clear to auscultation bilaterally Effort and Inspection: Negative for tachypneic Cardio regular rate, regular rhythm, no murmurs, no rub and no gallops GI normal to inspection, nondistended, normoactive bowel sounds, soft to palpation and non-tender Extremity no calf tenderness Extremity Narrative: MANDI hose are in place. General Extremity: Negative for edema Skin Skin Narrative: Incision is intact with no dehiscence, no ramy-incisional erythema and no purulent DC. Small amount of serous DC from previous drain site. The swelling around the incision has significantly decreased since admission. General Skin Exam: no breakdown Rashes: no rashes Assessment & Plan Assessment/Plan (1) Physical debility: (2) S/P lumbar fusion: (3) Other acute postprocedural pain: (4) Acute blood loss as cause of postoperative anemia: (5) Obesity due to excess calories with serious comorbidity: QUALIFIERS: Obesity classification: adult class 3 (BMI >= 40) Body mass index: BMI 40.0-44.9 Qualified Code(s): E66.01 - Morbid (severe) obesity due to excess calories; Z68.41 - Body mass index [BMI] 40.0-44.9, adult (6) LEANN (obstructive sleep apnea): (7) Essential hypertension: (8) Deaf: QUALIFIERS: Laterality: bilateral Qualified Code(s): H91.93 - Unspecified hearing loss, bilateral (9) Constipation: QUALIFIERS: Constipation type: drug induced constipation Qualified Code(s): K59.03 - Drug induced constipation PLAN: Plan 1. Continue therapy 2. Change tramadol to as needed. Continue acetaminophen 1 g p.o. every 8 hours. Charges/Coding Visit Charges Inpatient E&M: 27275 Subs Hosp L1
[2024-09-10 17:13] VITALS: BP 114/62; PULSE 74; RESP 14; TEMP 35.8; O2SAT 97
[2024-09-10] MEDS: Latanoprost 0.005% 1 Bottle 1 DRP EACH EYE (20:26)
[2024-09-10] MEDS: 0.9% Saline Lock 10 ML Syringe IV (22:15)
--- NOTE | 2024-09-11 00:05 | NURSING ---
98% O2 at hs with cpap
[2024-09-11 06:00] VITALS: BP 123/62; PULSE 72; RESP 18; TEMP 36.4; O2SAT 99
[2024-09-11] MEDS: Senna/Docusate Sodium 1 Tablet 2 TABLET PO ×2 (07:53→21:10)
[2024-09-11] MEDS: Juven (unflavored) Packet 1 PACKET PO ×2 (07:54→16:50)
[2024-09-11] MEDS: Lidocaine 5% Patch 1 PATCH TOPICAL (07:54)
[2024-09-11] MEDS: Timolol 0.5% 5ML OPTH.BTL 1 DRP EACH EYE ×2 (07:54→16:49)
--- NOTE | 2024-09-11 08:17 | CASEMGMT ---
Social Work SW left detailed VM with dtr, as she works full-time, explained IDT is pleased with pt's progress and has no concerns with pt DCing to dtr's 2 story home. Pt is doing well with steps. Offered for dtr to attend therapy session. Offered skilled HHC vs OP therapy at DC and any DME needs. SW to follow up with pt as well to finalize DC for 09/14. Laura Foy MONUMENT MASON DRY STARCH SUPERVISOR
--- NOTE | 2024-09-11 08:41 | PCM.PROGNOTE ---
Subjective Subjective Afebrile Vital signs stable Maintaining appropriate oxygen saturation on room air Last BM was 09/07/24....she got 30 cc MOM yesterday but, no BM. She has been refusing every other dose of Senna. She is taking ferrous sulfate and pain medication that is likely constipating her. c/o pain in the low back radiating into the R thigh last night........took a Tramadol. It relieved the pain. She was transitioned from scheduled Tramadol to PRN Tramadol yesterday. she remains on scheduled Tylenol. Has some tingling in the R anterior thjgh today but, no pain. she does not appear to be in any distress. We communicated through the general freight agent today. She denies lightheadedness, chest pain, cough, shortness of breath, palpitations, nausea/vomiting/abdominal pain, dysuria and calf tenderness. She states her legs felt better last night after she removed the MANID hose. Objective Data Objective Data Vital Signs: Vital Signs Temp Pulse Resp BP Pulse Ox O2 Del Method 97.5 F L 72 18 123/62 H 99 Room Air 09/11/24 06:00 09/11/24 06:00 09/11/24 06:00 09/11/24 06:00 09/11/24 06:00 09/11/24 06:00 Oxygen Delivery Method Room Air Weight: 218 lb 11.177 oz Body Mass Index (BMI) 42.7 Intake & Output: Intake and Output for Last 24 Hours 09/09/24 09/10/24 09/11/24 23:59 23:59 23:59 Intake Total 1800 / 1800 2480 / 2480 560 / 560 Output Total 1700 / 1700 1850 / 1850 400 / 400 Balance 100 / 100 630 / 630 160 / 160 Lab / Micro Data 09/08/24 06:29 09/04/24 05:10 Micro: Microbiology 09/07/24 18:48 Stool Stool Occult Blood (GEOVANNY) - Final Occult Blood Positive Social Homelessness:: Sheltered Physical Exam Const alert and no apparent distress Constitutional Narrative: sitting at the edge of the bed talking with the PT and general freight agent. appears comfortable. She just finished PT and is having some pain and requested a pain pill. General Appearance: cooperative HEENT moist oral mucous membranes Resp clear to auscultation bilaterally Effort and Inspection: Negative for tachypneic Cardio regular rate, regular rhythm and no gallops GI normal to inspection, nondistended, normoactive bowel sounds, soft to palpation and non-tender Extremity no calf tenderness Extremity Narrative: MANDI hose are in place. General Extremity: Negative for edema Skin Skin Narrative: Incision is intact with no dehiscence, no ramy-incisional erythema and no purulent DC. Small amount of serous DC from previous drain site. The swelling around the incision has significantly decreased since admission. General Skin Exam: no breakdown Rashes: no rashes Assessment & Plan Assessment/Plan (1) Physical debility: (2) S/P lumbar fusion: (3) Other acute postprocedural pain: (4) Acute blood loss as cause of postoperative anemia: (5) Obesity due to excess calories with serious comorbidity: QUALIFIERS: Obesity classification: adult class 3 (BMI >= 40) Body mass index: BMI 40.0-44.9 Qualified Code(s): E66.01 - Morbid (severe) obesity due to excess calories; Z68.41 - Body mass index [BMI] 40.0-44.9, adult (6) LEANN (obstructive sleep apnea): (7) Essential hypertension: (8) Deaf: QUALIFIERS: Laterality: bilateral Qualified Code(s): H91.93 - Unspecified hearing loss, bilateral (9) Constipation: QUALIFIERS: Constipation type: drug induced constipation Qualified Code(s): K59.03 - Drug induced constipation PLAN: Plan 1. Continue therapy 2. Encouraged her to take the stool softeners as ordered rather than needing to take laxatives. 3. BMP and CBC in the AM 4. Continue scheduled Tylenol and as needed tramadol. 5. Patient request we discontinue the lidocaine patch. 6. Continue gabapentin 200 mg at bedtime Charges/Coding Visit Charges Inpatient E&M: 34815 [facility] Hosp L1
[2024-09-11 18:00] VITALS: BP 108/59; PULSE 80; RESP 16; TEMP 36.6; O2SAT 97
[2024-09-11] MEDS: Latanoprost 0.005% 1 Bottle 1 DRP EACH EYE (21:06)
--- NOTE | 2024-09-12 00:08 | NURSING ---
Pt c/o numbness & tingling in BLE, states she can't sleep. Administered tramadol prn, pt tolerated well. will reassess pt
[2024-09-12 06:00] VITALS: BP 147/89; PULSE 110; RESP 18; TEMP 36.9; O2SAT 97
[2024-09-12] MEDS: Juven (unflavored) Packet 1 PACKET PO ×2 (08:00→17:36)
[2024-09-12] MEDS: Senna/Docusate Sodium 1 Tablet 2 TABLET PO (08:01)
[2024-09-12] MEDS: Timolol 0.5% 5ML OPTH.BTL 1 DRP EACH EYE ×2 (08:01→17:36)
[2024-09-12 08:19] VITALS: BP 135/70; PULSE 97
--- NOTE | 2024-09-12 08:21 | NURSING ---
During AM Intervention Insights certified court/medical interpreter used for communication. Call started with Integral Ad Scienceui developer designer at [phone] and call ended at [phone].
--- NOTE | 2024-09-12 15:49 | CASEMGMT ---
Social Work SW attempted to speak with pt but pt asleep and not arousable. Laura Foy CUTLERY GRINDER ITINERANT TEACHER ASSISTANT
[2024-09-12 17:05] VITALS: BP 112/66; PULSE 78; RESP 16; TEMP 36.7; O2SAT 98
--- NOTE | 2024-09-12 20:06 | NURSING ---
Spacer Type Bar And Segment offered to promote communication per pt. preference, patient declines, states whiteboard ok for use to communicate with this nurse. Patient responds verbally in response to questions via white board. Pleasant and cooperative. Patient voices pain to back and BLE rated 8/10, patient requests PRN Oxy at this time, administered as ordered per pt. request. Positioned for comfort. Denies further requests. Going to watch a movie now. Call light in reach. No distress observed or reported.
[2024-09-12 20:10] VITALS: PULSE 80; RESP 18; O2SAT 99
[2024-09-12] MEDS: Latanoprost 0.005% 1 Bottle 1 DRP EACH EYE (21:27)
[2024-09-13] MEDS: 0.9% Saline Lock 10 ML Syringe IV ×2 (05:29→21:34)
[2024-09-13 05:34] VITALS: BP 116/61; PULSE 71; RESP 18; TEMP 36.3; O2SAT 99
[2024-09-13] MEDS: Juven (unflavored) Packet 1 PACKET PO (09:07)
[2024-09-13] MEDS: Timolol 0.5% 5ML OPTH.BTL 1 DRP EACH EYE ×2 (09:08→17:55)
--- NOTE | 2024-09-13 12:10 | PN_ITS ---
Subjective Subjective Fartun was seen on TEAM rounds today. We spoke through the construction sales representative via IPAD. All Fartun's questions were answered to her satisfaction. Afebrile VSS - Maintaining appropriate oxygen saturation on RA Oral intake - FOOD good FLUIDS good Discussed with nursing - no problems that need addressed Reviewed the THERAPY notes Medication list reviewed. Yesterday for pain she had 50 mg of Tramadol at about MN, she had 5 mg of oxycodone at approximately 8:15 AM and 10 mg at 8 PM last night. She is c/o burning pain in the legs and in the backside. She actually did better with pain when the Tramadol was scheduled TID. She did not need anything for breakthrough then. Objective Data Objective Data Vital Signs: Vital Signs Temp Pulse Resp BP Pulse Ox O2 Del Method 97.4 F L 71 18 116/61 99 Room Air 09/13/24 05:34 09/13/24 05:34 09/13/24 05:34 09/13/24 05:34 09/13/24 05:34 09/13/24 05:34 Oxygen Delivery Method Room Air Weight: 218 lb 11.177 oz Body Mass Index (BMI) 42.7 Intake & Output: Intake and Output for Last 24 Hours 09/11/24 09/12/24 09/13/24 23:59 23:59 23:59 Intake Total 1490 / 1490 1740 / 1740 360 / 360 Output Total 750 / 750 1000 / 1000 525 / 525 Balance 740 / 740 740 / 740 -165 / -165 Lab / Micro Data 09/13/24 13:41 09/13/24 13:41 Micro: Microbiology 09/07/24 18:48 Stool Stool Occult Blood (GEOVANNY) - Final Occult Blood Positive Social Homelessness:: Sheltered Physical Exam Const alert and no apparent distress General Appearance: cooperative HEENT moist oral mucous membranes Resp clear to auscultation bilaterally Effort and Inspection: Negative for tachypneic Cardio regular rate, regular rhythm and no gallops GI normal to inspection, nondistended, normoactive bowel sounds, soft to palpation and non-tender Extremity no calf tenderness Extremity Narrative: MANDI hose are in place. General Extremity: Negative for edema Skin Skin Narrative: Incision is intact with no dehiscence, no ramy-incisional erythema and no purulent DC. Small amount of serous DC from previous drain site. The swelling around the incision has significantly decreased since admission. General Skin Exam: no breakdown Rashes: no rashes Assessment & Plan Assessment/Plan (1) Physical debility: (2) S/P lumbar fusion: (3) Other acute postprocedural pain: PLAN: radicular pain in both LE's (4) Acute blood loss as cause of postoperative anemia: PLAN: HGB at [place] from rehab is up to 9.7 from 8.2 at admission (5) Obesity due to excess calories with serious comorbidity: QUALIFIERS: Obesity classification: adult class 3 (BMI >= 40) Body mass index: BMI 40.0-44.9 Qualified Code(s): E66.01 - Morbid (severe) obesity due to excess calories; Z68.41 - Body mass index [BMI] 40.0-44.9, adult (6) LEANN (obstructive sleep apnea): (7) Essential hypertension: (8) Deaf: QUALIFIERS: Laterality: bilateral Qualified Code(s): H91.93 - Unspecified hearing loss, bilateral (9) Constipation: QUALIFIERS: Constipation type: drug induced constipation Q ualified Code(s): K59.03 - Drug induced constipation PLAN: Plan 1. Continue therapy 2. Check a CBC without differential and a BMP now - reviewed when results were available. WBC is 12.6 which is down from 14.0 at admission. Hemoglobin is 9.7 which is up from 8.2 at admission. Platelets are increased at 517,000 today......inflammation. Iron studies were negative for iron deficiency. 3. Schedule pain medications (tramadol) again 4. Continue gabapentin 200 mg p.o. nightly and add 100 mg at 7 AM and 2 PM daily 5. Continue Tylenol 1 g p.o. every 8 hours 6. Encouraged her to get up frequently, at least once an hour, to walk to prevent stiffness/increased pain. 7. Will DC home tomorrow to her son's house. HHC at [place]. Charges/Coding Visit Charges Inpatient E&M: 08383 Subs Hosp L2
--- NOTE | 2024-09-13 13:17 | CASEMGMT ---
Social Work IDT met with patient for Team meeting. SW received VM from dtr stating she was still unsure which location pt was DCing too and if she wanted OP or HHC therapy. Discussed patient's progress in PT/OT/SN/MD. Medicare issued DC for 09/14. SW requested location for DC to assisting with finalizing DC. Pt decided to DC to son's house and prefers HHC first, and denies DME needs. Son will transport at DC. SW provided list of skilled HHC agencies within geographical area, [place] with insurance, that include quality and resource data via [employer] guide. SW educated HHC agency will contact pt for SOC date date, but typically 2-3 days after DC, pending PCP signing orders. SW to make HHC referral once AOC is selected. Plan: DC to son's house ([phone], [address], [place]), HHC PT/OT Laura Foy MSW INDUSTRIAL GAS SERVICER
[2024-09-13 13:49] LABS: Hematocrit 30.6 % (37-47); Hemoglobin 9.7 g/dL (12.0-15.0); Mean Corp Hgb Conc 31.7 g/dL (32-36); Mean Corpuscular Volume 99.0 fL (81-99); Mean Platelet Vol. 8.1 fl (6.2-12.0); Platelet Count 517 K/mm3 (150-450); RBC Distribution Width CV 13.8 % (11.6-14.6); RBC Distribution Width SD 49.6 fl (35.1-43.9); Red Blood Count 3.09 M/mm3 (4.2-5.4); White Blood Count 12.6 K/mm3 (4.4-11.0)
[2024-09-13 14:29] LABS: Anion Gap 14 (5-15); BUN 14 mg/dL (4-19); BUN/Creat Ratio 19.5 RATIO (10-20); Calcium,Total 9.6 mg/dL (7.6-11.0); Carbon Dioxide 22.6 mmol/L (21.0-32.0); Chloride 104 mmol/L (98-108); Estimated Creatinine Clearance 83.41 ml/min (50-250); Glucose 131 mg/dL (70-99); Potassium 4.3 mmol/L (3.3-5.1)
--- NOTE | 2024-09-13 16:23 | PCM.DC ---
Discharge Instructions DC O2, CPAP, BIPAP needs Home O2 Discharge instructions: No Dressing / Incision Discharge Activity: May Not Drive, May Shower, Use Walker and - (No bending , twisting or lifting more than 5 lbs. Wear the back brace when you are out of bed. ) Weight Bearing Status: Full weight bearing Lifting Restrictions: No more than 5 lbs. Keep extremity elevated above heart level: Legs Dressing / Incision Call your doctor if your incision/area has: Continuous Slow Oozing, Sudden Increased Bleeding, Increased Pain/ Swelling, Increased Redness, Foul Smelling Discharge and Swelling at the incision site Call your doctor if you observe: Fever of 101 or Higher, Inability to urinate, Inability to have a bowel movement, Shortness of breath, Dizziness, Fainting spells, Swelling in the ankles, Chest pain, Increased palpitations (irregular heartbeat) and Uncontrolled pain Suture Line Care: Avoid Pulling/Pushing and Avoid Pinching/Bending Cleanse incision/area with: Soap & Water Follow Up Care Please Follow Up With: Sushant Lang MD When: 09/19/24 at 2 PM. You will also need to follow up with Dr. Augustin on 09/21/24 at 11:20 AM Test Results: Test results from this visit will be discussed in further detail at your follow-up appointment, if applicable. Pending Tests Upon Discharge: none Discharge Plan Admission Admit Date/Time: 09/03/24 21:43 Primary Reason for Your Visit: Debility due to lumbar decompression and fusion. Attending Provider: Lacy Love Primary Care Provider: Christiana Augustin Instructions Patient Instructions: Caring for Your Incision Additional Instructions / Restrictions: 1. The further away you get from the surgery the better the pain will get. Pain is normal after a back surgery but, usually the pain into the legs is better and the majority of the pain is in the low back where the surgery was done. You may still have some pain ton the legs. We have you on a medication called Gabapentin (also called Neurontin) for the nerve pain in the legs. You are also taking Tylenol 1 GM every 8 hours and Tramadol (pain medication) 3 times a day. We tried changing the Tramadol to just as needed but, this did not work as well and you were complaining of increased pain SO we starting giving it 3 times a day again. The incision looks very good. It is intact with no discharge and there is no redness around the incision. there is a small amount of brownish discoloration around the incision and this is a reaction to the olga NOT an infection. Have someone from your family look at the incision every day. IF it becomes red around the incision (dora if the redness is increasing in size) or if there is pus draining from the incision, or if the swelling increases around the incision call Dr. Lang or Dr. Augustin for instructions on what to do. If you have a fever, night sweats or shaking chills also call Dr. Lang or Dr. Augustin. these things could be a sign of infection. Make sure to talk a walk at least every hour during the day to keep from getting stiff.......this will increase pain. After doing your exercises it helps to ice the back......this will also help with pain. 2. It may take 6 months to a year until you are completely healed and back to feeling good. Be patient. The absolute best thing you can do to help your back pain and prevent more back pain and surgery going forward is to lose weight. For your height you should weigh no more than 130 lbs. There are medications that you can take now to help lose weight. I recommend you discuss your weight with Dr. Augustin and ask what she can do to help you lose weight. It truly will greatly improve the quality of your life and may prevent you from needing additional back surgeries going forward. The dieticians at the hospital have a program they run to help people lose weight....it is called Why Weight and all you need is a referral from Dr. Augustin to get started. Weight loss does not happen quickly but, it is the best thing you can do to help yourself and control pain. Stay active. Keep moving, don't just sit. 3. You were taking a medication called diclofenac prior to your surgery. Diclofenac is similar to Motrin or Advil and it is called a nonsteroidal anti-inflammatory drug. These drugs can inhibit the fusion of the lumbar spine so you will not be able to take this until the bone is fused in your back. No Motrin, Advil, Naprosyn, aspirin or drugs like this. Tylenol is OK to take and Tramadol. 4. If you or your family have any questions after you leave rehab please do not hesitate to call. OFFICE: [phone] CELL: [phone] NURSES STATION ON REHAB: [phone] Discharge Orders/Prescriptions Prescriptions: New gabapentin 100 mg Capsule See Rx Instructions .ROUTE .COMPLEX Qty: 90 0RF Rx Instructions: 100 mg with breakfast, 100 mg after lunch and 200 mg 1 hour prior to bedtime sennosides-docusate sodium [Stimulant Laxative Plus] 8.6-50 mg Tablet 2 tab PO BID Qty: 120 0RF tramadol 50 mg Tablet 50 mg PO TID Qty: 30 0RF Cale (with collagen) 7-7-1.5 gram Powder In Packet 1 packet PO BIDCM Qty: 60 0RF Rx Instructions: OK to discontinue after 1 month verapamil 240 mg Tablet Extended Release 120 mg PO DAILY Qty: 30 0RF Continued calcium carb-D3-mag [id number] [phone] lr-bzoh-lw-mg tablet 1 tab PO DAILY Rx Instructions: administer with a meal (DME) Oral appliance See Rx Instructions .ROUTE .MEDSUPPLY Qty: 1 0RF Rx Instructions: As directed ferrous sulfate [Feosol] 325 mg (65 mg iron) tablet 325 mg PO DAILY torsemide 20 mg tablet 20 mg PO QDAY cyanocobalamin (vitamin B-12) [Vitamin B-12] 500 mcg lozenge 250 mcg PO QDAY omega-3 fatty acids 1,000 mg capsule 1,000 mg PO TID latanoprost 1 DROP bottle 1 drp EACH EYE QHS multivitamin with folic acid 1 TABLET tablet 1 tab PO DAILY timolol maleate 1 DROP drops 1 drp EACH EYE BID acetaminophen 500 mg capsule 1,000 mg PO Q8H levocetirizine 5 mg tablet 5 mg PO QHS PRN (Reason: allergy symptoms) Qty: 90 3RF montelukast 10 mg tablet 10 mg PO QHS Qty: 90 3RF Discontinued lidocaine 5 % adhesive patch,medicated 1 patch topical QDAY Rx Instructions: leave on most painful area for up to 12 hrs pregabalin 100 mg capsule 100 mg PO TID oxycodone 10 mg tablet 5 - 10 mg PO Q4H PRN PRN (Reason: (5mg for pain4-6) & (10mg for pain 7-10)) diclofenac sodium 75 mg tablet,delayed release (DR/EC) 75 mg PO .ARTURO verapamil 120 mg capsule,ext rel. pellets 24 hr 120 mg PO BID Referrals / Follow Up: Christiana Augustin MD [Primary Care Provider] - 09/21/24 11:20 am (appt with TEXTILE TECHNICAL OFFICER) Sushant Lang MD [Non-Staff] - 09/19/24 2:00 pm Disposition Disposition (needs filled in before D/C Order can be placed): Home Health Service
[2024-09-13 18:00] VITALS: BP 119/59; PULSE 84; RESP 16; TEMP 37; O2SAT 97
[2024-09-13 18:25] LABS: Color, Urine Yellow (Yellow); Glucose, Dipstick Normal (Normal); Ketone-Dipstick Negative (Negative); Leukocyte Esterase-Dipstick 25 /ul (Negative); Nitrite-Dipstick Negative (Negative); Occult Blood-Urine Negative /ul (Negative); Protein-Dipstick 15 mg/dl (Negative); Specific Gravity, Urine 1.020 (1.002-1.030); Urine Bilirubin Dipstick Negative (Negative)
[2024-09-13 21:30] VITALS: BP 109/52; PULSE 80; RESP 20; TEMP 36.9; O2SAT 97
[2024-09-13] MEDS: Latanoprost 0.005% 1 Bottle 1 DRP EACH EYE (21:31)
[2024-09-13] MEDS: Senna/Docusate Sodium 1 Tablet 2 TABLET PO (21:32)
[2024-09-13 22:00] VITALS: PULSE 80; RESP 20; O2SAT 97
[2024-09-13 22:52] LABS: Squamous Epithelial Cells - UA 0-5 SEEN /hpf (5-10)
[2024-09-13 22:54] LABS: Mucous, Urine 2+ /hpf (<or=2+); Red Blood Cells-Urine 0-5 SEEN /hpf (0-5)
[2024-09-14 00:14] VITALS: BP 109/52; PULSE 80; RESP 20; TEMP 36.9; O2SAT 97
[2024-09-14 05:23] VITALS: BMI 95.1
[2024-09-14 06:00] VITALS: BP 130/67; PULSE 74; RESP 17; TEMP 36.9; O2SAT 98; BMI 43.1
[2024-09-14] MEDS: Timolol 0.5% 5ML OPTH.BTL 1 DRP EACH EYE (08:23)
[2024-09-14] MEDS: Senna/Docusate Sodium 1 Tablet 2 TABLET PO (08:24)
--- NOTE | 2024-09-14 09:35 | CASEMGMT ---
Social Work SW spoke with pt to inquire about skilled HHC preference. Pt needed to review list but [facility] or [facility]. SW educated HHC agency will contact pt for SOC date date, but typically 2-3 days after DC, pending PCP signing orders and agency information will be on pt's DC paperwork. Pt appreciative. - SW phoned referral to [facility] for PT/OT. They can accept for PT and will assess for OT needs with SOC 09/18. Laura Foy ELDERLY SITTER [employer] MANAGEMENT SPECIALIST
--- NOTE | 2024-09-14 09:42 | PCM.DC.SUM ---
Providers Date of Admission: 09/03/24 Date of Discharge: 09/14/24 Primary Care Physician: Dr. Christiana Augustin MD Consultations 09/08/24 08:05 Consult: Gastroenterology Routine Consulting Provider: [facility] Reason for Consult: Anemia,+hemoccult. EMERGENT Consult: No MD Notified: No Date Notified: 09/08/24 Time Notified: 08:06 Reason For Visit: SPINAL FUSION Diagnosis Discharge Diagnosis (1) Physical debility: Status: Acute Code(s): R53.81 - Other malaise (2) S/P lumbar fusion: Status: Acute Code(s): Z98.1 - Arthrodesis status Plan: 08/30/[address] Sushant Lang at [facility]. (3) Other acute postprocedural pain: Status: Chronic Code(s): G89.18 - Other acute postprocedural pain Plan: Acute on chronic radicular pain in both LE's. Adequately controlled at DC on Gabapentin 100 mg BID and 200 mg at HS. (4) Acute blood loss as cause of postoperative anemia: Status: Acute Code(s): D62 - Acute posthemorrhagic anemia Plan: HGB at DC from rehab is up to 9.7 from 8.2 at admission. She had a heme + stool while on rehab. There was a consult put in for GI on 09/08/[address] Prasad but, patient was not seen. Can foolow up as an OP with Dr. Posey if needed. (5) Obesity due to excess calories with serious comorbidity: Status: Chronic Code(s): E66.09 - Other obesity due to excess calories Qualifiers: Body mass index: BMI 40.0-44.9 Obesity classification: adult class 3 (BMI >= 40) Qualified Code(s): E66.01 - Morbid (severe) obesity due to excess calories; Z68.41 - Body mass index [BMI] 40.0-44.9, adult Plan: We discussed weight loss and how much it will help with back pain and mobility. I suggested she talk with Dr. Augustin about medication to assist with weight loss. I also suggested she consider following up with the [employer] program here at the hospital to assist/student counselor her for weight loss. (6) LEANN (obstructive sleep apnea): Status: Chronic Code(s): G47.33 - Obstructive sleep apnea (adult) (pediatric) Plan: She will continued CPAP and follow up with [facility] Huff going forward. (7) Essential hypertension: Status: Chronic Code(s): I10 - Essential (primary) hypertension Plan: Well controlled. Verapamil SR was decreased from 120 mg twice daily to 120 mg daily while on rehab due to orthostatic hypotension. Blood pressure is well-controlled on verapamil SR 120 mg daily at the time of discharge from rehab. The blood pressure on the morning of discharge was 130/67 and the blood pressure range over the preceding 48 hours was 109/52 to 130/67. The heart rate ranged from 71-88. She denied lightheadedness. (8) Deaf: Status: Chronic Code(s): H91.90 - Unspecified hearing loss, unspecified ear Qualifiers: Laterality: bilateral Qualified Code(s): H91.93 - Unspecified hearing loss, bilateral (9) Constipation: Status: Resolved Code(s): K59.00 - Constipation, unspecified Qualifiers: Constipation type: drug induced constipation Qualified Code(s): K59.03 - Drug induced constipation (10) Hypotension due to hypovolemia: Status: Resolved Code(s): E86.1 - Hypovolemia Plan: Lasix was placed on hold. She had been taking Lasix for LE edema and edema is well controlled at [place] with compression. She was taking Torsemide as an OP. This was restarted at [facility] but, will need to monitor closely for recurrent dehydration/orthostatic hypotension. Would rather see the LE edema managed with wt loss, increased ambulation and compression stockings. (11) Thrombocytosis: Status: Acute Code(s): D75.839 - Thrombocytosis, unspecified Plan 1. DC today to her son's home. 2. HHC at [place] 3. No DME needed......she has 2 walkers at home. May need a shower bench since her son has a tub shower and not a walk in shower. 4. Follow-up appointments have been scheduled with Dr. Augustin send Dr. Lang. 5. She will continue to follow-up with Eli [facility] from pulmonary for obstructive sleep apnea. 6. We discussed wt loss with her during her admission to rehab. She is going to discuss with Dr. Augustin and see if she would benefit from a weight loss medication. She could also follow up with the dieticians at the hospital in the [employer] program to help patients with weight loss. Medications at Discharge Home Medications latanoprost 0.005 % eye drops 1 drp EACH EYE QHS GLAUCOMA 07/28/16 multivitamin with folic acid 400 mcg tablet 1 tab PO DAILY supplement 07/28/16 timolol maleate 0.5 % eye drops 1 drp EACH EYE BID glaucoma 07/28/16 levocetirizine 5 mg tablet 5 mg PO QHS PRN allergy symptoms #90 tabs 05/30/18 montelukast 10 mg tablet 10 mg PO QHS asthma #90 tabs 12/12/18 calcium 333 mg-vit D3 200 unit-magnesium 133 mg-zinc 5 mg tablet 1 tab PO DAILY NOT TAKING 02/15/19 Oral appliance #1 ea 12/06/22 ferrous sulfate 325 mg (65 mg iron) tablet (Feosol) 325 mg PO DAILY supplement 06/13/23 cyanocobalamin (vitamin B-12) 500 mcg lozenges (Vitamin B-12) 250 mcg PO QDAY supplement 06/07/24 omega-3 fatty acids 1,000 mg capsule 1,000 mg PO TID supplement 06/07/24 torsemide 20 mg tablet 20 mg PO QDAY diuretic 06/07/24 acetaminophen 500 mg capsule 1,000 mg PO Q8H PAIN 09/03/24 arginine 7 gram-glutam 7 gram-CaHMB 1.5 [id number]-ty-min oral pwd pkt (Cale (with collagen)) 1 packet PO BIDCM #60 ea 09/13/24 gabapentin 100 mg capsule See Rx Instructions .Route .COMPLEX #90 caps 09/13/24 sennosides 8.6 mg-docusate sodium 50 mg tablet (Stimulant Laxative Plus) 2 tab PO BID #120 tabs 09/13/24 tramadol 50 mg tablet 50 mg PO TID #30 tabs 09/13/24 verapamil 240 mg tablet,extended release 120 mg (1/2 x 240 mg) PO DAILY #30 tabs 09/13/24 Hospital Course Operations - (Decompression and lumbar fusion L2-S1 on 08/30/[address] Lang at the [facility].) Procedures None Summary of Care Provided Minutes Spent on Discharge: 40 Hospital Course: FARTUN MEYER, is a 63 YO F with a PMH of congenital deafness, glaucoma, mild aortic regurgitation, mild-mod TR, reversible cerebrovascular vasoconstriction syndrome, HTN, LEANN, OA, morbid obesity, scoliosis, lumbar canal stenosis and lumbar spondylolisthesis who underwent decompression and spinal fusion of L2-S1 on 08/30/[address] Lang at the [facility]. Post-op course was unremarkable except for complaints of pain and dizziness. 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 No family assist available during the day. Both children work. Transferred to the acute inpt rehab unit at [facility] on 09/03/24 for 3 hours of therapy daily to restore function/independence at or near her level prior to surgery. She has been struggling with progressive spinal canal stenosis with radicular pain in the BL legs, paresthesias and weakness for the past 2 years At admission to rehab she was prescribed Verapamil SR 120 mg twice daily. She was orthostatic and complaining of lightheadedness and the dose was decreased to 120 mg once daily. She was somewhat dehydrated and torsemide was placed on hold. She had not had a BM in several days at presentation to rehab and she was started on stool softeners and given laxatives. She is having regular BM's at the time of DC from rehab. BP is well controlled on Verapamil SR 120 mg at DC from rehab. Fartun had been taking Lyrica 100 mg TID prior to surgery. Following surgery this medication was discontinued by Dr. Lang. Fartun c/o burning pain in the buttocks with radiation into the lateral hip and the lateral thighs. She was started on Gabapentin and at DC from rehab she is taking 100 mg at 0700 and 1400 and 200 mg at 9 PM. She is sleeping well and the radicular pain is adequately controlled. While on rehab a hemoccult stool was checked, due to anemia and it was positive. She had no N/V/epigastric pain/heartburn and no hx of PUD. The HGB has been increasing. Hemoglobin was 8.2 at admission and is 9.7 at the time of discharge from rehab. Iron studies were negative for iron deficiency. She had been taking diclofenac prior to surgery. A GI consult was ordered by Dr. Prasad but, she was not seen. She can follow up with Dr. Posey in the office as an OP if Dr. Augustin feels it is necessary. Fartun did very well on rehab. At the time of discharge she has ambulated up to 275 feet with a front wheeled walker at mod I on the unit and she is ambulated on various surfaces with a front wheel walker at supervision. She is able to transfer from various surfaces at modified. She is able to do 6 sit to stands in 30 seconds at mod I using the bilateral upper extremities to push up from the chair. She can ascend/descend 13 steps with 1 handrail and using the wall on the other side at standby assist. She is independent with eating and modified independent with grooming. She needs minimal assistance with bathing and upper body dressing. She is mod I with lower body dressing, toileting and toilet transfer. She uses adaptive equipment as needed to facilitate doing these activities independently. She is supervision for tub/shower transfer. Fartun was discharged on 09/14/24 home to her son's house. She needed no DME. She ill have HHC to be arranged by the . She has follow up appts scheduled with Dr. Lang and with Dr. Augustin. Physical Exam Const alert, oriented x3 and no apparent distress Constitutional Narrative: Making good eye contact, appropriate. She is reading my lips and conversing with me. She had no questions for me today. With the increase in the Gabapentin yesterday the radicular pain in the buttocks, lateral hips and lateral thighs is much better.........only a little bit today. Slept well last night. Very pleasant and smiling. She was made MOD I in her room yesterday and has been getting up and walking around her room frequently. General Appearance: cooperative and comfortable HEENT normocephalic HEENT Narrative: Dry MM. No evidence of thrush. Tongue protrudes on the midline. Plalate elevates symmetrically. Congenital deafness but, she can speak and she reads lips. Head and Scalp: atraumatic Eyes PERRL, EOMs intact bilaterally, conjunctivae normal and no scleral icterus Eyes Narrative: No discharge from the eyes and no mattering of the eyelashes. General Eye: normal appearance of both eyes Neck no lymphadenopathy, supple, no JVD and no carotid bruits General: trachea midline Chest Chest: symmetrical chest wall rise Resp normal respiratory effort, no use of accessory muscles and clear to auscultation bilaterally Resp Narrative: Not tachypneic. Breathing is not labored. Better air exchange than at admission due to improved effort. No cough. Cardio regular rate, regular rhythm, S1 normal heart sound, S2 normal heart sound, no murmurs, no rub and no gallops Cardio Narrative: No ectopy GI normal to inspection, nondistended, normoactive bowel sounds and soft to palpation GI Narrative: No guarding with palpation. no CVA tenderness Narrative: Denies dysuria. UA yesterday was negative for infection.......it was done due to mildly increased WBC count......it is actually less than it was at Admission to rehab. Back/Spine Back/Spine Narrative: Tenderness around the lumbar incision and with palpation of the lumbar paravertebral muscles. Extremity no clubbing, cyanosis or edema Extremity Narrative: No significant leg edema. MANDI hose in place. Skin Skin Narrative: No rashes, no skin breakdown. The incision is intact with olga in places. No purulent DC. No ramy-incisional erythema. NO pain with palpation of the ramy-incisional area. General Skin Exam: no breakdown Neuro oriented x3 and moves all extremities Neuro Narrative: LE radicular pain is controlled with Gabapentin. Psych affect normal Psych Narrative: Appropriate, making good eye contact. She is pleasant and cooperative. Smiling, no agitation, appears comfortable sitting in the recliner at the bedside. Not fidgeting. NAD Appearance: well kempt Attitude: calm and engaged Activity / Motor Behavior: appropriate eye contact; Negative for psychomotor agitation, psychomotor slowing or fidgetting Thought Process: normal thought process Medical Records Data Homelessness:: Sheltered Weight / BMI Weight Weight: 221 lb Body Mass Index (BMI) 43.1 ABG / Lab / Microbiology Data 09/13/24 13:41 09/13/24 13:41 Laboratory: Laboratory Results - last 24 hr 09/13/24 13:41: WBC 12.6 H, RBC 3.09 L, Hgb 9.7 L, Hct 30.6 L, MCV 99.0, MCH 31.4, MCHC 31.7 L, RDW Std Deviation 49.6 H, RDW Coeff of Luther 13.8, Plt Count 517 H, MPV 8.1, Sodium 140, Potassium 4.3, Chloride 104, Carbon Dioxide 22.6, Anion Gap 14, BUN 14, Creatinine 0.73, Estim Creat Clear Calc 83.41, Est GFR (MDRD) Non-Af 93, BUN/Creatinine Ratio 19.5, Glucose 131 H, Calcium 9.6 09/13/24 18:45: Urine Color Yellow, Urine Clarity Sl. Cloudy, Urine pH 5.0, Ur Specific Hemlock 1.020, Urine Protein 15 H, Urine Glucose (UA) Normal, Urine Ketones Negative, Urine Occult Blood Negative, Urine Nitrite Negative, Urine Bilirubin Negative, Urine Urobilinogen Normal, Ur Leukocyte Esterase 25 H, Urine RBC 0-5 SEEN, Urine WBC 0-5 SEEN, Ur Squamous Epith Cells 0-5 SEEN, Ur Renal Epithelial Cell 0-5 SEEN, Urine Bacteria RARE, Urine Mucus 2+ Microbiology: Microbiology 09/07/24 18:48 Stool Stool Occult Blood (GEOVANNY) - Final Occult Blood Positive D/C Instructions Weight Bearing Status: Full weight bearing Keep extremity elevated above heart level: Legs Call your doctor if your incision/area has: Continuous Slow Oozing, Sudden Increased Bleeding, Increased Pain/ Swelling, Increased Redness, Foul Smelling Discharge and Swelling at the incision site Call your doctor if you observe: Fever of 101 or Higher, Inability to urinate, Inability to have a bowel movement, Shortness of breath, Dizziness, Fainting spells, Swelling in the ankles, Chest pain, Increased palpitations (irregular heartbeat) and Uncontrolled pain Suture Line Care: Avoid Pulling/Pushing and Avoid Pinching/Bending Cleanse incision/area with: Soap & Water DC O2, CPAP, BIPAP Needs Home O2 Discharge instructions: No Pending Tests Upon Discharge: none Please Follow Up With: Sushant Lang MD When: 09/19/24 at 2 PM. You will also need to follow up with Dr. Augustin on 09/21/24 at 11:20 AM Meaningful Use Info Meaningful Use Meaningful Use Diagnoses (Choose all that apply): None applicable Discharge Plan Admission Admit Date/Time: 09/03/24 21:43 Primary Reason for Your Visit: Debility due to lumbar decompression and fusion. Attending Provider: Lacy Love Primary Care Provider: Christiana Augustin Instructions Patient Instructions: Caring for Your Incision Additional Instructions / Restrictions: 1. The further away you get from the surgery the better the pain will get. Pain is normal after a back surgery but, usually the pain into the legs is better and the majority of the pain is in the low back where the surgery was done. You may still have some pain ton the legs. We have you on a medication called Gabapentin (also called Neurontin) for the nerve pain in the legs. You are also taking Tylenol 1 GM every 8 hours and Tramadol (pain medication) 3 times a day. We tried changing the Tramadol to just as needed but, this did not work as well and you were complaining of increased pain SO we starting giving it 3 times a day again. The incision looks very good. It is intact with no discharge and there is no redness around the incision. there is a small amount of brownish discoloration around the incision and this is a reaction to the olga NOT an infection. Have someone from your family look at the incision every day. IF it becomes red around the incision (dora if the redness is increasing in size) or if there is pus draining from the incision, or if the swelling increases around the incision call Dr. Lang or Dr. Augustin for instructions on what to do. If you have a fever, night sweats or shaking chills also call Dr. Lang or Dr. Augustin. these things could be a sign of infection. Make sure to talk a walk at least every hour during the day to keep from getting stiff.......this will increase pain. After doing your exercises it helps to ice the back......this will also help with pain. 2. It may take 6 months to a year until you are completely healed and back to feeling good. Be patient. The absolute best thing you can do to help your back pain and prevent more back pain and surgery going forward is to lose weight. For your height you should weigh no more than 130 lbs. There are medications that you can take now to help lose weight. I recommend you discuss your weight with Dr. Augustin and ask what she can do to help you lose weight. It truly will greatly improve the quality of your life and may prevent you from needing additional back surgeries going forward. The dieticians at the hospital have a program they run to help people lose weight....it is called [employer] [facility] and all you need is a referral from Dr. Augustin to get started. Weight loss does not happen quickly but, it is the best thing you can do to help yourself and control pain. Stay active. Keep moving, don't just sit. 3. You were taking a medication called diclofenac prior to your surgery. Diclofenac is similar to Motrin or Advil and it is called a nonsteroidal anti-inflammatory drug. These drugs can inhibit the fusion of the lumbar spine so you will not be able to take this until the bone is fused in your back. No Motrin, Advil, Naprosyn, aspirin or drugs like this. Tylenol is OK to take and Tramadol. 4. If you or your family have any questions after you leave rehab please do not hesitate to call. OFFICE: [phone] CELL: [phone] NURSES STATION ON REHAB: [phone] Discharge Orders/Prescriptions Prescriptions: New gabapentin 100 mg Capsule See Rx Instructions .ROUTE .COMPLEX Qty: 90 0RF Rx Instructions: 100 mg with breakfast, 100 mg after lunch and 200 mg 1 hour prior to bedtime sennosides-docusate sodium [Stimulant Laxative Plus] 8.6-50 mg Tablet 2 tab PO BID Qty: 120 0RF tramadol 50 mg Tablet 50 mg PO TID Qty: 30 0RF Cale (with collagen) 7-7-1.5 gram Powder In Packet 1 packet PO BIDCM Qty: 60 0RF Rx Instructions: OK to discontinue after 1 month verapamil 240 mg Tablet Extended Release 120 mg PO DAILY Qty: 30 0RF Continued calcium carb-D3-mag [id number] [phone] ut-ekrw-gm-mg tablet 1 tab PO DAILY Rx Instructions: administer with a meal (DME) Oral appliance See Rx Instructions .ROUTE .MEDSUPPLY Qty: 1 0RF Rx Instructions: As directed ferrous sulfate [Feosol] 325 mg (65 mg iron) tablet 325 mg PO DAILY torsemide 20 mg tablet 20 mg PO QDAY cyanocobalamin (vitamin B-12) [Vitamin B-12] 500 mcg lozenge 250 mcg PO QDAY omega-3 fatty acids 1,000 mg capsule 1,000 mg PO TID latanoprost 1 DROP bottle 1 drp EACH EYE QHS multivitamin with folic acid 1 TABLET tablet 1 tab PO DAILY timolol maleate 1 DROP drops 1 drp EACH EYE BID acetaminophen 500 mg capsule 1,000 mg PO Q8H levocetirizine 5 mg tablet 5 mg PO QHS PRN (Reason: allergy symptoms) Qty: 90 3RF montelukast 10 mg tablet 10 mg PO QHS Qty: 90 3RF Discontinued lidocaine 5 % adhesive patch,medicated 1 patch topical QDAY Rx Instructions: leave on most painful area for up to 12 hrs pregabalin 100 mg capsule 100 mg PO TID oxycodone 10 mg tablet 5 - 10 mg PO Q4H PRN PRN (Reason: (5mg for pain4-6) & (10mg for pain 7-10)) diclofenac sodium 75 mg tablet,delayed release (DR/EC) 75 mg PO .ARTURO verapamil 120 mg capsule,ext rel. pellets 24 hr 120 mg PO BID Referrals / Follow Up: Christiana Augustin MD [Primary Care Provider] - 09/21/24 11:20 am (appt with [facility]) Sushant Lang MD [Non-Staff] - 09/19/24 2:00 pm Disposition Disposition (needs filled in before D/C Order can be placed): Home Health Service Charges/Coding Visit Charges Inpatient E&M: 54001 Disch Hosp >30min
--- NOTE | 2024-09-14 14:07 | NURSING ---
Discharged to home with son and son and patient verbalized understanding to wound care and DC instruct.
== END 2024-09-14 14:15 | disposition home health service (06) | DRG 560 ==
PROVIDERS: Family Medicine Geriatric Medicine; Admitting Provider Internal Medicine; PCP Internal Medicine; Visit Provider Internal Medicine
DX: Z47.89 Encounter for other orthopedic aftercare (principal); Z59.00 Homelessness unspecified; D62 Acute posthemorrhagic anemia; Z68.41 Body mass index [BMI] 40.0-44.9, adult; I10 Essential (primary) hypertension; E66.01 Morbid (severe) obesity due to excess calories; G47.33 Obstructive sleep apnea (adult) (pediatric); I95.1 Orthostatic hypotension; M48.061 Spinal stenosis, lumbar region without neurogenic claudication; K59.03 Drug induced constipation; E86.1 Hypovolemia; M41.9 Scoliosis, unspecified; M54.16 Radiculopathy, lumbar region; M43.16 Spondylolisthesis, lumbar region; D75.839 Thrombocytosis, unspecified; H90.5 Unspecified sensorineural hearing loss; Z98.1 Arthrodesis status; H40.9 Unspecified glaucoma; Z79.899 Other long term (current) drug therapy; G89.18 Other acute postprocedural pain
CPT/HCPCS: 36415; 80048; 80053; 81001; 82274; 83540; 83550; 83735; 84100; 85014; 85018; 85025; 85027; 97110; 97116; 97162; 97166; 97530; 97535; 97802; A4216

== ENCOUNTER 2025-01-08 16:30 | Outpatient (RCR) | payer MEDICARE, OTHER, SELFPAY ==
--- NOTE | 2024-10-12 14:03 | HP.PTEVAL ---
Patient's Visit Information Visit Information Visit Information: CHRISTEL MEYER is a 64 year old F referred to Physical Therapy by NICOLE Acharya with a diagnosis of s/p lumbar fusion 08/30, spondylolisthesis, scoliosis. Date of Evaluation: 10/12/24 Physical Therapist: Mitchell Cadena, JACINTOT, OCS, CSCS Visit Plan Frequency: 2x /Week Duration: 4-6 Weeks Plan: Will need to use ipad communicator as patient is deaf 2x/week for 4-6 weeks for (4 on order): IE HEP walking frequent short bouts, avoid bending twisting lifting. Treat with instruction in and progression to I of core mat ex, standing isometric core and LE fucnitonal ex progressing to gait with weight shifts and decreasing AD as able working on cofnidence with wt shifts . Subjective Subjective: laminectomy and fusion 08/30/24 L2-s1 [address] Lang. Long history of back pain. Had numbness and tingling adn burning in R LE and back on L side. 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 In t4ears at times. Has had no pain since surgery. Now was staying with son and then dtr on one floor but she has two stories and stairs are difficult. had to do a lot of them. R leg feels weaker. Feet start to get numb at night at times. Basic ADLs: Dresses adn showers and bathroom I, some light house duties. Wants to geet stronger before vaccuuming. 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 Home will be with son or dtr now. Does not mop or do laundry yet. May get own apartment. Will take 6-12 months according to doctor. HEP: not doing them, may use cans sometimes. Band to use arms. Always use walker , needed it prior to surgery, used to use a cane. Goal: not sure she can get rid of the walker. Stand and walk. Walk without walker. Stand longer with less fatigue. R leg more confident. 15 steps without numbness. Objective Objective: Walks with wh walker mod I into PT on firm flat surface, lacks confidence to walk without AD. Walker on one side works well. FGA with wh walker today. No c/o pain throughout.Trasnfer chair without UE I, steps reciprocally b ut L knee painful, needs rail, poor confidence dn FW weight shift. Incision is healed well adn dry, no signs of redness or infection. Max tight HS and gastroc at -40 90/90 test L >R adn gastroc to -3 DF B. Otherwisee hips and knees and ankle AROM WFL, tightness posterioly. reflexes 1/3 patella dn achilles B. sensation LE WNL to gross lgiht touch. strength UEE 4- hips abd and ext 3, flexion 3+ with core instability. knee and ankles 4-, L feels weaker to patient. - slump and SLR. Balance/Special Test Scores Functional Gait Assessment Score: 19 % Disability: 36.6700 Oswestry Low Back Score: 20 Goals Goal 1:: I appropriate HEP for core strength, LE strength adn fucntional strength gait to diminish future problems. Goal Time Frame: 4-6 Weeks Goal 2:: Pt feel 75% better in mobility and movement without increasing pain past 1/10 Goal Time Frame: 4-6 Weeks Goal 3:: Walk in therapy without AD with 23+ FGA score Goal Time Frame: 4-6 Weeks Goal 4:: Back oswestry score 5 or betteer. Goal Time Frame: 4-6 Weeks Rehabilitation Potential Physical Therapy Diagnosis: weakness and lack of mobility effecting QOL Rehabilitation Potential: Fair Anticipated Interventions Patient/Client Instruction: Educate patient on: Condition and Plan of Care For the Purpose of:: To increase ROM, To improve nutrient delivery to tissue, To improve muscle performance and motor function, To increase tolerance to activity/condition/position and To improve gait and locomotor functions Therapeutic Exercise to Include: Strength training, Postural training, Flexibilty training, Gait and locomotor training, Relaxation training, Passive ROM and Active ROM For the Purpose of:: To increase ROM, To improve nutrient delivery to tissue, To improve muscle performance and motor function, To increase tolerance to activity/condition/position and To improve gait and locomotor functions Text: Thank you for the opportunity to evaluate your patient. For Medicare and Medicare HMO plans, please review the plan of care and approve it. It will need to be FAXED BACK to us at [phone] for Medicare purposes. For Medicare only, by signing this I certify the plan of care. Please let me know if there are questions or concerns regarding this plan of care. Physician Signature: Date:
--- NOTE | 2024-11-14 16:50 | HP.PTREVAL_ITS ---
Re-Evaluation Intro: NICOLE Acharya, It has been my pleasure to treat CHRISTEL MEYER over the last 10 visits for s/p lumbar fusion 08/30, spondylolisthesis, scoliosis. Please see the progress note below for an update on the physical therapy plan of care! Subjective Subjective: Better. Sitting long time and tailbone bothers her. Can wash dishes now. has alittle pain right now 2/10 intermittent. Stiff but can sit for an hour before pain returns. Sleep really well. Numbness in feet comes and goes in R leg mostly sometimes at night. Not terrible pain bearable and doctor said it could be 6-12 months. HEP: home going well. Walking alot. Wants to leearn exercises in gym to set up herself adn may be realistic to do 2-3x/week on her own. Cooking for self is going well. Using wh walker. Goes now and then at home without it. uses it for balance more than any pain. Still avoiding bending lifting twisting as much as she can. Puts own shoes on. feels it cramping in thigh to reach for shoe. Sees doctor Tuesday. Would like to get rid of walker. Objective Objective/Function: Pt doing well with pain not being out of the ordinary or an issue. sleeping well. Walking well with wh walker mod I, Walks 400 feet today without AD slow and hesitant wieeght shift but I. FGA done without AD today. Avoids L knee on steps descending due to arthritis and pain but otherwise Ok with two rails. Lumb ar AROM ext mod limtied, flexion hesitant adn mod limited, SB cause some tightness in back with funcitonal ROM. overall doing vwery well with pain, sleep and needs to progress to new POC to g et I with isometric core and general strength adn improved gait /balance. NEW POC and goals, fair prognosis Plan Plan Plan: 2x/week for 4 weeks , pt to continue current HEP at home. Pleasee work in clinic on ... 1. teach set up and progression of gym exercises for LE strength, isometric core strength, include (leg press, hip abd, glut ham, knee ext, knee flexion, pullk down, row, shoulder press.) Work to i for membership. 2. Please work on walking in clinic without AD or cane for balance and function and confidence. Same goals appropriat for 4 more weeks POC to mid Novemb er. Balance/Gait/Functional tests Balance/Special Test Scores Functional Gait Assessment Score: 18 % Disability: 40.0000 Oswestry Low Back Score: 18 Goals Goals Goal 1:: I appropriate HEP for core strength, LE strength adn fucntional strength gait to diminish future problems. Goal Time Frame: 4-6 Weeks Goal Progress: needs gym Goal 2:: Pt feel 75% better in mobility and movement without increasing pain past 1/10 Goal Time Frame: 4-6 Weeks Goal Progress: unrated, pain not issue Goal 3:: Walk in therapy without AD with 23+ FGA score Goal Time Frame: 4-6 Weeks Goal Progress: walks, neeeds balance Goal 4:: Back oswestry score 5 or betteer. Goal Time Frame: 4-6 Weeks Goal Progress: Progressing Anticipated Interventions Anticipated Interventions Patient/Client Instruction: Educate patient on: Condition and Plan of Care For the Purpose of:: To increase ROM, To improve nutrient delivery to tissue, To improve muscle performance and motor function, To increase tolerance to a ctivity/condition/position and To improve gait and locomotor functions Therapeutic Exercise to Include: Strength training, Postural training, Flexibilty training, Gait and locomotor training, Relaxation training, Passive ROM and Active ROM For the Purpose of:: To increase ROM, To improve nutrient delivery to tissue, To improve muscle performance and motor function, To increase tolerance to activity/condition/position and To improve gait and locomotor functions Re-Evaluation Ending Re-evaluation ending: Please do not hesitate to contact me at [phone] by phone or if you have questions or concerns regarding this new plan of care! Sincerely, Mitchell Cadena, DPT, OCS, CSCS
--- NOTE | 2025-01-08 16:59 | HP.PTDCSUM ---
Discharge Summary D/C summary: It has been my pleasure to treat CHRISTEL MEYER referred by NICOLE Acharya, with the diagnosis of s/p lumbar fusion 08/30, spondylolisthesis, scoliosis for a total of 16 visit(s). Discharge Date: Please see the following information for a summary of their discharge status. Subjective Subjective: Good. Misstepped one time and felt it in spine. LB is not hurting , R leg much better. Sciatica is gone. Sleeping OK now. Some exercises at home, lots of steps at home adn gets tird quickly. Has been doing machines in therapy and can do it hrself although sometimes reaching down to machine is a little tough. Very busy this month and will join next year. F/u with doctor is soon next week. activities: No life is normal. No falls and walks without walker at home sometimes short distances. 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 ROM Lumbar ext mod deficits and painfree, flexion hand to floor I with recovery. SB is min deeficits and painfree. Walking with wh walker mod I. without walkeer looks good for short distancees on firm flat surface today. Ready to be done with PT but will join gym after busyness of holidays. Goals Goal 1:: I appropriate HEP for core strength, LE strength adn fucntional strength gait to diminish future problems. Goal Progress: Goal Met Goal 2:: Pt feel 75% better in mobility and movement without increasing pain past 02/16 Goal Progress: unrated, pain not issue Goal 3:: Walk in therapy without AD with 23+ FGA score Goal Progress: Progressing Goal 4:: Back oswestry score 5 or betteer. Goal Progress: Progressing Plan Plan: d/c, pt to doctor next week. Doing well although compliance with HEP is quesitonable, does plan on joining gym in year and continuing as member. D/C Information d/c sentence: If there are questions or concerns regarding this patient's physical therapy, please feel free to call me at [phone]. Thank you for the referral of this patient. Sincerely, Mitchell Surinder, DPT, OCS, CSCS Balance/Gait/Functional tests Balance/Special Test Scores Functional Gait Assessment Score: 18 % Disability: 40.0000 Oswestry Low Back Score: 18 Improvement % Improvement: 75
== END 2025-01-08 19:00 | disposition home or self-care (01) ==
LOC: PT 16:30
PROVIDERS: PCP Internal Medicine; Referring Provider Physician Assistant; Visit Provider Physician Assistant
DX: Z98.1 Arthrodesis status (principal); M41.56 Other secondary scoliosis, lumbar region; M43.17 Spondylolisthesis, lumbosacral region
CPT/HCPCS: 97110; 97162; 97164